=== PATIENT | male | born 1950 | race Caucasian/White ===

== ENCOUNTER 2021-06-23 10:22 | Outpatient (CLI) | payer MEDICARE, SELFPAY | END 2021-06-23 10:23 | disposition home or self-care (01) | LOC: ANHAUDIO 10:24 | PROVIDERS: PCP Emergency Medicine; Visit Provider Emergency Medicine | DX: H90.3 Sensorineural hearing loss, bilateral (principal) | CPT/HCPCS: 92557; 92567 ==

== ENCOUNTER → 2021-12-15 11:50 | Outpatient (CLI) | payer MEDICARE, SELFPAY ==
--- NOTE | ~2021-12-15 | XR_ITS ---
EXAMINATION: XR chest 2V DATE: 12/15/2021 12:05 INDICATION: COVID pneumonia TECHNIQUE: PA and lateral views of the chest were obtained. COMPARISON: Chest radiograph dated 11/23/2013 FINDINGS: Stable appearance of a cluster small calcified nodules and associated linear atelectasis/scarring at the lateral right mid to upper lung zone. Cluster of a few additional small calcified nodules in the left midlung zone. Mild biapical pleural-parenchymal scarring. Additional mild peripheral atelectasis /scarring at the lateral left lower lung zone. No other airspace opacities, pulmonary edema, pleural effusion or pneumothorax. The cardiomediastinal silhouette is normal. Mild thoracolumbar dextrocurvat ure with severe spondylosis. Partially visualized bilateral vertical nevaeh and screw fixation at the ca udal margin of the field of imaging. IMPRESSION: 1. No acute cardiopulmonary disease. Reviewed, dictated and finalized at location B.
== END ==
PROVIDERS: PCP Emergency Medicine; Visit Provider Emergency Medicine
DX: U07.1 COVID-19 (principal); J12.82 Pneumonia due to coronavirus disease 2019
CPT/HCPCS: 71046

== ENCOUNTER 2022-01-26 14:00 | Outpatient (RCR) | payer MEDICARE, SELFPAY | END 2022-01-26 23:59 | disposition home or self-care (01) | LOC: ANHAUDIO 14:00 | PROVIDERS: PCP Emergency Medicine; Visit Provider Emergency Medicine | DX: Z46.1 Encounter for fitting and adjustment of hearing aid (principal) | CPT/HCPCS: 99199; V5160; V5261 ==

== ENCOUNTER 2022-02-27 09:13 | Outpatient (RCR) | payer MEDICARE, SELFPAY | END 2022-02-27 23:59 | disposition home or self-care (01) | LOC: ANHAUDIO 09:13 | PROVIDERS: PCP Emergency Medicine; Visit Provider Emergency Medicine | DX: Z46.1 Encounter for fitting and adjustment of hearing aid (principal) | CPT/HCPCS: 99199 ==

== ENCOUNTER 2022-07-13 15:18 | Observation (INO) | payer MEDICARE, SELFPAY ==
[2022-07-13] VITALS (30 sets, daily range): BP systolic 96–123; BP diastolic 64–86; PULSE 73–103; RESP 11–28; TEMP 36.6–37; O2SAT 93–98; BMI 23.5
--- NOTE | ~2022-07-13 | XR_ITS ---
EXAMINATION: XR chest 1V portable Exam Date/Time: 07/13/2022 15:50 CROSSING WATCHMAN HISTORY: SOB, WEAKNESS 1WK AND GETTING WORSE Comparison: 12/15/2021. RESULT: Lines, tubes, and devices: None. Lungs and pleura: Stable left mid and right peripheral reticulonodular opacities. Slightly increased diffuse reticular opacities. Cardiomediastinal silhouette: Stable. Other: No acute osseous or upper abdominal finding. IMPRESSION: Worsening reticular pulmonary opacities may reflect mild interstitial edema versus atypical infection . Reviewed, dictated and finalized at location K. SING WATCHMAN IMPRESSION: Worsening reticular pulmonary opacities may reflect mild interstitial edema daniel roberto atypical infection.
--- NOTE | 2022-07-13 15:33 | ECG_ITS ---
Measurements Intervals [place] Rate: 77 P: 64 CO: 148 QRS: 15 QRSD: 94 T: 52 QT: 374 QTc: 425 Interpretive Statements SINUS RHYTHM CANNOT RULE OUT SEPTAL INFARCT, AGE INDETERMINATE ABNORMAL ECG COMPARED TO ECG 08/25/2018 11:54:39 NO SIGNIFICANT CHANGES Electronically Signed On 07-13-2022 20:24:39 CONDITIONER TUMBLER by Zana Hill D.O.
[2022-07-13 15:55] LABS: Basophils Percent Auto 0.4 % (0.2-1.2); Eosinophils Absolute Auto 0.1 K/mm3 (0-0.3); Eosinophils Percent Auto 0.7 % (0-4.4); Hematocrit 33.7 % (42.0-52.0); Immature Granulocyte Absolute 0.02 K/mm3 (0.00-0.031); Immature Granulocyte Percent A 0.2 % (0-0.5); Lymphocytes Absolute Auto 2.83 K/mm3 (0.9-3.2); Lymphocytes Percent Auto 31.1 % (18.3-44.2); Mean Corpuscular HGB Conc 32.6 g/dl (32-36); Mean Corpuscular Hemoglobin 28.6 pg (26-34); Mean Corpuscular Volume 87.5 fl (80-100); Mean Platelet Volume 8.8 fl (7.4-10.4); Monocytes Absolute Auto 0.9 K/mm3 (0.1-0.6); Monocytes Percent Auto 10.3 % (2.6-8.5); Neutrophils Absolute Auto 5.2 K/mm3 (1.3-6.7); Neutrophils Percent Auto 57.3 % (45.5-73.1); Platelet Count Result 414 k/mm3 (150-375); Red Blood Count 3.85 M/mm3 (4.6-6.20); Red Cell Distribution Width 13.6 % (11.5-14.5); White Blood Count 9.1 K/mm3 (4.5-10.0)
[2022-07-13 16:08] LABS: Alanine Aminotransferase 14 U/L (6-50); Albumin Level 3.8 g/dL (3.5-5.1); Alkaline Phosphatase 102 U/L (38-126); Anion Gap 8 mmol/L (8-16); Aspartate Amino Transferase 17 U/L (17-59); Bilirubin,Total 0.4 mg/dL (0.2-1.3); Blood Urea Nitrogen 12 mg/dL (9-20); Calcium 8.6 mg/dL (8.4-10.2); Carbon Dioxide 23 mmol/L (22-30); Chloride 107 mmol/L (98-107); Estimated CRCL calculation 74 ml/min; Estimated Glomerular Filt Rate > 60; Glucose 94 mg/dL (65-110); Sodium 138 mmol/L (137-145)
--- NOTE | 2022-07-13 16:08 | ED.SOB ---
HPI - SOB/Dyspnea General Chief Complaint: Shortness of Breath/Dyspnea Stated Complaint: INCREASED SOB, WEAKNESS Time Seen by Provider: 07/13/22 16:00 History of Present Illness HPI Narrative: Pt presents with progressively worsening SOB with exertion for the last week. Pt has history of COPD. Pt had a fever he thinks last night but tylenol relieved it. Pt denies CP. Pt has occasional cough. Related Data Allergies Allergy/AdvReac Type Severity Reaction Status Date / Time oxycodone Allergy Severe HIVES Verified 09/22/19 10:21 Review of Systems Review of Systems: All systems reviewed & are unremarkable except as noted in HPI and below PMFSH Family History Family History (System 09/22/19 @ 10:21 by Yumiko Murray) Sibling Patient's brother is in good health Other Family history of tuberculosis Social History Social History (System 09/22/19 @ 10:21 by Yumiko Murray) Smoking status: Former smoker Alcohol intake: never Exam Const: General: no acute distress Nutritional Appearance: well nourished Orientation/consciousness: patient oriented x3 Limitations: no limitations Eyes: Conjunctivae: conjunctivae normal EOM: EOMs intact bilaterally Chest: Chest palpation & inspection: normal inspection of the chest Resp: Effort & Inspection: normal respiratory effort Auscultation: diminished lung sounds Cardio: Rate: regular rate Rhythm: regular rhythm GI: GI Palp: Yes Soft to palpation Auscultation: normal bowel sounds Skin: General skin exam: normal color Wounds: no wounds Neuro: General: patient oriented x3, moves all extremities, no focal motor deficits and CN's II-XI intact bilaterally Speech: normal speech Extrem: General: normal to inspection and no clubbing, cyanosis or edema Psych: Mental Status: mental status grossly normal Affect: normal affect Attitude: cooperative Course Vital Signs Vital signs: Vital Signs Temperature 98.6 F 07/13/22 15:28 Pulse Rate 80 07/13/22 15:28 Respiratory Rate 21 H 07/13/22 15:28 Blood Pressure 118/78 07/13/22 15:28 Pulse Oximetry 98 07/13/22 15:28 Oxygen Delivery Nasal Cannula 07/13/22 15:28 Oxygen Flow Rate 3 07/13/22 15:28 Temperature 98.6 F 07/13/22 15:28 Pulse Rate 92 07/13/22 18:03 Respiratory Rate 28 H 07/13/22 18:03 Blood Pressure 112/64 07/13/22 18:03 Pulse Oximetry 98 07/13/22 17:47 Oxygen Delivery Nasal Cannula 07/13/22 15:28 Oxygen Flow Rate 3 07/13/22 15:28 MDM - SOB/Dyspnea MDM Narrative Medical decision making narrative: Pt presents with progressivley worsening SOB with exertion over the last week. likely copd exacerbation but need to rule out CAD and pneumonia and chf. ekg, labs and cxr ordered as well as a neb treatment and solumedrol. pt slighlty better after neb and steroids but stil sob, cxr shows atypical pneumonia. discussed with sara jones admit to obs and treat with zithromax Differential Diagnosis Differential diagnosis: Likely acute exacerbation of chronic obstructive airways disease, congestive heart failure, community acquired pneumonia and asthma with exacerbation Medical Records Attestation: I reviewed the patient's medical records. Lab Data Attestation: I reviewed the patient's lab results. 07/13/22 15:43 07/13/22 15:43 Labs: Lab Results 07/13/22 07/13/22 07/13/22 Range/Units 15:42 15:43 15:43 WBC 9.1 (4.5-10.0) K/mm3 RBC 3.85 L (4.6-6.20) M/mm3 Hgb 11.0 L (14.0-18.0) g/dL Hct 33.7 L (42.0-52.0) % MCV 87.5 (80-100) fl MCH 28.6 (26-34) pg MCHC 32.6 (32-36) g/dl RDW 13.6 (11.5-14.5) % Plt Count 414 H (150-375) k/mm3 MPV 8.8 (7.4-10.4) fl Immature Gran % (Auto) 0.2 (0-0.5) % Neut % (Auto) 57.3 (45.5-73.1) % Lymph % (Auto) 31.1 (18.3-44.2) % [place] % (Auto) 10.3 H (2.6-8.5) % Eos % (Auto) 0.7 (0-4.4) % Baso % (Auto) 0.4 (0.2-1.2) % Lymph # (Auto) 2.83
[2022-07-13 16:14] LABS: INR 2.2; Partial Thromboplastin Time 56.4 SECONDS (22.3-36.8); Prothrombin Time 23.9 Seconds (11.1-14.7)
[2022-07-13 16:18] LABS: NT Pro B Type Natriuretic Pept 69 pg/mL (19.9-100); Troponin I < 0.012 ng/mL (0.000-0.034)
[2022-07-13] MEDS: IPRATROPIUM BR 0.02% INH SOLN 0.5 MG/2.5 ML VIAL INHALATION ×2 (16:28→21:37)
[2022-07-13] MEDS: ALBUTEROL SULFATE NEB 2.5 MG/3 ML INH INHALATION (16:28)
[2022-07-13 16:31] LABS: Influenza A QL RT-PCR Negative (Negative); Influenza B QL RT-PCR Negative (Negative); SARS-CoV-2 RNA PCR Negative
[2022-07-13] MEDS: methylPREDNISolone SOD SUCC 125 MG VIAL IV PUSH (16:32)
--- NOTE | 2022-07-13 17:30 | PM.IMHP ---
H&P: HPI History of Present Illness Date/Time: 07/13/22 17:30 Chief Complaint: Shortness of breath. Narrative: This is a 72-year-old male with former smoker with COPD, paroxysmal atrial fibrillation on anticoagulation, and history of stroke who presented to the ED for evaluation of shortness of breath. He has not been feeling well for approximately 1 week with generalized malaise, decreased energy, wheezing, increasing dyspnea on lesser and lesser exertion, and a fever of 101.7? last night. His gave him Tylenol last night and the fever has not returned. He has been using his nebulizers and inhalers at home which unfortunately have not provided him with longstanding benefit with regards with shortness of breath and wheezing and he came in today for evaluation. He was negative for influenza and COVID. Chest x-ray showed worsening reticular pulmonary opacities which may reflect mild interstitial edema versus atypical infection. In the ED he was given a nebulizer and Solu-Medrol with some improvement. He has been started on antibiotics and is being admitted for further care. His grandson has had similar symptoms. He denies chest pain and pleuritic pain. Appetite has been good he denies nausea, vomiting, and diarrhea. No dysuria. Review of Systems Review of Systems: Twelve systems were reviewed and are negative except for as per HPI. [facility] Past Medical History Medical History Arthritis Cerebrovascular accident No significant residual deficits. Chronic anticoagulation Chronic obstructive pulmonary disease Dyslipidemia Obstructive sleep apnea Paroxysmal atrial fibrillation Tobacco dependence Surgical History Surgical History History of fusion of cervical spine History of lumbosacral spine surgery History of right knee joint replacement Family History Family History Sibling Patient's brother is in good health Other Family history of tuberculosis Social History Social History (Updated 07/14/22 @ 00:34 by Azra Kirk PA-C) Social History: Surrogate medical decision maker: Rosemary Benoit, spouse. Code status: Full code. Smoking packs per day: 1.5 Smoking cigarettes per day: 30.0 Years smoked: 50 Smoking pack-years: 75.00 Smoking status: Former smoker Tobacco type: cigarettes Alcohol intake: never Substance use: never Lack of Transportation: YES Lack of Food: Never True Current Housing: I Have Housing Concerned About Future Housing: No Difficulty Paying Gas/Electric Bills: No Difficulty Paying for Meds: No Currently Unemployed: No Education: High School Diploma/GED Difficulty w/ Childcare or Family Care: No Additional living arrangements comments: Lives with spouse in [place]. 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 Spiritual care concerns: No Meds Home Medications and Allergies Allergies Allergy/AdvReac Type Severity Reaction Status Date / Time oxycodone Allergy Severe HIVES Verified 09/22/19 10:21 Vital Signs Vital Signs - 24 hr 07/13/22 15:28 07/13/22 15:45 07/13/22 16:29 Temperature 98.6 F Pulse Rate 80 80 73 Respiratory Rate 21 H 21 H Blood Pressure 118/78 Pulse Oximetry 98 Oxygen Delivery Nasal Cannula Oxygen Flow Rate 3 07/13/22 16:41 Temperature Pulse Rate 82 Respiratory Rate 21 H Blood Pressure Pulse Oximetry Oxygen Delivery Oxygen Flow Rate H&P: Results Labs Labs: Short CBC 07/13/22 Range/Units 15:43 WBC 9.1 (4.5-10.0) K/mm3 Hgb 11.0 L (14.0-18.0) g/dL Hct 33.7 L (42.0-52.0) % Plt Count 414 H (150-375) k/mm3 BMP 07/13/22 15:43 Sodium 138 Potassium 4.0 Chloride 107 Carbon Dioxide 23 BUN 12 Creatinine 0.80 Glucose 94 Calcium 8.6 Cardiac Enzymes
--- NOTE | 2022-07-13 20:12 | ADMGEN ---
This patient, Fer Benoit, was admitted to Medical Room 346-. Patient/family oriented to hospital policies and general routines including ID bracelet, bed and alarms, visiting hours, pain management, procedures, bathroom and other care routines, personal items, smoking policy, room service/diet, and visiting hours. Information on how to activate the Rapid Response Team has been discussed. Patient/Family are encouraged to report perceived risks to care and to ask questions if they do not understand what they are told or what they should do.
[2022-07-13] MEDS: ALBUTEROL SULFATE NEB 2.5 MG/3 ML INH 5 MG INHALATION (21:37)
[2022-07-13] MEDS: SODIUM CHLORIDE 0.9% IV 1,000 ML 125 ML IV CONT (21:48)
[2022-07-14] VITALS (7 sets, daily range): BP systolic 117; BP diastolic 58; PULSE 84–92; RESP 18–20; TEMP 36.3; O2SAT 94–96
[2022-07-14] MEDS: ALBUTEROL SULFATE NEB 2.5 MG/3 ML INH INHALATION ×2 (03:17→07:49)
[2022-07-14] MEDS: IPRATROPIUM BR 0.02% INH SOLN 0.5 MG/2.5 ML VIAL INHALATION ×2 (03:17→07:50)
--- NOTE | 2022-07-14 04:00 | PCRCNOTE ---
WILL BRING HIS CPAP IN IF HE STAYS ANOTHER NIGHT
[2022-07-14] MEDS: SODIUM CHLORIDE 0.9% IV 1,000 ML 125 ML IV CONT (06:03)
[2022-07-14 06:10] LABS: Hematocrit 34.8 % (42.0-52.0); Hemoglobin 11.2 g/dL (14.0-18.0); Mean Corpuscular HGB Conc 32.2 g/dl (32-36); Mean Corpuscular Hemoglobin 28.4 pg (26-34); Mean Corpuscular Volume 88.3 fl (80-100); Mean Platelet Volume 8.6 fl (7.4-10.4); Platelet Count Result 427 k/mm3 (150-375); Red Blood Count 3.94 M/mm3 (4.6-6.20); Red Cell Distribution Width 13.4 % (11.5-14.5); White Blood Count 8.8 K/mm3 (4.5-10.0)
[2022-07-14 06:21] LABS: Anion Gap 5 mmol/L (8-16); Blood Urea Nitrogen 11 mg/dL (9-20); Calcium 8.9 mg/dL (8.4-10.2); Carbon Dioxide 26 mmol/L (22-30); Chloride 105 mmol/L (98-107); Estimated CRCL calculation 90 ml/min; Estimated Glomerular Filt Rate > 60; Glucose 189 mg/dL (65-110); Magnesium 2.2 mg/dL (1.6-2.3); Sodium 136 mmol/L (137-145)
--- NOTE | 2022-07-14 08:18 | P.PNIM_ITS ---
Progress Note: A&P Assessment and Plan (1) Acute exacerbation of chronic obstructive airways disease: Code(s): J44.1 - Chronic obstructive pulmonary disease with (acute) exacerbation Status: Acute Assessment and Plan: * presented to the emergency department from home for evaluation of increasing shortness of breath over past 1 week. * Denies increased cough with sputum production or changes in sputum * Azithromycin on board * Sputum culture ordered * Continue Steroids 40mg PO daily * Neb treatments (2) Atypical pneumonia: Code(s): J18.9 - Pneumonia, unspecified organism Status: Acute Assessment and Plan: * Chest xray shows atypical PNA vs pulm edema * BNP 69 * Azithromycin and ceftriaxone on board * WBC stable at8.8 * Sputum culture ordered * Pneumococcal and legionella ordered and pending * Blood cultures ordered * Continue supplemental oxygen, wean to maintain saturations >90% (3) Paroxysmal atrial fibrillation: Code(s): I48.0 - Paroxysmal atrial fibrillation Status: Acute Assessment and Plan: * History of Afib * continue Xarelto for stroke prophylaxis * EKG shows SR * HR is controlled (4) Chronic anticoagulation: Code(s): Z79.01 - hoister (current) use of anticoagulants Status: Acute Assessment and Plan: * See above (5) Dyslipidemia: Code(s): E78.5 - Hyperlipidemia, unspecified Status: Acute Assessment and Plan: * Continue home atorvastatin * Lipid panel in the am (6) Hypertension: Code(s): I10 - Essential (primary) hypertension Status: Acute Assessment and Plan: * Current BP is 117/58 * Continue losartan * Trend BP * Adjust therapy as indicated Time Spent With Patient Time with patient: Greater than 35 minutes Subjective Date/time seen: 07/14/22 08:18 Interval history: 07/14/22 07/13/22? 17:30 This is a 72-year-old male with former smoker with COPD, paroxysmal atrial fibrillation on anticoagulation, and history of stroke who presented to the ED for evaluation of shortness of breath. He has not been feeling well for approximately 1 week with generalized malaise, decreased energy, wheezing, increasing dyspnea on lesser and lesser exertion, and a fever of 101.7? last night. His gave him Tylenol last night and the fever has not returned. He has been using his nebulizers and inhalers at home which unfortunately have not provided him with longstanding benefit with regards with shortness of breath and wheezing and he came in today for evaluation. He was negative for influenza and COVID. Chest x-ray showed worsening reticular pulmonary opacities which may reflect mild interstitial edema versus atypical infection. In the ED he was given a nebulizer and Solu-Medrol with some improvement.? He has been started on antibiotics and is being admitted for further care. His grandson has had similar symptoms.? He denies chest pain and pleuritic pain.? Appetite has been good he denies nausea, vomiting, and diarrhea. No dysuria. Review of Systems Review of Systems: All systems reviewed & are unremarkable except as noted in HPI and below Exam Narrative: General: well-nourished, w
--- NOTE | 2022-07-14 08:18 | PM.IMPN ---
Progress Note: A&P Assessment and Plan (1) Acute exacerbation of chronic obstructive airways disease: Code(s): J44.1 - Chronic obstructive pulmonary disease with (acute) exacerbation Status: Acute Assessment and Plan: presented to the emergency department from home for evaluation of increasing shortness of breath over past 1 week. Denies increased cough with sputum production or changes in sputum Azithromycin on board Sputum culture ordered Continue Steroids 40mg PO daily Neb treatments (2) Atypical pneumonia: Code(s): J18.9 - Pneumonia, unspecified organism Status: Acute Assessment and Plan: Chest xray shows atypical PNA vs pulm edema BNP 69 Azithromycin and ceftriaxone on board WBC stable at8.8 Sputum culture ordered Pneumococcal and legionella ordered and pending Blood cultures ordered Continue supplemental oxygen, wean to maintain saturations >90% (3) Paroxysmal atrial fibrillation: Code(s): I48.0 - Paroxysmal atrial fibrillation Status: Acute Assessment and Plan: History of Afib continue Xarelto for stroke prophylaxis EKG shows SR HR is controlled (4) Chronic anticoagulation: Code(s): Z79.01 - terminal gauger (current) use of anticoagulants Status: Acute Assessment and Plan: See above (5) Dyslipidemia: Code(s): E78.5 - Hyperlipidemia, unspecified Status: Acute Assessment and Plan: Continue home atorvastatin Lipid panel in the am (6) Hypertension: Code(s): I10 - Essential (primary) hypertension Status: Acute Assessment and Plan: Current BP is 117/58 Continue losartan Trend BP Adjust therapy as indicated Time Spent With Patient Time with patient: Greater than 35 minutes Subjective Date/time seen: 07/14/22 08:18 Interval history: 07/14/22 07/13/22? 17:30 This is a 72-year-old male with former smoker with COPD, paroxysmal atrial fibrillation on anticoagulation, and history of stroke who presented to the ED for evaluation of shortness of breath. He has not been feeling well for approximately 1 week with generalized malaise, decreased energy, wheezing, increasing dyspnea on lesser and lesser exertion, and a fever of 101.7? last night. His gave him Tylenol last night and the fever has not returned. He has been using his nebulizers and inhalers at home which unfortunately have not provided him with longstanding benefit with regards with shortness of breath and wheezing and he came in today for evaluation. He was negative for influenza and COVID. Chest x-ray showed worsening reticular pulmonary opacities which may reflect mild interstitial edema versus atypical infection. In the ED he was given a nebulizer and Solu-Medrol with some improvement.? He has been started on antibiotics and is being admitted for further care. His grandson has had similar symptoms.? He denies chest pain and pleuritic pain.? Appetite has been good he denies nausea, vomiting, and diarrhea. No dysuria. Review of Systems Review of Systems: All systems reviewed & are unremarkable except as noted in HPI and below Exam Narrative: General: well-nourished, well-appearing 72-year-old male, sitting up in bed, comfortable, NARD Neuro: awake, alert and oriented x4, speech clear, no focal neuro deficits noted HEENMT: normocephalic, atraumatic, EOMI, sclerae anicteric, moist oral mucosa Respiratory: Clear to auscultation bilaterally without crackles, rhonchi or wheezes, nonlabored breathing Cardio: regular rate, regular rhythm with S1-S2 Abdomen: nondistended, normoactive bowel sounds, soft, nontender to palpation Extremities: no edema, erythema, or tenderness to palpation, DP pulses 2+ bilaterally Skin: no rashes or lesions, warm and dry Psych: appropriate mood and affect, judgment and insight
[2022-07-14] MEDS: TAMSULOSIN HCL 0.4 MG CAPSULE PO (09:51)
[2022-07-14] MEDS: PANTOPRAZOLE 40 MG TABLET PO (09:51)
[2022-07-14] MEDS: ATORVASTATIN 40 MG TABLET PO (09:51)
[2022-07-14] MEDS: LOSARTAN POTASSIUM 25 MG TABLET PO (09:51)
[2022-07-14] MEDS: predniSONE 20 MG TABLET 40 MG PO (09:51)
--- NOTE | 2022-07-14 11:00 | PM.DS ---
DS: Admitting Diagnosis Discharge Date 07/14/22 1100 Admitting Diagnosis Atypical pneumonia, COPD DS: Discharge Diagnosis Discharge Diagnosis (1) Acute exacerbation of chronic obstructive airways disease: Code(s): J44.1 - Chronic obstructive pulmonary disease with (acute) exacerbation Status: Acute Assessment and Plan: presented to the emergency department from home for evaluation of increasing shortness of breath over past 1 week. Denies increased cough with sputum production or changes in sputum Azithromycin on board Sputum culture ordered Continue Steroids 40mg PO daily Neb treatments (2) Atypical pneumonia: Code(s): J18.9 - Pneumonia, unspecified organism Status: Acute Assessment and Plan: Chest xray shows atypical PNA vs pulm edema BNP 69 Azithromycin and ceftriaxone on board WBC stable at8.8 Sputum culture ordered Pneumococcal and legionella ordered and pending Blood cultures ordered Continue supplemental oxygen, wean to maintain saturations >90% (3) Paroxysmal atrial fibrillation: Code(s): I48.0 - Paroxysmal atrial fibrillation Status: Acute Assessment and Plan: History of Afib continue Xarelto for stroke prophylaxis EKG shows SR HR is controlled (4) Chronic anticoagulation: Code(s): Z79.01 - director long term care (current) use of anticoagulants Status: Acute Assessment and Plan: See above (5) Dyslipidemia: Code(s): E78.5 - Hyperlipidemia, unspecified Status: Acute Assessment and Plan: Continue home atorvastatin Lipid panel in the am (6) Hypertension: Code(s): I10 - Essential (primary) hypertension Status: Acute Assessment and Plan: Current BP is 117/58 Continue losartan Trend BP Adjust therapy as indicated DS: Summary Hospital Course Hospital Course: patient is 72-year-old male with a past medical history of COPD, AFib, CVA who presented to the ED with complaints of shortness of breath. Patient stated that he has not been feeling well for over week. Upon arrival to the ED the chest x-ray showed worsening pulmonary opacities reflecting mild pulmonary edema versus atypical pneumonia. BNP was 69. Patient does seem to feel significantly better today. Patient was started on steroids, azithromycin, ceftriaxone. Patient is at his baseline oxygen requirements of 3 L. 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 Today patient is stable per labs and vital signs. Temperature is have also been stable. Blood cultures have been drawn and are pending. Patient is wanting to be discharged at this time. He currently denies any chest pain, shortness a breath, nausea, diarrhea, constipation weakness or fatigue. Patient is requesting a nebulizer treatment machine. Patient is being discharged home and is stable for discharge at this time per labs and vital signs. Status at Discharge Functional status at discharge: independent ambulation Overall status at discharge: patient is back to baseline Time Spent with Patient Time attestation: Total time spent providing and/or coordinating discharge services: 38 minutes Time spent: Greater than 30 minutes Specific discharge activities: Diagnostic testing, chart review, developing a treatment plan, education, care coordination documentation, physical exam, result review Exam Narrative: General: well-nourished, well-appearing 72-year-old male, sitting up in bed, comfortable, NARD Neuro: awake, alert and oriented x4, speech clear, no focal neuro deficits noted HEENMT: normocephalic, atraumatic, EOMI, sclerae anicteric, moist oral mucosa Respiratory: Clear to auscultation bilaterally without crackles, rhonchi or wheezes, nonlabored breathing Cardio: regular rate, regular rhythm with S1-S2 Abdomen: nondistended, normoactive bowel sounds, soft
--- NOTE | 2022-07-14 11:00 | P.DS_ITS ---
DS: Admitting Diagnosis Discharge Date 07/14/22 1100 Admitting Diagnosis Atypical pneumonia, COPD DS: Discharge Diagnosis Discharge Diagnosis (1) Acute exacerbation of chronic obstructive airways disease: Code(s): J44.1 - Chronic obstructive pulmonary disease with (acute) exacerbation Status: Acute Assessment and Plan: * presented to the emergency department from home for evaluation of increasing shortness of breath over past 1 week. * Denies increased cough with sputum production or changes in sputum * Azithromycin on board * Sputum culture ordered * Continue Steroids 40mg PO daily * Neb treatments (2) Atypical pneumonia: Code(s): J18.9 - Pneumonia, unspecified organism Status: Acute Assessment and Plan: * Chest xray shows atypical PNA vs pulm edema * BNP 69 * Azithromycin and ceftriaxone on board * WBC stable at8.8 * Sputum culture ordered * Pneumococcal and legionella ordered and pending * Blood cultures ordered * Continue supplemental oxygen, wean to maintain saturations >90% (3) Paroxysmal atrial fibrillation: Code(s): I48.0 - Paroxysmal atrial fibrillation Status: Acute Assessment and Plan: * History of Afib * continue Xarelto for stroke prophylaxis * EKG shows SR * HR is controlled (4) Chronic anticoagulation: Code(s): Z79.01 - long term (current) use of anticoagulants Status: Acute Assessment and Plan: * See above (5) Dyslipidemia: Code(s): E78.5 - Hyperlipidemia, unspecified Status: Acute Assessment and Plan: * Continue home atorvastatin * Lipid panel in the am (6) Hypertension: Code(s): I10 - Essential (primary) hypertension Status: Acute Assessment and Plan: * Current BP is 117/58 * Continue losartan * Trend BP * Adjust therapy as indicated DS: Summary Hospital Course Hospital Course: patient is 72-year-old male with a past medical history of COPD, AFib, CVA who presented to the ED with complaints of shortness of breath. Patient stated that he has not been feeling well for over week. Upon arrival to the ED the chest x-ray showed worsening pulmonary opacities reflecting mild pulmonary edema versus atypical pneumonia. BNP was 69. Patient does seem to feel significantly better today. Patient was started on steroids, azithromycin, ceftriaxone. Patient is at his baseline oxygen requirements of 3 L. 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 Today patient is stable per labs and vital signs. Temperature is have also been stable. Blood cultures have been drawn and are pending. Patient is wanting to be discharged at this time. He currently denies any chest pain, shortness a breath, nausea, diarrhea, constipation weakness or fatigue. Patient is requesting a nebulizer treatment machine. Patient is being discharged home and is stable for discharge at this time per labs and vital signs. Status at Discharge Functional status at discharge: independent ambulation Overall status at discharge: patient is back to baseline Time Spent with Patient Time attestation: Total time spent providing and/or coordinating discharge services: 38 minutes Time spent: Greater than 30 minutes Specific discharge activities: Diagnostic testin
--- NOTE | 2022-07-14 14:10 | PCRCNOTE ---
HOME NEBULIZER WILL BE SET UP WITH IV RESPIRATORY CARE.
[2022-07-17 17:36] LABS: Pneumococcal Antigen Urine Not Detected (Not Detected)
[2022-07-18 21:37] LABS: Legionella pneumophila Ag Ur Not Detected (Not Detected)
== END 2022-07-14 15:14 | disposition home or self-care (01) ==
LOC: ANHED 17:24 → ANH3MED 21:03
PROVIDERS: Emergency Medicine; Physician Assistant; Admitting Provider Internal Medicine; Emergency Provider Emergency Medicine; PCP Emergency Medicine; Visit Provider Chiropractor
DX: J44.1 Chronic obstructive pulmonary disease with (acute) exacerbation (principal); J18.9 Pneumonia, unspecified organism; I48.0 Paroxysmal atrial fibrillation; Z20.822 Contact with and (suspected) exposure to COVID-19; R91.8 Other nonspecific abnormal finding of lung field; R94.31 Abnormal electrocardiogram [ECG] [EKG]; M19.90 Unspecified osteoarthritis, unspecified site; E78.5 Hyperlipidemia, unspecified; G47.33 Obstructive sleep apnea (adult) (pediatric); Z86.73 Personal history of transient ischemic attack (TIA), and cerebral infarction without residual deficits; Z87.891 Personal history of nicotine dependence; Z79.01 Long term (current) use of anticoagulants
CPT/HCPCS: 36415; 71045; 80048; 80053; 83735; 83880; 84484; 85025; 85027; 85610; 85730; 87040; 87449; 87636; 87899; 93005; 94640; 96361; 96365; 96367; 96375; 99285; A9270; G0378; J0456; J0696; J2930; J7030; J7512

== ENCOUNTER 2022-08-25 00:15 | Day surgery (SDC) | payer MEDICARE, SELFPAY ==
[2022-07-17 11:49] VITALS: BMI 24.4
[2022-08-14 14:20] VITALS: BMI 24.4
--- NOTE | 2022-08-24 09:33 | WPDANESEPPF ---
Anes - Initial Pre Proc Eval Procedure: Operation Date: 08/25/22 10:00 Proposed Procedures p Esophagogastroduodenoscopy & Colonoscopy - Ino Oshea MD Date/Time: 08/24/22 09:33 Surgeon: Ino Oshea MD Pre Op Diagnosis: positive fecal globin, Anemia, GERD Patient Data Age: 72 Gender: M Height: 1.8 m Weight: 79.5 kg Allergies Allergy/AdvReac Type Severity Reaction Status Date / Time oxycodone Allergy Severe HIVES Verified 08/25/22 08:39 Home Medications Medication Instructions Recorded Confirmed Type albuterol sulfate 1.25 mg/3 mL 1.25 mg (3 mL) inhalation Q4H PRN 07/14/22 08/25/22 Rx solution for nebulization shortness of breath or wheezing #90 mL atorvastatin 40 mg tablet 40 mg PO DAILY 07/14/22 08/25/22 History cefdinir 300 mg capsule 300 mg PO Q12H #14 caps 07/14/22 08/25/22 Rx cyclobenzaprine 10 mg tablet 10 mg PO BID PRN Pain, Mild 07/14/22 08/25/22 History gabapentin 300 mg capsule 300 mg PO DAILY 07/14/22 08/25/22 History hydrocodone 10 mg-acetaminophen 10 - 325 tablet PO QID PRN Pain 07/14/22 08/25/22 History 325 mg tablet (Scale Score 4-6) losartan 25 mg tablet 25 mg PO DAILY 07/14/22 08/25/22 History nebulizer and compressor #1 ea 07/14/22 08/25/22 Rx pantoprazole 40 mg tablet,delayed 40 mg PO DAILY 07/14/22 08/25/22 History release prednisone 20 mg tablet 40 mg PO DAILY@0800 #8 tabs 07/14/22 08/25/22 Rx rivaroxaban 20 mg tablet (Xarelto) 20 mg PO DAILY 07/14/22 08/25/22 History tadalafil 5 mg tablet 5 mg PO DAILY 07/14/22 08/25/22 History tamsulosin 0.4 mg capsule 0.4 mg PO DAILY 07/14/22 08/25/22 History umeclidinium 62.5 mcg/actuation 1 inh inhalation DAILY 01/20/23 02/28/23 History blister powder for inhalation (Incruse Ellipta) Patient hx anesthesia problems: none Family hx anesthesia problems: none Results Review: All pre-operative results and documents have been reviewed as part of the pre-operative evaluation. [facility] Past Medical History Medical History (Updated 08/24/22 @ 09:35 by Ector Felipe DO) Arthritis Atrial fibrillation Cerebrovascular accident No significant residual deficits. Chronic anticoagulation Chronic obstructive pulmonary disease Chronic pain lower back Chronic, continuous use of opioids norco Dyslipidemia Hypertension Obstructive sleep apnea CPAP with O2 at 3 LNC Paroxysmal atrial fibrillation Tobacco dependence Tuberculosis 1989 Surgical History Surgical History History of fusion of cervical spine History of lumbosacral spine surgery History of right knee joint replacement Family History Family History Sibling Patient's brother is in good health Other Family history of tuberculosis Social History Social History (Updated 07/14/22 @ 00:34 by Azra Kirk PA-C) Social History: Surrogate medical decision maker: Rosemaryoctavio Douglasrin, spouse. Code status: Full code. Smoking packs per day: 1.5 Smoking cigarettes per day: 30.0 Years smoked: 47 Smoking pack-years: 70.50 Smoking status: Former smoker Tobacco type: cigarettes Alcohol intake: never Substance use: never Substance use type: does not use Lack of Transportation: YES Lack of Food: Never True Current Housing: I Have Housing Concerned About Future Housing: No Difficulty Paying Gas/Electric Bills: No Difficulty Paying for Meds: No Currently Unemployed: No Education: High School Diploma/GED Difficulty w/ Childcare or Family Care: No Living arrangements: alone Additional living arrangements comments: Lives with spouse in [place]. 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 Spiritual care concerns: No Anes - Eval Final PreProcedure Day of Procedure 08/24/22 09:33 Patient weight: normal Heart: regular rate and rhythm Lungs: c
[2022-08-25 08:30] VITALS: BP 119/67; PULSE 82; RESP 18; TEMP 36.7; O2SAT 96; BMI 25.6
[2022-08-25] MEDS: LACTATED RINGERS 1,000 ML 150 ML IV CONT (08:49)
--- NOTE | 2022-08-25 10:32 | PM.HPGS ---
History of Present Illness History of Present Illness Consent: Risks, benefits, and alternatives have been discussed and questions answered. Patient agrees to proceed with procedure. Chief complaint: positive fecal globin, Anemia, GERD Narrative: Fer Benoit is a 72 year old male with anemia and occult blood in stool, never had egd, had colonoscopy about 4-5 years ago Review of Systems Constitutional: Constitutional: Denies headache(s) and Denies weakness Eyes: Eyes: Denies blurry vision ENT: Reports Normal hearing present, Denies headache(s) and Denies neck pain Cardiovascular: Cardiovascular: Denies chest pain and Denies dyspnea Respiratory: Respiratory: Denies dyspnea Gastrointestinal: Gastrointestinal: Reports no additional gastrointestinal complaints Genitourinary: Genitourinary: Denies dysuria Musculoskeletal: Musculoskeletal: Denies neck pain Integumentary/Breasts: Skin/Breast: Denies dry skin Neurologic: Reports Normal hearing present, Denies headache(s) and Denies weakness Psychiatric: Psychiatric: Denies anxiety Endocrine: Endocrine: Denies change in body appearance Hematologic/Lymphatic: Hematologic/Lymphatic: Denies easy bleeding Allergic/Immunologic: Allergic/Immunologic: Denies urticaria PMF Past Medical History Medical History (Updated 08/25/22 @ 10:32 by Ino Oshea MD) Anemia Arthritis Atrial fibrillation Cerebrovascular accident No significant residual deficits. Chronic anticoagulation Chronic obstructive pulmonary disease Chronic pain lower back Chronic, continuous use of opioids norco Dyslipidemia Hypertension Obstructive sleep apnea CPAP with O2 at 3 LNC Occult blood in stools Paroxysmal atrial fibrillation Tobacco dependence Tuberculosis 1989 Surgical History Surgical History History of fusion of cervical spine History of lumbosacral spine surgery History of right knee joint replacement Family History Family History Sibling Patient's brother is in good health Other Family history of tuberculosis Social History Social History (Updated 07/14/22 @ 00:34 by Azra Kirk PA-C) Social History: Surrogate medical decision maker: Rosemary Benoit, spouse. Code status: Full code. Smoking packs per day: 1.5 Smoking cigarettes per day: 30.0 Years smoked: 47 Smoking pack-years: 70.50 Smoking status: Former smoker Tobacco type: cigarettes Alcohol intake: never Substance use: never Substance use type: does not use Lack of Transportation: YES Lack of Food: Never True Current Housing: I Have Housing Concerned About Future Housing: No Difficulty Paying Gas/Electric Bills: No Difficulty Paying for Meds: No Currently Unemployed: No Education: High School Diploma/GED Difficulty w/ Childcare or Family Care: No Living arrangements: alone Additional living arrangements comments: Lives with spouse in [place]. 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 Spiritual care concerns: No Meds Home Medications and Allergies Home Medications Medication Instructions Recorded Confirmed Type albuterol sulfate 1.25 mg/3 mL 1.25 mg (3 mL) inhalation Q4H PRN 07/14/22 08/25/22 Rx solution for nebulization shortness of breath or wheezing #90 mL atorvastatin 40 mg tablet 40 mg PO DAILY 07/14/22 08/25/22 History cefdinir 300 mg capsule 300 mg PO Q12H #14 caps 07/14/22 08/25/22 Rx cyclobenzaprine 10 mg tablet 10 mg PO BID PRN Pain, Mild 07/14/22 08/25/22 History gabapentin 300 mg capsule 300 mg PO DAILY 07/14/22 08/25/22 History hydrocodone 10 mg-acetaminophen 10 - 325 tablet PO QID PRN Pain 07/14/22 08/25/22 History 325 mg tablet (Scale Score 4-6) losartan 25 mg tablet 25 mg PO DAILY 07/14/22 08/25/22 History nebulizer and compressor #1 ea 07/14/22 08/25/22 Rx
--- NOTE | 2022-08-25 10:58 | SUR.OPER ---
EDG: start 10:40, end 10:44, Colon: start 10:49, end 11:08
[2022-08-25 11:21] VITALS: BP 88/46; PULSE 67; RESP 25; O2SAT 96
[2022-08-25 11:31] VITALS: BP 96/57; PULSE 61; RESP 23; O2SAT 97
[2022-08-25 11:41] VITALS: BP 105/58; PULSE 71; RESP 20; O2SAT 96
== END 2022-08-25 12:02 | disposition home or self-care (01) ==
PROVIDERS: PCP Emergency Medicine; Visit Provider Internal Medicine Gastroenterology
PROC: 0DJ08ZZ Inspection of Upper Intestinal Tract, Via Natural or Artificial Opening Endoscopic (ICD-10-PCS; CPT 43235; principal; 2022-08-25 10:00)
DX: D64.9 Anemia, unspecified (principal); D12.2 Benign neoplasm of ascending colon; D12.0 Benign neoplasm of cecum; K92.1 Melena; K57.30 Diverticulosis of large intestine without perforation or abscess without bleeding; K64.8 Other hemorrhoids; K21.00 Gastro-esophageal reflux disease with esophagitis, without bleeding; K44.9 Diaphragmatic hernia without obstruction or gangrene; I10 Essential (primary) hypertension; G89.29 Other chronic pain; M54.50 Low back pain, unspecified; E78.5 Hyperlipidemia, unspecified; J44.9 Chronic obstructive pulmonary disease, unspecified; G47.33 Obstructive sleep apnea (adult) (pediatric); I48.0 Paroxysmal atrial fibrillation; Z86.73 Personal history of transient ischemic attack (TIA), and cerebral infarction without residual deficits; Z79.51 Long term (current) use of inhaled steroids; Z79.01 Long term (current) use of anticoagulants; Z79.891 Long term (current) use of opiate analgesic; Z98.1 Arthrodesis status; Z87.891 Personal history of nicotine dependence
CPT/HCPCS: 45385; 43239; 88305; J2704; J7120

== ENCOUNTER 2022-11-27 13:20 | Outpatient (CLI) | payer MEDICARE, SELFPAY ==
--- NOTE | ~2022-11-27 | MR_ITS ---
EXAMINATION: MR lumbar spine wo con DATE: 11/27/2022 14:05 INDICATION: Back pain. TECHNIQUE: Magnetic resonance imaging (MRI) of the lumbar spine was performed without intravenous con trast. COMPARISON: Lumbar spine MRI 11/02/2013 FINDINGS: There is 11 degrees levoscoliosis of thoracolumbar spine. There is 3 mm retrolisthesis of L 1 on L2 and L2 on L3 and 6 mm anterolisthesis of L5 on S1. There are changes of posterior fusion proc edure from L4 to S1 with pedicle screws. There is mild chronic anterior wedging of L1 vertebral body. There is severely decreased disc height at T10-T11, moderately decreased disc height at T11-T12 and T12-L1, severely decreased disc height at L1-L2 and L2-L3, and mildly decreased disc height at L3-L4. There is severely decreased disc height at L4-L5 and L5-S1 with interbody fusion. The distal spinal cord signal intensity is normal. The conus medullaris is at L1. The following disc levels are specifi lexie discussed: L1-L2: The disc is bulging and has an annular fissure. There is mild bilateral facet joint osteoarthr itis. There is mild right and moderate left neural foraminal stenosis. There is mild central canal st enosis. L2-L3: The disc is bulging and has an annular fissure. There is moderate bilateral facet joint osteoa rthritis. There is moderate bilateral neural foraminal stenosis. There is mild central canal stenosis . L3-L4: The disc is bulging and has an annular fissure. There is mild bilateral facet joint osteoarthr itis. There is mild bilateral neural foraminal stenosis. There is mild central canal stenosis. L4-L5: There is mild bilateral facet joint hypertrophy. There is mild bilateral neural foraminal sten osis. There is no central canal stenosis. L5-S1: There is mild bilateral facet joint hypertrophy. There is mild bilateral neural foraminal sten osis. There is no central canal stenosis. IMPRESSION: 1. Severe lumbar spondylosis, worsened from 11/02/2013. 2. Posterior fusion procedure from L4 to S1. 3. Thoracolumbar levoscoliosis. Reviewed, dictated and finalized at location A.
--- NOTE | ~2022-11-27 | XR_ITS ---
Lumbosacral Spine: AP and lateral views Clinical History: Pain Findings: There is posterior fusion hardware from L4 through S1, with bilateral rods and transpedicul ar screws present. There is 14 degrees dextroscoliosis of the lumbar spine. There is severe degenerat david disc narrowing at L1-L2 and L2-L3, with moderate facet joint degenerative changes throughout the lumbar spine. No acute fracture or subluxation evident. The sacroiliac joints are normally outlined. Impression: Posterior fusion from L4 through S1. Moderate to advanced degenerative spondylosis, especially the upper lumbar spine, as detailed above. 14 degree dextroscoliosis. Reviewed, dictated and finalized at location M. Impression: Posterior fusion from L4 through S1. Moderate to advanced degenerative spondylosis, especially the upper lumbar spin e, as detailed above. 14 degree dextroscoliosis.
== END 2022-11-27 13:21 | disposition home or self-care (01) ==
PROVIDERS: PCP Emergency Medicine; Visit Provider Emergency Medicine
DX: M54.30 Sciatica, unspecified side (principal); M47.896 Other spondylosis, lumbar region; Z98.1 Arthrodesis status
CPT/HCPCS: 72100; 72148

== ENCOUNTER 2022-12-28 05:36 | Outpatient (CLI) | payer MEDICARE, SELFPAY ==
[2022-12-28] MEDS: SIMETHICONE ORAL SUSPENSION 20 MG/0.3 ML 30 ML BOTTLE 0.6 ML IRRIGATION (06:43)
--- NOTE | 2022-12-28 06:43 | SUR.OPER ---
Patient brought to GI Lab. Instructions for patient undergoing Capsule Endoscopy reviewed with patient. Consent form signed. Sensor array applied to patient's abdomen and connected to recorded. Patient swallowed capsule with 16 ozs of water infused with Simethicone. Patient instructed they may have clear liquids at 0830this AM and eat or drink at 1030 this AM. Patient instructed to return to GI Lab at 1500 this afternoon for removal of recording device and to call [phone] or to return to the hospital if any nausea and vomiting or abdominal pain is experienced.
--- NOTE | 2022-12-28 14:54 | SUR.PHASEII ---
Patient returned to the GI Lab at 1452 for recorder box removal. Patient voiced no complaints. States they have understanding of instructions. Patient left ambulatory. DR ALVAREZ notified via text that the video is now down loading and will be available to be read 12/30/2022
== END 2022-12-28 05:37 | disposition home or self-care (01) ==
PROVIDERS: PCP Emergency Medicine; Visit Provider Internal Medicine Gastroenterology
PROC: 0DJ07ZZ Inspection of Upper Intestinal Tract, Via Natural or Artificial Opening (ICD-10-PCS; CPT 91110; principal; 2022-12-28 07:00)
DX: Z01.818 Encounter for other preprocedural examination (principal)
CPT/HCPCS: 91110

== ENCOUNTER 2023-03-03 02:05 | Day surgery (SDC) | payer MEDICARE, SELFPAY ==
[2023-02-19 12:01] VITALS: BMI 24.5
[2023-03-03 07:45] VITALS: BP 134/73; PULSE 61; RESP 18; TEMP 36.5; O2SAT 96; BMI 24.3
[2023-03-03] MEDS: LACTATED RINGERS 1,000 ML 150 ML IV CONT (08:05)
--- NOTE | 2023-03-03 08:41 | WPDANESEPPF ---
Anes - Initial Pre Proc Eval Procedure: Operation Date: 03/03/23 09:30 Proposed Procedures p Esophagogastroduodenoscopy With Push Enteroscopy(use colonoscope) - Ino Oshea MD Date/Time: 03/03/23 08:41 Surgeon: Ino Oshea MD Pre Op Diagnosis: Angiodysplasia of colon without hemorrhage Patient Data Age: 72 Gender: M Height: 1.8 m Weight: 79.2 kg Last Vital Signs Temp 97.7 F 03/03/23 07:45 Pulse 61 03/03/23 07:45 Resp 18 03/03/23 07:45 BP 134/73 03/03/23 07:45 Pulse Ox 96 03/03/23 07:45 O2 Del Method Room Air 03/03/23 07:45 Allergies Allergy/AdvReac Type Severity Reaction Status Date / Time oxycodone Allergy Severe Swelling Verified 03/03/23 07:54 of the Eye Home Medications Medication Instructions Recorded Confirmed Type albuterol sulfate 1.25 mg/3 mL 1.25 mg (3 mL) inhalation Q4H PRN 07/14/22 03/03/23 Rx solution for nebulization shortness of breath or wheezing #90 mL atorvastatin 40 mg tablet 40 mg PO DAILY 07/14/22 03/03/23 History gabapentin 300 mg capsule 300 mg PO DAILY 07/14/22 03/03/23 History hydrocodone 10 mg-acetaminophen 10 - 325 tablet PO QID PRN Pain 07/14/22 03/03/23 History 325 mg tablet (Scale Score 4-6) losartan 25 mg tablet 25 mg PO DAILY 07/14/22 03/03/23 History nebulizer and compressor #1 ea 07/14/22 03/03/23 Rx rivaroxaban 20 mg tablet (Xarelto) 20 mg PO DAILY 07/14/22 03/03/23 History tadalafil 5 mg tablet 5 mg PO DAILY 07/14/22 03/03/23 History tamsulosin 0.4 mg capsule 0.4 mg PO DAILY 07/14/22 03/03/23 History umeclidinium 62.5 mcg/actuation 1 inh inhalation DAILY 07/17/22 03/03/23 History blister powder for inhalation (Incruse Ellipta) pantoprazole 40 mg tablet,delayed 40 mg PO DAILY #30 tabs 08/25/22 03/03/23 Rx release cyanocobalamin (vitamin B-12) 1,000 mcg PO DAILY 02/19/23 03/03/23 History 1,000 mcg tablet (Vitamin B-12) Patient hx anesthesia problems: none Family hx anesthesia problems: none Results Review: All pre-operative results and documents have been reviewed as part of the pre-operative evaluation. [facility]MER[facility], [facility] Past Medical History Medical History (Updated 02/12/23 @ 12:47 by Ino Oshea MD) Anemia Arthritis Atrial fibrillation AVM (arteriovenous malformation) of small bowel, acquired Cerebrovascular accident No significant residual deficits. Chronic anticoagulation Chronic obstructive pulmonary disease Chronic pain lower back Chronic, continuous use of opioids norco Dyslipidemia Hypertension Obstructive sleep apnea CPAP with O2 at 3 LNC Occult blood in stools Paroxysmal atrial fibrillation Tobacco dependence Tuberculosis 1989 Surgical History Surgical History History of fusion of cervical spine History of lumbosacral spine surgery History of right knee joint replacement Family History Family History Sibling Patient's brother is in good health Other Family history of tuberculosis Social History Social History (Updated 07/14/22 @ 00:34 by Azra Kirk PA-C) Social History: Surrogate medical decision maker: Rosemary Benoit, spouse. Code status: Full code. Smoking packs per day: 1.5 Smoking cigarettes per day: 30.0 Years smoked: 47 Smoking pack-years: 70.50 Smoking status: Former smoker Tobacco type: cigarettes Alcohol intake: current Substance use: never Substance use type: does not use Lack of Transportation: YES Lack of Food: Never True Current Housing: I Have Housing Concerned About Future Housing: No Difficulty Paying Gas/Electric Bills: No Difficulty Paying for Meds: No Currently Unemployed: No Education: High School Diploma/GED Difficulty w/ Childcare or Family Care: No Living arrangements: with family Additional living arrangements comments: Lives with spouse in
--- NOTE | 2023-03-03 08:43 | PM.HPGS ---
History of Present Illness History of Present Illness Consent: Risks, benefits, and alternatives have been discussed and questions answered. Patient agrees to proceed with procedure. Chief complaint: Angiodysplasia of colon without hemorrhage Narrative: Fer Benoit is a 72 year old male with anemia and occult blood in stool on xarelto, egd with mild esophagitis, colon polyps then had SBCE that showed small AVM in jejunum, denies overt gib Review of Systems Constitutional: Constitutional: Denies headache(s) and Denies weakness Eyes: Eyes: Denies blurry vision ENT: Reports Normal hearing present, Denies headache(s) and Denies neck pain Cardiovascular: Cardiovascular: Denies chest pain and Denies dyspnea Respiratory: Respiratory: Denies dyspnea Gastrointestinal: Gastrointestinal: Reports no additional gastrointestinal complaints Genitourinary: Genitourinary: Denies dysuria Musculoskeletal: Musculoskeletal: Denies neck pain Integumentary/Breasts: Skin/Breast: Denies dry skin Neurologic: Reports Normal hearing present, Denies headache(s) and Denies weakness Psychiatric: Psychiatric: Denies anxiety Endocrine: Endocrine: Denies change in body appearance Hematologic/Lymphatic: Hematologic/Lymphatic: Denies easy bleeding Allergic/Immunologic: Allergic/Immunologic: Denies urticaria PMFSH Past Medical History Medical History (Updated 02/12/23 @ 12:47 by Ino Oshea MD) Anemia Arthritis Atrial fibrillation AVM (arteriovenous malformation) of small bowel, acquired Cerebrovascular accident No significant residual deficits. Chronic anticoagulation Chronic obstructive pulmonary disease Chronic pain lower back Chronic, continuous use of opioids norco Dyslipidemia Hypertension Obstructive sleep apnea CPAP with O2 at 3 LNC Occult blood in stools Paroxysmal atrial fibrillation Tobacco dependence Tuberculosis 1989 Surgical History Surgical History History of fusion of cervical spine History of lumbosacral spine surgery History of right knee joint replacement Family History Family History Sibling Patient's brother is in good health Other Family history of tuberculosis Social History Social History (Updated 07/14/22 @ 00:34 by Azra Kirk PA-C) Social History: Surrogate medical decision maker: Rosemary Benoit, spouse. Code status: Full code. Smoking packs per day: 1.5 Smoking cigarettes per day: 30.0 Years smoked: 47 Smoking pack-years: 70.50 Smoking status: Former smoker Tobacco type: cigarettes Alcohol intake: current Substance use: never Substance use type: does not use Lack of Transportation: YES Lack of Food: Never True Current Housing: I Have Housing Concerned About Future Housing: No Difficulty Paying Gas/Electric Bills: No Difficulty Paying for Meds: No Currently Unemployed: No Education: High School Diploma/GED Difficulty w/ Childcare or Family Care: No Living arrangements: with family Additional living arrangements comments: Lives with spouse in [place]. 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 Spiritual care concerns: No Meds Home Medications and Allergies Home Medications Medication Instructions Recorded Confirmed Type albuterol sulfate 1.25 mg/3 mL 1.25 mg (3 mL) inhalation Q4H PRN 07/14/22 03/03/23 Rx solution for nebulization shortness of breath or wheezing #90 mL atorvastatin 40 mg tablet 40 mg PO DAILY 07/14/22 03/03/23 History gabapentin 300 mg capsule 300 mg PO DAILY 07/14/22 03/03/23 History hydrocodone 10 mg-acetaminophen 10 - 325 tablet PO QID PRN Pain 07/14/22 03/03/23 History 325 mg tablet (Scale Score 4-6) losartan 25 mg tablet 25 mg PO DAILY 07/14/22 03/03/23 History nebulizer and compressor #1 ea 07/14/22 03/03/23 Rx rivaroxaban 20 mg
[2023-03-03] MEDS: BENZOCAINE (*SP) 60 ML SPRAY CAN (HURRICAINE) 1 SPRAY MUCOUS MEM (08:46)
[2023-03-03 09:02] VITALS: BP 91/54; PULSE 51; RESP 20; O2SAT 95
[2023-03-03 09:12] VITALS: BP 92/56; PULSE 52; RESP 17; O2SAT 94
[2023-03-03 09:22] VITALS: BP 107/59; PULSE 50; RESP 22; O2SAT 94
== END 2023-03-03 09:40 | disposition home or self-care (01) ==
PROVIDERS: PCP Emergency Medicine; Visit Provider Internal Medicine Gastroenterology
PROC: 0DJ08ZZ Inspection of Upper Intestinal Tract, Via Natural or Artificial Opening Endoscopic (ICD-10-PCS; CPT 43235; principal; 2023-03-03 09:30)
DX: D50.9 Iron deficiency anemia, unspecified (principal); R19.5 Other fecal abnormalities; K44.9 Diaphragmatic hernia without obstruction or gangrene; Q27.33 Arteriovenous malformation of digestive system vessel; I10 Essential (primary) hypertension; E78.5 Hyperlipidemia, unspecified; G47.33 Obstructive sleep apnea (adult) (pediatric); I48.0 Paroxysmal atrial fibrillation; J44.9 Chronic obstructive pulmonary disease, unspecified; G89.29 Other chronic pain; M54.50 Low back pain, unspecified; Z79.51 Long term (current) use of inhaled steroids; Z79.01 Long term (current) use of anticoagulants; Z79.891 Long term (current) use of opiate analgesic; Z86.73 Personal history of transient ischemic attack (TIA), and cerebral infarction without residual deficits; Z87.891 Personal history of nicotine dependence
CPT/HCPCS: 43239; 43270; 71046; 88305; J2704; J7120

== ENCOUNTER 2023-03-03 09:58 | Outpatient (CLI) | payer MEDICARE, SELFPAY ==
--- NOTE | ~2023-03-03 | XR_ITS ---
EXAMINATION: XR chest 2V Exam Date/Time: 03/03/2023 10:18 CDT HISTORY: PNEUMONIA Comparison: 07/13/2022, 12/15/2021. RESULT: Lines, tubes, and devices: None. Lungs and pleura: Decreased diffuse reticular opacities. Senescent changes. Biapical and right later al pleural scar/calcification. Stable left mid and right peripheral reticulonodular opacities. No foc al consolidation. Streaky bibasilar scar/atelectasis. Cardiomediastinal silhouette: Stable. Other: No acute osseous or upper abdominal finding. IMPRESSION: No acute cardiopulmonary process. Reviewed, dictated and finalized at location K.
== END 2023-03-03 09:59 | disposition home or self-care (01) ==
PROVIDERS: PCP Emergency Medicine; Visit Provider Emergency Medicine
DX: J18.9 Pneumonia, unspecified organism (principal)
CPT/HCPCS: 71046

== ENCOUNTER 2023-04-23 11:43 | Outpatient (CLI) | payer MEDICARE, SELFPAY ==
--- NOTE | ~2023-04-23 | XR_ITS ---
EXAMINATION: XR sacroiliac joints min 3V DATE: 04/23/2023 12:11 INDICATION: Arthrodesis status. TECHNIQUE: 3 views of the sacrococcygeal joint were obtained. COMPARISON: None. FINDINGS: There are changes of posterior fusion procedure from L4 to S1. No fracture. The sacroiliac joints are normal. IMPRESSION: 1. Normal sacroiliac joints. No evidence of inflammatory arthropathy. Reviewed, dictated and finalized at location E.
--- NOTE | ~2023-04-23 | XR_ITS ---
EXAMINATION: XR hip RT min 2V DATE: 04/23/2023 12:10 INDICATION: Arthrodesis status. Lumbar spondylosis without myelopathy or radiculopathy. TECHNIQUE: 2 views of right hip were obtained. COMPARISON: None. FINDINGS: There is lumbar dextro scoliosis. There are changes of posterior fusion procedure from L4 t o S1. There is decreased right femoral head/neck offset anterolaterally, which may be seen with femor al acetabular impingement. There is mild right hip osteoarthritis. IMPRESSION: 1. Mild right hip osteoarthritis. Reviewed, dictated and finalized at location E.
--- NOTE | ~2023-04-23 | XR_ITS ---
EXAMINATION: XR lumbar spine min 4V DATE: 04/23/2023 12:10 INDICATION: Spondylosis without myelopathy or radiculopathy TECHNIQUE: Anteroposterior and lateral views of the lumbar spine in neutral, flexion, and extension w ere obtained. COMPARISON: 11/27/2022 FINDINGS: There are changes of posterior fusion and laminectomy from L4 through S1. There are 11 degr ees of lumbar curvature. There is severe loss of intervertebral disc space height at L1-2 and L2-3. B one alignment is normal. No fracture is identified. No hypermobility is present with flexion or exten дмитрий. IMPRESSION: 1. Surgical changes and severe upper lumbar spondylosis without acute findings or significant interva l change. No hypermobility identified. Reviewed, dictated and finalized at location F. IMPRESSION: 1. Surgical changes and severe upper lumbar spondylosis without acute findings or significant interval change. No hypermobility identified.
== END 2023-04-23 11:44 | disposition home or self-care (01) ==
PROVIDERS: PCP Emergency Medicine; Visit Provider Neurological Surgery
DX: M47.816 Spondylosis without myelopathy or radiculopathy, lumbar region (principal); Z98.1 Arthrodesis status; M16.11 Unilateral primary osteoarthritis, right hip
CPT/HCPCS: 72110; 72202; 73502

== ENCOUNTER 2023-05-30 07:33 | Outpatient (CLI) | payer MEDICARE, SELFPAY ==
--- NOTE | ~2023-05-30 | MR_ITS ---
MRI of the thoracic spine Clinical History: Back pain Technique: Axial T2-weighted and gradient images, and sagittal T1-weighted, T2-weighted, and STIR rick ges were acquired. Findings: There is no fracture or subluxation of the thoracic spine. Vertebral bodies maintain normal height. No focal, suspicious bone marrow signal abnormality seen. There are degenerative disc narrow ing throughout the thoracic spine, especially the lower half. No significant disc bulge or herniation seen at any thoracic level. No spinal canal stenosis or cord compression evident. There are mild facet joint degenerative changes at the lower thoracic spine. No epidural mass or collection. No abnormal signal seen in the spinal cord. Paravertebral soft tissues are unremarkable. Impression: Mild degenerative spondylosis of the lower thoracic spine. No spinal canal stenosis or cord compressi on. Reviewed, dictated and finalized at [facility]. TER [employer]IGN Impression: Mild degenerative spondylosis of the lower thoracic spine. No spinal canal sten osis or cord compression.
== END 2023-05-30 07:34 | disposition home or self-care (01) ==
PROVIDERS: PCP Emergency Medicine; Visit Provider Nurse Practitioner Family
DX: M51.34 Other intervertebral disc degeneration, thoracic region (principal)
CPT/HCPCS: 72146

== ENCOUNTER 2023-07-02 08:48 | Outpatient (CLI) | payer MEDICARE, SELFPAY ==
--- NOTE | ~2023-07-02 | CT_ITS ---
CT Scan of the Chest without Contrast: Clinical Indication: Lung cancer screening, personal history of nicotine dependence Technique: Contiguous sections were acquired throughout the chest without intravenous contrast. Dose reduction technique was used on this scan by utilizing automated exposure control and iterative recon struction technique. The dose-length product (DLP) was 124.56 mGy-cm. Findings: There is no evidence of any significant mediastinal, hilar or axillary lymphadenopathy. The mediastin al soft tissues appear normal. There is no evidence of pleural or pericardial effusion. There is severe emphysema with biapical scarring. Calcified right upper lobe and left upper lobe gran ulomas are present. Images through the upper abdomen reveal no abnormalities. Impression: Lung RADS 2: Benign appearance. 12 month follow-up screening CT advised. Severe emphysema with biapical scarring. Reviewed, dictated and finalized at [facility]. [employer] WORKER Impression: Lung RADS 2: Benign appearance. 12 month follow-up screening CT advised. Severe emphysema with biapical scarring.
== END 2023-07-02 08:49 | disposition home or self-care (01) ==
LOC: ANHIMG 08:55
PROVIDERS: PCP Emergency Medicine; Visit Provider Emergency Medicine
DX: Z12.2 Encounter for screening for malignant neoplasm of respiratory organs (principal); Z87.891 Personal history of nicotine dependence
CPT/HCPCS: 71271

== ENCOUNTER 2023-10-08 07:41 | Outpatient (CLI) | payer MEDICARE, SELFPAY ==
--- NOTE | 2023-10-08 07:59 | ECG_ITS ---
SEE SCANNED COPY FOR CONFIRMED REPORT MTDD
[2023-10-08 08:28] LABS: Hematocrit 34.5 % (42.0-52.0); Hemoglobin 10.6 g/dL (14.0-18.0); Mean Corpuscular HGB Conc 30.7 g/dl (32-36); Mean Corpuscular Hemoglobin 25.4 pg (26-34); Mean Corpuscular Volume 82.7 fl (80-100); Mean Platelet Volume 8.7 fl (7.4-10.4); Platelet Count Result 391 k/mm3 (150-375); Red Blood Count 4.17 M/mm3 (4.6-6.20); Red Cell Distribution Width 16.3 % (11.5-14.5); White Blood Count 8.4 K/mm3 (4.5-10.0)
[2023-10-08 08:31] LABS: Appearance Urine Clear (Clear); Bilirubin Urine Negative (Negative); Blood Urine Negative (Negative); Color Urine Yellow (Yellow); Glucose Urine UA Negative (Negative); Ketones Urine Trace mg/dL (Negative); Leukocyte Esterase Ur Negative LEU/UL (Negative); Nitrate Urine Negative (Negative); Protein Urine Negative (Negative); Specific Grav Ur 1.027 (1.001-1.035)
[2023-10-08 08:41] LABS: Anion Gap 7 mmol/L (4-12); Blood Urea Nitrogen 15 mg/dL (9-20); Calcium 9.6 mg/dL (8.4-10.2); Carbon Dioxide 25 mmol/L (22-30); Chloride 109 mmol/L (98-107); Estimated Glomerular Filt Rate > 60; Glucose 112 mg/dL (65-110); Partial Thromboplastin Time 29.7 Seconds (22.3-36.8); Potassium 5.2 mmol/L (3.4-5.0); Prothrombin Time 13.8 Seconds (11.1-14.7); Sodium 141 mmol/L (137-145)
[2023-10-08 09:20] LABS: Add Urine Microscopic? NO
== END 2023-10-08 07:42 | disposition home or self-care (01) ==
LOC: ANHSURGERY 07:45
PROVIDERS: PCP Emergency Medicine; Visit Provider Neurological Surgery
DX: E78.00 Pure hypercholesterolemia, unspecified (principal); M96.1 Postlaminectomy syndrome, not elsewhere classified
CPT/HCPCS: 36415; 80048; 81003; 85027; 85610; 85730; 93005

== ENCOUNTER 2023-10-13 00:05 | Day surgery (SDC) | payer MEDICARE, SELFPAY ==
[2023-10-05 11:24] VITALS: BMI 23.7
--- NOTE | 2023-10-05 11:35 | PC.NURSE ---
PRE-OP INSTRUCTIONS, PLEASE READ CAREFULLY Report to the Outpatient Waiting Room, entrance under the green pavilion located off [facility], at time _0600_ on date _10/13/23_. Planned Procedure Time: _0730_. Time changes happen often and if your time is changed the preop area will call you the afternoon before. - You and your visitor will be asked to self-screen and do not enter if you have any COVID symptoms. - A mask is optional within the hospital at this time. Patients may have clear liquids (water, carbonated beverages, clear teas, apple juice) until 3 hours prior to surgery (0430 AM) with a maximum of 20 ounces. - No food from midnight until time of surgery Take the following medications with a SIP of water the morning of surgery: _GABAPENTIN, INHALERS, PAIN PILL__ DO NOT STOP ANY OF YOUR OTHER PRESCRIPTION MEDICATIONS PRIOR TO SURGERY ?EXCEPT THE FOLLOWING Medications to discontinue per DR. UGARTE/DR. HINTON - _XARELTO 5 DAYS PRIOR TO SURGERY, Date to take last dose 10/07/23_ Please no make-up, nail portuguese, hairspray, perfume, deodorant, or body powder the day of surgery. No jewelry (including any body piercings) or valuables the day of surgery, leave them at home. Please take a shower or bath the night before, or the morning of, surgery with an antibacterial soap. Wear comfortable, loose fitting clothing. - Jewelry must be removed prior to entering the operating room. Rings and piercings that are not removed may be cut off. - The hospital will not accept responsibility for valuables. - Please leave all valuables, including medications, at home the day of surgery. If you are going home after surgery, a licensed driver trainer must drive you home. - NO public transportation without another adult if you receive anesthesia. - We recommend that an adult stay with you for 24 hours following discharge. - We also recommend that you do not drive, make important decision, drink alcoholic beverages, or take any drugs that were not prescribed by your health care provider for at least 24 hours after your discharge time. Follow any additional instructions given to you from your surgeon. If you or anyone in your household have experienced Covid symptoms in the past week, please notify your surgeon or the nurse liaison at the phone number below for possible testing. Telephone instructions given to _PATIENT_and asked if any additional questions and then verbalized understanding. Patient advised to call surgeon office or pre surgery nurse liaison [phone] if any additional questions.
[2023-10-13] VITALS (7 sets, daily range): BP systolic 112–135; BP diastolic 58–91; PULSE 55–62; RESP 11–23; TEMP 36.1–36.4; O2SAT 96–100; BMI 22.7
--- NOTE | ~2023-10-13 | XR_ITS ---
EXAMINATION: XR fluoroscopy no charge DATE: 10/13/2023 09:02 INDICATION: T10 laminectomy with placement of a spinal stimulator TECHNIQUE: Single frontal fluoroscopic image of the lower thoracic spine was obtained during procedur e performed by Dr. Lucero. Radiologist was not present for the imaging or procedure. The amount of f luoroscopy time used during this procedure was 0.3 minutes. COMPARISON: 04/23/2023 FINDINGS: T10 laminectomy . Spinal stimulator lead along with expected lucency at the operative bed projecting over the central canal to lower thoracic spine with distal tip of the stimulator at the level of the T8-T9 disc space. IMPRESSION: 1. T10 laminectomy and spinal stimulator lead projecting over the lower thoracic central canal. See p rocedure note for further detail. Reviewed, dictated and finalized at location A. IMPRESSION: 1. T10 laminectomy and spinal stimulator lead projecting over the lower thoraci c central canal. See procedure note for further detail.
[2023-10-13] MEDS: LACTATED RINGERS 1,000 ML 30 ML IV CONT ×2 (06:20→09:24)
--- NOTE | 2023-10-13 07:17 | WPDHPUPDATE1 ---
History and Physical Update Update Date/Time: 10/13/23 07:17 History and Physical has been reviewed, including an updated exam of the patient. There are NO changes in the patient's condition. Risks, benefits, and alternatives have been discussed and questions answered. Patient agrees to proceed with procedure.
--- NOTE | 2023-10-13 07:18 | PM.IMHP ---
H&P: HPI History of Present Illness Date/Time: 10/13/23 07:18 Chief Complaint: back pain Narrative: From 04/15: Mr. Benoit is a 73-year-old male with history of AFib on Xarelto, previous stroke, COPD on home oxygen, and previous lumbar fusion who was referred by Dr. Randall for evaluation of back pain.? The patient had a previous L4-S1 fusion performed at [facility] approximately 8 years ago.? He was doing well for a few years after surgery at which time he started developing recurrent low back pain.? This has gradually worsened over the years to the point that he now has constant debilitating low back pain, particularly on the right side, with radiation to the right hip.? He does not have any radicular pain or paresthesias into the legs.? His pain is worst 1st thing in the morning and when lying down flat.? He has pain throughout the day which he manages with [place] and switching positions frequently.? He currently takes 10 mg hydrocodone 4 times a day.? He had physical therapy last year which was not helpful.? He has not seen Pain Management.? He reportedly saw another female spine surgeon in [place] who did not recommend any kind of surgical intervention for him.? He is here as a 2nd opinion per his request. From 08/31: ? Since his last visit, he had an SI joint injection performed by Dr. Felder without any improvement.? He then had a spinal cord stimulator trial with [facility] from which she got 85-90% improvement in his symptoms.? He is ecstatic with his results from the trial and indicated he was able to do activities that he has not been able to do in years.? He denies any changes in his symptoms since his last visit are any medical issues.? He notes today that he uses 3 L of oxygen on a daily basis, generally at night, but he will still use this on occasion during the day. Review of Systems Review of Systems: All systems reviewed & are unremarkable except as noted in HPI and below PMFSH Past Medical History Medical History Anemia Arthritis Atrial fibrillation AVM (arteriovenous malformation) of small bowel, acquired Cerebrovascular accident No significant residual deficits. Chronic anticoagulation Chronic obstructive pulmonary disease Chronic pain lower back Chronic, continuous use of opioids norco Degenerative joint disease Hyperlipemia Hypertension Obstructive sleep apnea CPAP with O2 at 3 LNC Occult blood in stools Paroxysmal atrial fibrillation Tobacco dependence Tuberculosis 1989 Surgical History Surgical History History of fusion of cervical spine History of lumbosacral spine surgery History of right knee joint replacement Family History Family History Sibling Patient's brother is in good health Other Family history of tuberculosis Social History Social History Social History: Surrogate medical decision maker: Rosemary Benoit, spouse. Code status: Full code. Smoking packs per day: 1.5 Smoking cigarettes per day: 30.0 Years smoked: 47 Smoking pack-years: 70.50 Smoking status: Former smoker Tobacco type: cigarettes Second hand tobacco smoke exposure: No Additional smoking assessment comments: PT UNABLE TO RECALL WHEN QUITTING SMOKING Alcohol intake: former Substance use: never Substance use type: does not use Do You Feel Safe in your Home?: Yes Lack of Transportation: No Lack of Food: Never True Current Housing: I Have Housing Concerned About Future Housing: No Difficulty Paying Gas/Electric Bills: No Difficulty Paying for Meds: No Currently Unemployed: No Education: Associate Degree Difficulty w/ Childcare or Family Care: No Living arrangements: with family Additional living arrangements comments: Lives with spouse in [facility]
--- NOTE | 2023-10-13 07:18 | WPDANESEPPF ---
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 Patient Data Age: 73 Gender: M Height: 1.8 m Weight: 77.27 kg Allergies Allergy/AdvReac Type Severity Reaction Status Date / Time oxycodone Allergy Severe Swelling Verified 10/13/23 06:52 of the Eye Home Medications Medication Instructions Recorded Confirmed Type albuterol sulfate 1.25 mg/3 mL 1.25 mg (3 mL) inhalation Q4H PRN 07/14/22 10/05/23 Rx solution for nebulization shortness of breath or wheezing #90 mL atorvastatin 40 mg tablet 40 mg PO DAILY 07/14/22 10/05/23 History gabapentin 300 mg capsule 300 mg PO DAILY 07/14/22 10/05/23 History hydrocodone 10 mg-acetaminophen 10 - 325 tablet PO QID PRN Pain 07/14/22 10/05/23 History 325 mg tablet (Scale Score 4-6) losartan 25 mg tablet 25 mg PO DAILY 07/14/22 10/05/23 History nebulizer and compressor #1 ea 07/14/22 10/05/23 Rx tadalafil 5 mg tablet 5 mg PO DAILY 07/14/22 10/05/23 History tamsulosin 0.4 mg capsule 0.4 mg PO DAILY 07/14/22 10/05/23 History umeclidinium 62.5 mcg/actuation 1 inh inhalation DAILY 07/17/22 10/05/23 History blister powder for inhalation (Incruse Ellipta) pantoprazole 40 mg tablet,delayed 40 mg PO DAILY #30 tabs 08/25/22 10/05/23 Rx release cyanocobalamin (vitamin B-12) 1,000 mcg PO DAILY 02/19/23 10/05/23 History 1,000 mcg tablet (Vitamin B-12) albuterol sulfate 90 mcg/actuation 2 puff inhalation Q4-6H PRN 04/15/23 10/05/23 History aerosol inhaler (ProAir HFA) Shortness Of Breath fluticasone 250 mcg-salmeterol 50 1 inh inhalation BID 04/15/23 10/05/23 History mcg/dose blistr powdr for inhalation (Advair Diskus) rivaroxaban 20 mg tablet (Xarelto) 20 mg DAILY 10/05/23 10/05/23 History Patient hx anesthesia problems: none Family hx anesthesia problems: none Results Review: All pre-operative results and documents have been reviewed as part of the pre-operative evaluation. [facility] Past Medical History Medical History Anemia Arthritis Atrial fibrillation AVM (arteriovenous malformation) of small bowel, acquired Cerebrovascular accident No significant residual deficits. Chronic anticoagulation Chronic obstructive pulmonary disease Chronic pain lower back Chronic, continuous use of opioids norco Degenerative joint disease Hyperlipemia Hypertension Obstructive sleep apnea CPAP with O2 at 3 LNC Occult blood in stools Paroxysmal atrial fibrillation Tobacco dependence Tuberculosis 1989 Surgical History Surgical History History of fusion of cervical spine History of lumbosacral spine surgery History of right knee joint replacement Family History Family History Sibling Patient's brother is in good health Other Family history of tuberculosis Social History Social History Social History: Surrogate medical decision maker: Rosemary Benoit, spouse. Code status: Full code. Smoking packs per day: 1.5 Smoking cigarettes per day: 30.0 Years smoked: 47 Smoking pack-years: 70.50 Smoking status: Former smoker Tobacco type: cigarettes Second hand tobacco smoke exposure: No Additional smoking assessment comments: PT UNABLE TO RECALL WHEN QUITTING SMOKING Alcohol intake: former Substance use: never Substance use type: does not use Do You Feel Safe in your Home?: Yes Lack of Transportation: No Lack of Food: Never True Current Housing: I Have Housing Concerned About Future Housing: No Difficulty Paying Gas/Electric Bills: No Difficulty Paying for Meds
[2023-10-13] MEDS: ceFAZolin 2 GM/D5W 50 ML 2 GM/50 ML BAG IVPB (07:28)
[2023-10-13] MEDS: BUPIVACAINE/EPINEPHRINE 0.5% 30 ML VIAL INFILTRATE (08:07)
[2023-10-13] MEDS: VANCOMYCIN HCL 1,000 MG VIAL 500 MG TOPICAL (08:08)
--- NOTE | 2023-10-13 09:25 | PM.OP ---
Procedure Note - Brief Procedure Note - Brief Date of procedure: 10/13/23 failed back surgical syndrome Procedure performed: T9, T10 laminotomies for placement of spinal cord stimulator Surgeon: Ivory Lucero MD Lead Portfolio Manager: Jennifer Anesthesia: GETA Findings: Difficulty placing stimulator in midline from T10 laminotomy, so a T9 laminotomy was also performed to break up midline adhesions Estimated blood loss (mL): 25 Drains: No Packing: No Pathology: None sent Complications: None Condition: Stable Disposition: PACU
--- NOTE | 2023-10-13 09:42 | SUR.PHASEI ---
EDI FROM [employer] HERE TO PROGRAMING THE SPINAL CORD STIMULATOR.
[2023-10-13] MEDS: fentaNYL CITRATE INJ (*CRX) 100 MCG/2 ML VIAL 25 MCG IV PUSH ×3 (10:05→10:37)
--- NOTE | 2023-10-13 10:12 | SUR.PHASEI ---
PATIENT INCONTINENT OF LARGE SOFT STOOL; CLEANED UP. DR. HINTON NOTIFIED; NO NEW INTERVENTIONS ORDERED. PATIENT HAS NO DECREASE IN SENSATION/TINGLING IN LEGS/FEET.
--- NOTE | 2023-10-13 15:17 | P.OP_ITS ---
Procedure Note - Detailed Date of Procedure 10/13/23 Pre-op Diagnosis failed back surgical syndrome Post-op Diagnosis Same Procedure Performed 1. T9, T10 laminotomies for placement of spinal cord stimulator 2. Use of C-arm for fluoroscopy Surgeon Ivory Lucero MD Derrick Builder Jennifer Anesthesia General Indications Mr. Benoit is a 73-year-old male with history of AFib on Xarelto, COPD on home oxygen, previous stroke, and previous lumbar fusion who presents with several years of progressive and debilitating low back pain with radiation to the right hip.? He has been determined not to be a candidate for further lumbar surgery. He recently underwent a trial of spinal cord stimulation which resulted in 85- 90% improvement in his symptoms. I therefore offered him surgery in the form of T10 laminotomy for placement of spinal cord stimulator. We discussed risks including bleeding, pain, infection, weakness, paralysis, failure to relieve symptoms, stimulator migration, and anesthetic complications. He gave written informed consent to proceed.? Description of Procedure The patient was brought to the OR where general anesthesia was induced. The patient was turned prone onto the OR table with Addy frame. All pressure points were padded. C-arm was used to plan the level of the thoracic incision. A right gluteal incision was also planned for the generator site. The surgical site was prepped and draped in usual sterile fashion. Perioperative antibiotics were given. Local anesthesia was injected into the planned incisions. A 10-blade scalpel was used to open the right gluteal incision. A bovie was used to create a subcutaneous pocket inferiorly. The pocket was packed with a wet Raytec. Next, the thoracic incision was opened with the scalpel, and the soft tissue was dissected with the bovie. The laminae were exposed bilaterally at T10. This was confirmed with the C-arm. A was performed at the superior portion of T10 with the [place], high-speed drill, and kerrisons. The laminotomy opening was widened laterally, and the Woodsen was passed into the epidural space to ensure adequate opening. The paddle stimulator was then placed into the epidural space. The placement was noted to be to the right of midline. A second pass yielded the same result. Therefore, a second laminotomy was performed at the inferior aspect of T9. There was an adhesion present at this level which was with a Woodsen and 3 penfield.? The stimulator paddle was then repassed through the inferior opening at T10 with eventual midline placement spanning the T8 and T9 bodies. Anchors were placed into the leads which were attached to the interspinous ligament. The leads were tunneled to the gluteal incision. A final xray was obtained to ensure stable placement. The leads were connected to the generator which was then placed into the gluteal pocket. The generator was secured with a silk suture. All incisions were irrigated copiously. Hemostasis was ensured in the thoracic incision with the bipolar and Surgiflo. Stimulon beads were placed into both incisions. The fascia was closed with 0 vicryl. The dermis was closed with 2-0 and 3-0 vicryl. The dermis at the generator site was closed with 2-0 vicryl. The skin was closed in both incisions with 4-0 monocryl. Dermabond was then placed. The patient was returned supine, extubated, and transferred to PACU. Billing codes: 17269, [id number] Drains No Packing No Pathology None sent Complications None Condition Stable Disposition PACU [facility] Billing Surgery - Charge Forward: Surgery Billing
== END 2023-10-13 11:24 | disposition home or self-care (01) ==
PROVIDERS: PCP Emergency Medicine; Visit Provider Neurological Surgery
PROC: (CPT 63005; principal; 2023-10-13 07:30)
DX: M96.1 Postlaminectomy syndrome, not elsewhere classified (principal); J44.9 Chronic obstructive pulmonary disease, unspecified; I10 Essential (primary) hypertension; E78.5 Hyperlipidemia, unspecified; I48.0 Paroxysmal atrial fibrillation; G47.33 Obstructive sleep apnea (adult) (pediatric); Z79.891 Long term (current) use of opiate analgesic; Z79.51 Long term (current) use of inhaled steroids; Z79.01 Long term (current) use of anticoagulants; Z98.1 Arthrodesis status; Z87.891 Personal history of nicotine dependence
CPT/HCPCS: 63685; 63655; 99199; A9270; J0330; J0690; J1100; J2405; J2704; J3010; J3370; J7120

== ENCOUNTER 2024-08-04 08:49 | Outpatient (CLI) | payer MEDICARE, SELFPAY ==
--- NOTE | ~2024-08-04 | CT_ITS ---
EXAMINATION: CTA brain DATE: 08/04/2024 09:33 INDICATION: Headache. TECHNIQUE: Computed tomographic angiography (CTA) of the head was performed without and with 100 mL O mnipaque-350 intravenous contrast. Automated exposure control and iterative reconstruction technique were employed. The dose-length product was 1073.70 mGy-cm. Maximum intensity projection 3D reconstru ctions were created. Volume-rendered 3D reconstructions of the intracranial arteries were created by the technologist on a separate workstation. COMPARISON: None. 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 There are scattered areas of low attenuation in the cerebral white matter, which is within norm al limits for the patient's age. There is no intracranial hemorrhage, acute infarction, or abnormal i ntracranial mass lesion. The ventricles are normal in size. There are likely changes of right ocular lens replacement surgery. There is mild mucosal thickening in the paranasal sinuses. There is an expa nsile opacified mucocele in right frontal lobe. There is a right mastoid effusion. Right vertebral ar david is dominant. There is no significant stenosis of basilar artery or the posterior cerebral arteri es. There is no significant stenosis of the intracranial internal carotid arteries or anterior or mid dle cerebral arteries. Anterior communicating artery is normal. There is no aneurysm. The posterior c ommunicating arteries are normal. IMPRESSION: 1. 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 2. No aneurysm or significant intracranial arterial stenosis. Reviewed, dictated and finalized at location A. 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
--- OUTSIDE RECORDS SUMMARY | 2024-08-04 09:09 | XMS_ITS | Clinical Summary ---
Author Organization [facility] Address [address] [place] [address] Care Team Providers Care Disulfurizer Tender Name Role Phone Unavailable Primary Care Provider Unavailabl e Social History Tobacco Use Types Packs/Day Years Used Date Smoking Tobacco: Never Assessed Sex and Gender Information Value Date Recorded Sex Assigned at Not on file Legal Sex Male 6:28 PM CDT Gender Identity Not on file Sexual Orientation Not on file Plan of Treatment Health Maintenance Due Date Last Done Comments Colorectal Cancer Screening Colonoscopy (10 Years) 1952 Hepatitis C 1970 DTaP, Tdap and Td Vaccines ( 1 - Tdap) 1971 Zoster Vaccines (1 of 2) 2002 Pneumococcal Vaccine: 65+ Ye ars (1 of 1 - PCV) 2017 COVID-19 Vaccine ( - 2023-2 5 season) 2024 Influenza Adult (#1) 2024 RSV Immunization or 60+ Years (1 - 1-dose 75+ series) 2027 Meningococcal B Vaccine Aged Out No l onger eligible based on patient's age to complete this topic Meningococcal Vaccine Aged Out No arthur aj eligible based on patient's age to complete this topic RSV Immunizations Under 20 Months Aged Out No longer eligible based on patient's age to complete this topic
--- OUTSIDE RECORDS SUMMARY | 2024-08-04 09:09 | XMS_ITS | Clinical Summary ---
Author Organization [facility] [employer] Address [address] [place] [address] Care Team Providers Care Chief Yeoman Name Role Phone João Randall MD Primary Care Provider [phone] Source Comments [facility],non-[facility] Affiliates and Associated Physician Practices is amultiple site organization consisting of ambulatory clinics and hospital sitesin [place], [place], [place] and [place]. This disclosure is being madepursuant to the Care Everywhere program and may not contain all information available regarding this patient. Last updated 18.[facility] [employer] Allergies Active Allergy Reactions Criticality Noted Date Comments Oxycodone Urticaria Medium 08/27/2008 Oxytocin Rash Medium 08/08/2018 Ketorolac Tromethamine Rash Medium 07/15/2010 Medications * Be aware that medications may not be up to date on this document. Alwaysverify current medications with the patient. Medication Sig Dispensed Refills Start Date End Date Status cyclobenzaprine (FLEXERIL) 10 MG tablet Take 1 tablet by mouth 12/02/2020 Active gabapentin (NEURONTIN) 300 MG capsule Take 300 mg by mouth at bedtime 01/28/2021 Active HYDROcodone-acetaminop hen (LORCET HD) 10-325 MG tablet 12/26/2020 Active lovastatin (MEVACOR) 40 MG tablet Take 1 tablet by mouth every 24 hours 12/26/2020 Active meloxicam (MOBIC) 15 MG tablet Take 15 mg by mouth once daily as needed 02/07/2021 Active tamsulosin (FLOMAX) 0.4 MG capsule Take 0.4 mg by mouth once daily 12/02/2020 Active INCRUSE ELLIPTA 62.5 MCG/INH inhaler INHALE 1 PUFF BY MOUTH AT THE SAME TIME EVERY DAY 02/25/2021 Active albuterol HFA (PROVENTIL;VENTOLIN;MN OAIR) 108 (90 Base) MCG/ACT inhaler INL 2 PFS PO Q 4 TO 6 H PRN 03/08/2020 Active Active Problems Problem Noted Date Diagnosed Date Bacteremia 06/06/2021 Pain in joint, lower leg 06/06/2021 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 06/06/2021 History of lumbar fusion 02/27/2021 Congenital spondylolisthesis 02/27/2021 Tobacco user 02/27/2021 Lymphocytosis 02/08/2020 Thrombocythemia 02/08/2020 B12 deficiency 01/01/2018 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 02/21/2015 Personal history of nicotine dependence 02/22/20 15 Other emphysema 11/23/2013 Low back pain 11/23/2013 Generalized osteoarthritis 10/26/2013 Hyperlipidemia 10/26/2013 Vitamin D deficiency 10/26/2013 Resolved Problems Problem Noted Date Diagnosed Date Resolved Date Pneumonia 06/06/2021 07/04/2021 Social History Tobacco Use Types Packs/Day Years Used Date Smoking Tobacco: Never Smokeless Tobacco: Never Alcohol Use Standard Drinks/Week Comments Never 0 (1 standard drink = 0.6 oz pur e alcohol) Sex and Gender Information Value Date Recorded Sex Assigned at Not on file Gender Identity Not on file Sexual Orientation Not on file Last Filed Vital Signs Vital Sign Reading Time Taken Comments Blood Pressure 145/82 04/10/2021 8:50 AM CDT Pulse 89 04/10/2021 8:50 AM CDT Temperature 36.2 C (97.1 F) 04/10/2021 8:50 AM CDT Respiratory Rate 20 04/10/2021 8:50 AM CDT Oxygen Saturation 94% 02/27/2021 8:18 AM CDT Inhaled Oxygen Concentration - - Weight 78 kg (172 lb) 04/10/2021 8:50 AM CDT Height 180.3 cm (5' 11 ) 04/10/2021 8:50 AM CDT Body Mass Index 23.99 04/10/2021 8:50 AM CDT Plan of Treatment Health Maintenance Due Date Last Done Comments COLOGUARD (AGES 45-75) - COLON CA SCREENING 1950 COLON MONITORING 1952 COLONOSCOPY - COLON CA SCREENING 1952 CT COLONOGRAPHY - COLON CA SCREENING 1950 Colorectal Cancer Screening 1950 FIT - COLON CA SCREENING 1950 FLEX SIG - COLON CA SCREENING 1952 HEPATITIS C SCREENING 06/12/1970 DTAP/TDAP/TD VACCINES (1 - Tdap) 1971 PNEUMOCOCCAL VACCINE 50+ (1 of 2 - PCV) 1971 ZOSTER VACCINE (1 of 2) 2002 Respiratory Syncytial Virus (RSV) Vaccine Pt: or over 60 yrs (1 - Risk 60-74 years 1-dose series) 2012 COVID-19 VACCINE ( - 2023- season) 2024 INFLUENZA VACCINE (#1) 2024 , 03/20/2019, 03/05/2010, Additional history exists DEPRESSION SCREENING 06/28/2024 MEDICARE AWV CALENDAR YEAR 2024 HEPATITIS B VACCINE Aged Out No longe r eligible based on patient's age to complete this topic HIB VACCINE Aged Out No longer eligi ble based on patient's age to complete this topic HPV VACCINE Aged Out No longer eligi ble based on patient's age to complete this topic MENINGOCOCCAL (Group B) VACCINE Aged Out No longer eligible based on patient's age to complete this topic MENINGOCOCCAL VACCINE Aged Out No arthur aj eligible based on patient's age to complete this topic Care Teams Chief Yeoman Relationship Specialty Start Date End Date João Randall MD PCP - General 01/15/21
--- OUTSIDE RECORDS SUMMARY | 2024-08-04 09:09 | XMS_ITS | Referral Summary ---
Author Organization [facility] Address [address] [place] [address] Care Team Providers Care Chainer Name Role Phone João Randall MD Primary Care Provider [phone] Source Comments [facility],non-[facility] Affiliates and Associated Physician Practices is amultiple site organization consisting of ambulatory clinics and hospital sitesin [place], [place], [place] and [place]. This disclosure is being madepursuant to the Care Everywhere program and may not contain all information available regarding this patient. Last updated 18.[facility] [employer] Allergies Active Allergy Reactions Criticality Noted Date [...] TIME EVERY DAY 02/25/2021 Active albuterol HFA (PROVENTIL;VENTOLIN;MS OAIR) 108 (90 Base) MCG/ACT inhaler INL [...] disease 02/21/2015 Atherosclerotic heart diseas e of [place] coronary artery without angina pectoris 02/21/2015 Personal [...] 04/10/2021 8:50 AM CDT Plan of Treatment Not on file Care Teams Chainer Relationship Specialty Start Date End Date João Randall MD PCP - General 01/15/21
--- OUTSIDE RECORDS SUMMARY | 2024-08-04 09:09 | XMS_ITS | Continuity of Care Document ---
Author Name [facility] Organization [facility] Care Team Providers Care Executive Consultant Name Role Phone [facility] Unavailable Unavailable Problems Combined list of problems from [facility] and [facility] facilities. It does not include entries that were removed or entered in error. Problem Status Onset Date Problem Type Date of Resolution Comments Source Bacteremia * (ICD-9-CM 790.7) Active Condition [facility] Chronic low back pain (SNOMED CT 488886251) Active Condition [facility] Knee pain (SNOMED CT 54898835) Active Condition [facility] Lumbosacral spondylosis without myelopathy (ICD-9-CM 721.3) Active Condition [facility] Nicotine Dependence (ICD-9-CM 305.1) Active Condition [facility] Pneumonia, organism unspecified Active Condition [facility] Pulmonary Emphysema Active Condition [facility] Spondylolisthesis * (ICD-9-CM 756.12) Active Condition [facility] Medications Combined list of outpatient medications from [facility] facilities.Medications provided include 1) outpatient medications from the last 15 months, and 2) patient-reported medications. Medication Details Route Status Patient Instructions Prescription Expires Prescription Number Last Dispense Date Ordering Provider Order Date Order Qty Source ALBUTEROL SO4 90MCG/ACTUA T (CFC-F) INHL,ORAL,8 .5GM INHALE 2 PUFFS BY ORAL INHALATI ON FOUR TIMES A DAY NEEDED RESPIR ATORY (INHAL ATION) ACTIVE ETHAN SCHUMACHER TTA 2012 [facility] Allergies, Adverse Reactions, Alerts Combined list of allergies from [facility] and [facility] facilities. It does not include entries that were removed or entered in error. Substance Category Reaction Severity Reaction type Status Date Reported Comments Source OXYCODONE Propensity to adverse reactions to drug (finding) Urticaria active 9 [facility] TORADOL INJECTION Propensity to adverse reactions to drug (finding) Eruption active 1 [facility] ULTRAVIST 150 MGI/ML Propensity to adverse reactions to drug (finding) Urticaria, Xerostomia , Nasal mucosa dry MODERATE active 1 [facility] Immunizations Combined list of available immunizations from the Department of [facility] and [facility] facilities. Immunization Series Date Given Administered By Site Reaction Lot Number CVX Code Drug Undraped Artist Model Status Comments Source INFLUENZA, UNSPECIFIED FORMULATION 2009 88 complet ed [facility] TDAP 2008 115 complet ed Left Deltoid [facility] PNEUMOCOCCAL, UNSPECIFIED FORMULATION 2008 109 complet ed [facility] INFLUENZA, UNSPECIFIED FORMULATION 2007 88 complet ed [facility] PNEUMOCOCCAL, UNSPECIFIED FORMULATION 2006 109 complet ed [facility] TDAP 2006 115 complet ed [facility] Encounters Combined list of: 1) Encounters from [facility] facilities going backup to the last 18 months, not all [place] inpatient encounters are included; 2) Encounters from the Department of [facility] facilities going backup to 280 months. Location Location Details Encounter Type Encounter Number Reason For Visit Attending Provider ADM Date DC Date Status Disposition Source [facility] Outpatient Encounter [id number] 2 03/15 [facility] Social History Combined list of available smoking, tobacco, and other social history from [facility] and [facility] facilities. Social History Type Response Date Comment Sourc e Tobacco smoking status NHIS CURRENT TOBACCO USER 10/17/2012 [facility] Jacey Manuel [facility] History of tobacco use TOBACCO MEDS OFFE RED BUT DECLINED 10/17/2012 [facility] History of tobacco use CURRENT TOBACCO USER 04/08/2010 [facility] History of tobacco use CURRENT TOBACCO USER 04/22/2009 [facility] History of tobacco use QUIT TOBACCO IN T HE LAST 12 MONTHS 01/18/2009 [facility] History of tobacco use TOBACCO OFFERED S [facility] 10/19/2008 [facility] History of tobacco use CURRENT TOBACCO USER 09/21/2008 [facility] Advance Directives List of completed, amended, or rescinded Advance Directives on record at Department of [facility] facilities. An actual copy of the Directive is not included. 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
--- OUTSIDE RECORDS SUMMARY | 2024-08-04 09:09 | XMS_ITS | CONTINUITY OF CARE DOCUMENT ---
Author Name donald, donald Address Unknown Organization [facility] Address [address] [place] [address] Phone [phone] Care Team Providers Care Senior Field Service Engineer Name Role Phone Emerson WALKER, Serjio Unavailable [phone] LISA WALKER, FELIPE Unavailable [phone] FELIPE GONZALEZ MD Unavailable [phone] PROBLEMS Condition Status Date Provider Notes Aortic atherosclerosis active Serjio Norman MD Vitamin D deficiency active Serjio Spann B12 deficiency active Serjio Norman MD IRON DEFICIENCY active Serjio Norman MD covid 19;2020;HAD VACCINE active Serijo bliss MD Thrombocytosis completed - Serjio Norman MD PREDIABETES; active Serjio Norman MD CVA;carotid plaquing by cta active Serjio Norman MD Atrial fibrillation, paroxysmal;nml tsh active Serjio Norman MD Hyperlipidemia;with high crp and low lpa active Serjio Norman MD Screening active Serjio Norman MD Tobacco use, quit active Serjio Norman MD t oo rmeto to screen COPD active Serjio Norman MD CAD;neg duplex active Serjio Norman MD Granulomatous lung disease active Serjio mccurdy MD ENCOUNTERS Date Type Provider Location Encounter Diag nosis - In-person encounter Office Visit Serjio Norman MD [place] [facility] [facility] Tobacco use, quitHyperlipidemia;with high crp and low lpaIRON DEFICIENCY - In-person encounter Office Visit Serjio Norman MD [place] [facility] [facility] - In-person encounter Office Visit Serjio Norman MD [place] [facility] [facility] Thrombocytosis - In-person encounter Office Visit Serjio Norman MD [facility] Atrial fibrillation, paroxysmal;nml tshCVA;carotid plaquing by ctaPREDIABETES;covid 19;2020;HAD VACCINE - In-person encounter Office Visit Serjio Norman MD [place] [facility] Atrial fibrillation, paroxysmal;nml tshCVA;carotid plaquing by cta - In-person encounter Office Visit Serjio Norman MD [facility] - In-person encounter Office Visit Serjio Norman MD [facility] Granulomatous lung diseaseCOPDScreeningHype rlipidemia;with high crp and low lpa - In-person encounter Office Visit Serjio Norman MD [place] [facility] CAD;neg duplex - In-person encounter Office Visit Serjio Norman MD [facility] Granulomatous lung diseaseCAD;neg duplexCOPDTobacco use, quit VITAL SIGNS Date Observation Value Provider Body Mass Index (Ratio) 22.87 kg/m2 Kenya Norman MD blood pressure, diastolic 68 mm[Hg] Rachel Davis blood pressure, systolic 117 mm[Hg] Ivelisse Davis oxygen saturation, oximetry 96 % Ilene Davis pulse rate 73 /min Ilene Davis respiratory rate E&M 12 /min Ilene Davis weight E&M 164 [lb_av] Ilene Davis height E&M 71 [in_i] Ilene Davis blood pressure, cuff size regular [facility] Body Mass Index (Ratio) 24.82 kg/m2 Kenya Norman MD blood pressure, diastolic 68 mm[Hg] [place] blood pressure, systolic 134 mm[Hg] Ivelisse segura [place] oxygen saturation, oximetry 96 % [facility] pulse rate 48 /min [facility] respiratory rate E&M 12 /min [facility] weight E&M 178 [lb_av] [facility] height E&M 71 [in_i] [facility] blood pressure, cuff size regular Rachel [facility]Lar[facility] Body Mass Index (Ratio) 23.99 kg/m2 Kenya Norman MD blood pressure, cuff size regular [facility] blood pressure, diastolic 68 mm[Hg] [facility] blood pressure, systolic 120 mm[Hg] [facility] pulse rate 62 /min [facility] oxygen saturation, oximetry 95 % [facility] respiratory rate E&M 12 /min Corky weight E&M 172 [lb_av] Corky height E&M 71 [in_i] Corky Body Mass Index (Ratio) 25.94 kg/m2 Kenya Norman MD blood pressure, cuff size large Ke rri Isaiueadwoakeo blood pressure, diastolic 60 mm[Hg] [facility] blood pressure, systolic 116 mm[Hg] Jareth Iverson oxygen saturation, oximetry 95 % Kathy Iverson respiratory rate E&M 16 /min Kathy richardser pulse rate 86 /min Kathy Isaiuenenfe er weight E&M 186 [lb_av] Kathy Gruenenfe [facility] height E&M 71 [in_i] Kathy Isaiuenenfe [facility] Body Mass Index (Ratio) 25.10 kg/m2 Kenya Norman MD blood pressure, cuff size large Tr [facility] blood pressure, diastolic 60 mm[Hg] Tr [facility] blood pressure, systolic 110 mm[Hg] Try [facility] oxygen saturation, oximetry 97 % [facility] respiratory rate E&M 18 /min [facility] pulse rate 63 /min [facility] weight E&M 180 [lb_av] [facility] height E&M 71 [in_i] [facility] Body Mass Index (Ratio) 25.66 kg/m2 Kenya Norman MD blood pressure, lehman tolic, second observation 66 mm[Hg] Serjio Norman MD blood pressure, syst olic, second observation 128 mm[Hg] Serjio Norman MD blood pressure, cuff size regular Ke rri Kishor blood pressure, diastolic 76 mm[Hg] Ke rri Kishor blood pressure, systolic 122 mm[Hg] Jareth ri Kishor oxygen saturation, oximetry 97 % Kathy Kishor respiratory rate E&M 18 /min Kathy G tisha pulse rate 71 /min Kathy Isaiuenenfe gladyser weight E&M 184 [lb_av] Kathy Isaiuenejeff graham height E&M 71 [in_i] Kathy Alexandrea delgado blood pressure, diastolic 60 mm[Hg] Morris Rivera blood pressure, systolic 110 mm[Hg] Lucia valladares Miguel Body Mass Index (Ratio) 25.38 kg/m2 Kenya Norman MD oxygen saturation, oximetry 98 % Chastity Joe pulse rate 83 /min Chastity Joe blood pressure, diastolic 56 mm[Hg] Ch astity Joe blood pressure, systolic 112 mm[Hg] Lucero stity Joe respiratory rate E&M 16 /min Chastit y Joe weight E&M 182 [lb_av] Chastity Joe height E&M 71 [in_i] Chastity Joe blood pressure, diastolic 60 mm[Hg] Ke rri Kishor blood pressure, systolic 100 mm[Hg] Jareth ri Kishor pulse rate 61 /min Kathy Alexandrea er oxygen saturation, oximetry 97 % Kathy Kishor respiratory rate E&M 16 /min Kathy Ritesh tisha Body Mass Index (Ratio) 24.82 kg/m2 Robb juliann Kishor weight E&M 178 [lb_av] Kathy Alexandrea grahamer blood pressure, diastolic 84 mm[Hg] Ta yoni Neri blood pressure, systolic 136 mm[Hg] Moya ica Neri Body Mass Index (Ratio) 24.54 kg/m2 Jodi jessica He pulse rate 59 /min Cathie He oxygen saturation, oximetry 97 % Cathie He respiratory rate E&M 18 /min Cathie He weight E&M 176 [lb_av] Cathie He height E&M 71 [in_i] Cathie He ALLERGIES Allergy Name Onset Date Reaction Criticality Status OXYCOTIN Low Criticality active OXYCODONE Low Criticality active RESULTS Date Observation Value Provider Reference Range Interpretation Location 9 hemoglobin A1C, blood, as % of total hemoglobin 6.3 % OF TOTAL HGB [facility] <5.7 High 9 thyroid stimulating hormone, serum 0.71 u[IU]/mL [facility] 0.40-4.50 Normal 9 thyroxine, serum, free 1.2 ng/dL [facility] 0.8-1.8 Normal 9 B-type natriuretic peptide 95 pg/mL [facility] <100 Normal 9 triiodothyronine (T3), serum 121 ng/dL [facility] 76-181 Normal 9 C-reactive protein, serum 0.64 mg/dL [facility] Units converted. See lab report for original value. Normal 9 calcium, serum 9.1 mg/dL [facility] 8.6-10.3 Normal 9 carbon dioxide, venous blood 24 mmol/L [facility] 20-32 Normal 9 chloride, serum 105 mmol/L [facility] 98-110 Normal 9 potassium, serum 4.8 mmol/L [facility] 3.5-5.3 Normal 9 sodium, serum 137 mmol/L [facility] 135-146 Normal 9 urea nitrogen/creatinine ratio, serum SEE NOTE: (calc) [facility] 6-22 9 creatinine, serum 0.85 mg/dL [facility] 0.70-1.28 Normal 9 urea nitrogen, blood 14 mg/dL [facility] 7-25 Normal 9 blood glucose, random 92 mg/dL [facility] 65-99 Normal 9 microalbumin/creatin ine ratio, urine 2 MG/G CREAT [facility] <30 Normal 9 microalbumin/total urine volume 2 mg/L [facility] Units converted. See lab report for original value. Normal 9 creatinine, random, urine 88 mg/dL [facility] 20-320 Normal 9 cholesterol, non-HDL, total 80 MG/DL (CALC) [facility] <130 Normal 9 cholesterol/HDL ratio, serum, percent 2.6 (calc) [facility] <5.0 Normal 9 LDL cholesterol, serum 65 MG/DL (CALC) [facility] Normal 9 triglyceride, serum, fasting 69 mg/dL [facility] <150 Normal 9 HDL cholesterol, serum 50 mg/dL [facility] > OR = 40 Normal 9 cholesterol, serum 130 mg/dL [facility] <200 Normal 1 basophils as percent of blood leukocytes 0 % [facility] Normal 1 eosinophils as percent of blood leukocytes 2 % [facility] Normal 1 monocyte count, blood 8 % [facility] Normal 1 lymphocyte count, blood 30 % [facility] Normal 1 myelocyte count, blood 1 % [facility] High 1 neutrophils, band form as percent of blood leukocytes 1 % [facility] Normal 1 neutrophils as percent of blood leukocytes 58 % [facility] Normal 1 basophils, absolute, manual 0 cells/mcL [facility] 0-200 Normal 1 eosinophils, absolute, manual 148 cells/mcL [facility] 15-500 Normal 1 monocytes, absolute, manual 592 cells/mcL [facility] 200-950 Normal 1 lymphocytes, absolute 2220 CELLS/UL [facility] 850-3900 Normal 1 Absolute Myelocyte count 74 cells/mcL [facility] 0 High 1 Absolute Band Neutrophil count 74 cells/mcL [facility] 0-750 Normal 1 Absolute Neutrophil count 4292 cells/mcL [facility] 1940-3413 Normal 1 mean platelet volume 10.4 fL [facility] 7.5-12.5 Normal 1 platelet count 377 THOUSAND/ UL [facility] 140-400 Normal 1 red blood cell distribution width * % [facility] 11.0-15.0 1 mean corpuscular hemoglobin concentration, RBC 31.7 G/DL [facility] 32.0-36.0 Low 1 mean corpuscular hemoglobin, RBC 27.2 pg [facility] 27.0-33.0 Normal 1 mean corpuscular volume, RBC 85.8 fL [facility] 80.0-100.0 Normal 1 hematocrit, blood 40.4 % [facility] 38.5-50.0 Normal 1 hemoglobin electrophoresis, blood 12.8 [facility] 13.2-17.1 Low 1 erythrocyte (RBC) count 4.71 MILLION/U L [facility] 4.20-5.80 Normal 1 leukocyte (white blood cells) count, blood 7.4 THOUSAND/ UL [facility] 3.8-10.8 Normal 7 B-12, serum 261 pg/mL [facility] 232-1245 7 c-reactive protein, quantitative, serum 5.85 mg/L [facility] 0.00-3.00 High 7 lipoprotein, beta, serum, point, quantitative, calculated 78 mg/dL [facility] 0-99 7 very low density lipoproteins 52 mg/dL [facility] 5-40 High 7 HDL cholesterol, serum 33 mg/dL [facility] >39 Low 7 triglyceride, serum, random 258 mg/dL [facility] 0-149 High 7 cholesterol, serum 163 mg/dL [facility] 915-591 3947/07/0 7 alanine aminotransferase (SGPT), serum 11 1/L [facility] 0-44 7 aspartate aminotransferase (SGOT), serum 17 1/L [facility] 0-40 7 alkaline phosphatase, serum 88 1/L [facility] 39-117 7 bilirubin, serum, total 0.2 mg/dL [facility] 0.0-1.2 7 albumin/globulin ratio, serum 1.4 [facility] 1.2-2.2 7 globulin, serum 3.1 [facility] 1.5-4.5 7 albumin, serum 4.2 g/dL [facility] 3.6-4.8 7 protein, total, serum 7.3 g/dL [facility] 6.0-8.5 7 calcium, serum 9.6 mg/dL [facility] 8.6-10.2 7 carbon dioxide, venous blood 24 mmol/L [facility] 20-29 7 chloride, serum 104 mmol/L [facility] 96-106 7 potassium, serum 4.9 mmol/L [facility] 3.5-5.2 7 sodium, serum 144 mmol/L [facility] 472-179 7123/07/0 7 urea nitrogen/creatinine ratio, serum 16 [facility] 10-24 7 eGFR if 101 mL/min/{1 .73_m2} [facility] >59 7 eGFR if not 87 mL/min/{1 .73_m2} [facility] >59 7 creatinine, serum 0.92 mg/dL [facility] 0.76-1.27 7 urea nitrogen, blood 15 mg/dL [facility] 8-27 7 blood glucose, random 62 mg/dL [facility] 65-99 Low HISTORY OF MEDICATION USE Medication Status Instructions Dates Provider Indications Com ments metformin (Glucophage XR) 500 mg tablet extended release 24 hr active TAKE 1 TABLET BY MOUTH ONCE DAILY IN THE MORNING Serjio Norman MD Multaq 400 mg tablet active Take 1 tablet by mouth twice a day Serjio Norman MD ferrous sulfate 325 mg (65 mg iron) tablet,delayed release (DR/EC) active TAKE 1 TABLET BY MOUTH TWICE DAILY Serjio Norman MD ergocalciferol (vitamin D2) 1,250 mcg (50,000 unit) capsule active TAKE 1 CAPSULE BY MOUTH 1 TIME A WEEK Serjio Norman MD cyanocobalamin (vitamin B-12) 1,000 mcg tablet active TAKE 1 TABLET BY MOUTH DAILY Serjio Norman MD tadalafil 5 mg tablet completed TAKE 1 TABLET BY MOUTH ONCE DAILY - Serjio Norman MD atorvastatin 40 mg tablet active TAKE 1 TABLET BY MOUTH EVERY DAY Serjio Norman MD losartan 25 mg tablet active TAKE 1 TABLET BY MOUTH EVERY DAY Serjio Norman MD hydrocodone-aceta minophen 10-325 mg tablet active TAKE 1 TABLET BY MOUTH FOUR TIMES DAILY NEEDED Serjio Norman MD pantoprazole 40 mg tablet,delayed release (DR/EC) completed TAKE 1 TABLET BY MOUTH EVERY DAY - Serjio Norman MD pantoprazole 40 mg tablet,delayed release (DR/EC) active TAKE 1 TABLET BY MOUTH EVERY DAY Serjio Norman MD albuterol sulfate 90 mcg/actuation HFA aerosol inhaler active INHALE 1 PUFF BY MOUTH EVERY 4 TO 6 HOURS NEEDED FOR SHORTNESS OF BREATH Serjio Norman MD Incruse Ellipta 62.5 mcg/actuation blister with device completed INHALE 1 PUFF BY MOUTH AT THE SAME TIME EVERY DAY - Serjio Norman MD gabapentin 300 mg capsule active Tonya Del Valle NP tamsulosin 0.4 mg capsule active TAKE 1 CAPSULE BY MOUTH DAILY Tonya Del Valle NP Xarelto 20 mg tablet active Tonya Del Valle NP clopidogrel 75 mg tablet completed - Tonya Del Valle NP Lipitor 40 mg tablet completed 1 tablet by mouth once a day - Serjio Norman MD ZETIA 10 MG ORAL TABLET completed ONE TAB. DAILY - Kathy Iverson cholecalciferol (vitamin D3) 1,250 mcg (50,000 unit) capsule completed 1 capsule by mouth once a week - Tonya Del Valle NP Vitamin B-12 1,000 mcg tablet completed 1 tablet by mouth once a day - Serjio Norman MD aspirin 81 mg tablet,delayed release (DR/EC) completed 1 tablet by mouth once a day - Serjio Norman MD hydrocodone-aceta minophen 7.5-325 mg tablet completed Take 1 tablet by mouth twice a day as needed - Marianela Diaz #60, 30 days supply, Prescribed by FELIPE GONZALEZ, Filled 11/27/2017 cyclobenzaprine 10 mg tablet completed tablet by mouth as needed - Serjio Norman MD #60, 30 days supply, Prescribed by FELIPE GONZALEZ, Filled 11/27/2017 ASPIRIN ADULT LOW DOSE 81 MG ORAL TABLET DELAYED RELEASE completed One Tab By Mouth Daily - Chastity Joe meloxicam 15 mg tablet completed Take 1 by mouth once a day as needed - Serjio Norman MD LOVASTATIN 20 MG ORAL TABLET completed ONE A DAY - Serjio Norman MD ASPIRIN 81 MG ORAL TABLET completed ONE TAB. DAILY - Kathy Iverson ROJAS MULTIVITAMIN FOR MEN ORAL TABLET completed 1 tab daily - Lucerostthuy Diaz Symbicort 160-4.5 mcg/actuation HFA aerosol inhaler completed as directed - Tonya Del Valle NP ProAir HFA 90 mcg/actuation HFA aerosol inhaler completed as directed - Serjio Norman MD FAMOTIDINE 20 MG ORAL TABLET completed 1 tab daily - Kathy Iverson METHOCARBAMOL 750 MG ORAL TABLET completed 1 tab every 4 hrs as needed - Kathy Iverson SOCIAL HISTORY Date Observation Value Provider alcohol use no Serjio Spann smoking, year quit 2014 Serjio mccurdy MD smoking history, tot al pack/day 2.5pk Serjio Norman MD cigarette use yes Serjio Norman MD smoking status Former smoker Serjio flores MD alcohol use no Serjio Spann smoking, year quit 2014 Serjio mccurdy MD smoking history, tot al pack/day 2.5pk Serjio Norman MD cigarette use yes Serjio Norman MD smoking status Former smoker Serjio flores MD social history E&M Smoking Histo ry: P atient is a former smoker. Serjio Norman MD social history reviewed E&M revi ewed - no changes required Serjio Norman MD quit smoking, stage quit Serjio rocha MD social history E&M S moking History: Broderick russell is a former smoker. Serjio Norman MD social history reviewed E&M revi ewed - no changes required Serjio Norman MD smoking, year quit 2014 Kathy French enenfelder smoking history, tot al pack/day 2.5pk [facility] use yes Kathy Rocha elder smoking status Former smoker Kathy Mccullough nfelder cigarette use yes Trynett Edward s smoking status Former smoker Trynett Edwa rds social history E&M S moking History: Broderick russell is a former smoker. Serjio Norman MD social history reviewed E&M revi ewed - no changes required Serjio Norman MD alcohol use no Kathy Lechuga er smoking, year quit 2014 Kathy French enderrickfeld smoking history, tot al pack/day 2.5pk [facility] use yes Kathy Rocha elder smoking status Former smoker Kathy Mccullough nfelder smoking status Former smoker Mary Alice Aleks maki social history E&M S moking History: Broderick russell is a former smoker. Serjio Norman MD social history reviewed E&M revi ewed - no changes required Serjio Norman MD alcohol use no Chastity Joe smoking, year quit 2014 Chastity Joe smoking history, tot al pack/day 2.5pk Chastity Joe cigarette use yes Chastity Joe smoking status Former smoker Chastity Hog ue social history E&M S moking History: Broderick russell is a former smoker. Serjio Norman MD social history reviewed E&M revi ewed - no changes required Serjio Norman MD alcohol use no Kathy Lechuga lder smoking status Former smoker Kathy Mccullough nfelder smoking/tobacco cess ation, patient education and counseling yes Serjio Norman MD quit smoking, stage quit Serjio rocha MD social history reviewed E&M revi ewed - no changes required Serjio Norman MD smoking history, tot al pack/day 2.5pk Cathie Neri smoking, year quit 2014 Cathie Jayme tucker cigarette use yes Cathie He smoking status Former smoker Cathie almanzar FUNCTIONAL STATUS Date Observation Value Provider HRA, CV Assess/Plan, Angina (inactive) Management Plan continue current therapy Serjio Norman MD HRA, CV Assess/Plan, Angina (inactive) Management Plan continue current therapy Serjio Norman MD HRA, CV Assess/Plan, Angina (inactive) Management Plan continue current therapy Serjio Norman MD HRA, CV Assess/Plan, Angina (inactive) Management Plan continue current therapy Serjio Norman MD HRA, CV Assess/Plan, Angina (inactive) Management Plan continue current therapy Tonya Del Valle NP HRA, CV Assess/Plan, Angina (inactive) Management Plan continue current therapy Serjio Norman MD HRA, CV Assess/Plan, Angina (inactive) Management Plan continue current therapy Serjio Norman MD HRA, CV Assess/Plan, Angina (inactive) Management Plan continue current therapy Serjio Norman MD FAMILY HISTORY Family Member Condition Father [place] male <55 INSURANCE PROVIDERS Payer name Policy type / Coverage type Novi red constitution party ID [facility] [id number] ADVANCE DIRECTIVES Name Date DISCUSSED - NO DECISION MADE TREATMENT PLAN Date Name Performer [id number],S, T he patient is between 55-77 years old and has smoked at least 30 pack years. The patient is either a current smoker or has quit within the past 15 years. T he patient is recommended to have low dose CT scan for lung cancer screening. Has been counseled regarding the importance of tobacco cessation and abstinence. Shared decision making during this office visit included discussion of the benefits and harms of screening, possible future recommendations of follow-up diagnostic testing, and total amount of radiation exposure. The patient was recommended to have annual low dose CT scan for lung cancer screening and is willing to undergo diagnosis and treatment. Serjio Norman MD [id number],S, Serjio flores MD [id number],S, Serjio Norman MD [id number],S, 1 07/2020 with mild L sided residual Serjio Norman MD [id number],S, S EEN ON CT, BUT NUC NEGATIVE, TREAD MILL NEG EXCEPF FOR PVCS Serjio Norman MD [id number],S, Serjio flores MD [id number],S, 5 .7 Serjio Norman MD [id number],S, n o pe by ct e ng effr Serjio Norman MD [id number],S, Serjio flores MD [id number],S,not on last h otlere Serjio Norman MD [id number],S, m ild mr and tr Serjio Norman MD [id number],S, Serjio Norman MD [id number],S, Serjio flores MD [id number],C,mild mr and t r Serjio Norman MD [id number],S, Serjio flores MD [id number],S, Serjio flores MD [id number],S, Serjio flores MD [id number],C, H is updated medication list for this problem includes: Lipitor 40 Mg Tablet (Atorvastatin) ..... 1 tablet by mouth once a day C HOL: 163 (01/01/2018) HDL: 33 (01/01/2018) Serjio Norman MD [id number],S, Serjio flores MD [id number],S, S EEN ON CT, BUT NUC NEGATIVE, TREAD MILL NEG EXCEPF FOR PVCS Serjio Norman MD [id number],S,mild tr and m r Serjio Norman MD [id number],S,s ays getting ct eleswerhe Serjio Norman MD [id number],S, Serjio flores MD [id number],S, n o pe by ct e ng effr Serjio Norman MD [id number],S,5.7 Serjio mccurdy MD [id number],C,low dose CT. Tonya Del Valle NP [id number],C,will check PF Ts Tonya Del Valle NP [id number],C,o n statin. 05/2021: chol 140, LDL 81, HDL 32, trigs 136 Tonya Del Valle NP [id number],C,will check la bs Tonya Del Valle NP [id number],C,will check la bs Tonya Del Valle NP [id number],C,T he patient is between 55-77 years old and has smoked at least 30 pack years. The patient is either a current smoker or has quit within the past 15 years. T he patient is recommended to have low dose CT scan for lung cancer screening. Has been counseled regarding the importance of tobacco cessation and abstinence. Shared decision making during this office visit included discussion of the benefits and harms of screening, possible future recommendations of follow-up diagnostic testing, and total amount of radiation exposure. The patient was recommended to have annual low dose CT scan for lung cancer screening and is willing to undergo diagnosis and treatment. Tonya Del Valle NP [id number],C,05/2021 with mild L sided residual Toyna Ivon CARR [id number],C,o n xarelto. 30 day monitor from [facility] being sent to [facility] (1 week remains) w ill arrange telesentry monitor next year. Tonya Del Valle NP Cardiology:cannot afford colaon Serjio Norman MD Cardiology Serjio Norman MD Cardiology Serjio Norman MD Cardiology: H is updated medication list for this problem includes: Atorvastatin 40 Mg Tablet (Atorvastatin) ..... Take 1 tablet by mouth every day Serjio Norman MD Cardiology: S EEN ON CT PET 24 AND OLD NUC NEGATIVE Serjio Norman MD Cardiology: n eg pro and echo, neg egfr and uacr and ct pe Serjio Norman MD Cardiology:seeb on miniitor plus vt vs abbeance Serjio Norman MD Cardiology Serjio Norman MD Cardiology: 1 07/2020 with mild L sided residual Serjio Norman MD Cardiology: 6 .3 Serjio Norman MD Cardiology Serjio Norman MD Cardiology Serjio Norman MD :neg pro and echo, neg egfr and uacr and ct pe Serjio Norman MD :SEEN ON CT PET 24 AND OLD NUC N EGATIVE Serjio Norman MD :neg egfr and uacr and ct pe Eitan Norman MD :nml pro Serjio Norman MD :6.3 Serjio Norman MD Cardiology: S EEN ON CT, BUT NUC NEGATIVE, TREAD MILL NEG EXCEPF FOR PVCS Serjio Norman MD Cardiology Serjio Norman MD Cardiology Serjio Norman MD Cardiology Serjio Norman MD Cardiology:15years Serjio Norman MD Cardiology:not on today ekg Kenya Norman MD Cardiology Serjio Norman MD Cardiology: 1 07/2020 with mild L sided residual Serjio Norman MD Cardiology: 5 .7 Serjio Norman MD Cardiology: m ild mr and tr Serjio Norman MD Cardiology Serjio Norman MD Cardiology: n o pe by ct e ng effr Serjio Norman MD Cardiology: T he patient is between 55-77 years old and has smoked at least 30 pack years. The patient is either a current smoker or has quit within the past 15 years. T he patient is recommended to have low dose CT scan for lung cancer screening. Has been counseled regarding the importance of tobacco cessation and abstinence. Shared decision making during this office visit included discussion of the benefits and harms of screening, possible future recommendations of follow-up diagnostic testing, and total amount of radiation exposure. The patient was recommended to have annual low dose CT scan for lung cancer screening and is willing to undergo diagnosis and treatment. Serjio Norman MD Cardiology Serjio Norman MD Cardiology Serjio Norman MD Cardiology: 1 07/2020 with mild L sided residual Serjio Norman MD Cardiology: S EEN ON CT, BUT NUC NEGATIVE, TREAD MILL NEG EXCEPF FOR PVCS Serjio Norman MD Cardiology Serjio Norman MD Cardiology: 5 .7 Serjio Norman MD Cardiology: n o pe by ct e ng effr Serjio Norman MD Cardiology Serjio Norman MD Cardiology:not on last hotlere H jo Norman MD Cardiology: m ild mr and tr Serjio Norman MD Cardiology Serjio Norman MD Cardiology Serjio Norman MD hemoglobin was 8.6 with his DLCO today.:mild mr and tr Serjio Norman MD Cardiology Serjio Norman MD Cardiology Serjio Norman MD Cardiology Serjio Norman MD Cardiology: H is updated medication list for this problem includes: Lipitor 40 Mg Tablet (Atorvastatin) ..... 1 tablet by mouth once a day C HOL: 163 (01/01/2018) HDL: 33 (01/01/2018) Serjio Norman MD Cardiology Serjio Norman MD Cardiology: S EEN ON CT, BUT NUC NEGATIVE, TREAD MILL NEG EXCEPF FOR PVCS Serjio Norman MD Cardiology:mild tr and mr Serjio Norman MD Cardiology:says gett ing ct eleswerhe Serjio Norman MD Cardiology Serjio Norman MD Cardiology: n o pe by ct e ng effr Serjio Norman MD Cardiology:5.7 Serjio Norman MD Cardiology:low dose CT. Tonya Del Valle NP Cardiology:will check PFTs Eden Del Valle NP Cardiology:on statin . 05/2021: chol 140, LDL 81, HDL 32, trigs 136 Tonya Del Valle NP Cardiology:will check labs Eden Del Valle NP Cardiology:will check labs Eden Del Valle NP Cardiology:The patie nt is between 55-77 years old and has smoked at least 30 pack years. The patient is either a current smoker or has quit within the past 15 years. T he patient is recommended to have low dose CT scan for lung cancer screening. Has been counseled regarding the importance of tobacco cessation and abstinence. Shared decision making during this office visit included discussion of the benefits and harms of screening, possible future recommendations of follow-up diagnostic testing, and total amount of radiation exposure. The patient was recommended to have annual low dose CT scan for lung cancer screening and is willing to undergo diagnosis and treatment. Tonya Del Valle NP Cardiology:05/2021 with mild L s ided residual Tonya Del Valle NP Cardiology:on xarelt o. 30 day monitor from [facility] info being sent to [facility] (1 week remains) w ill arrange telesentry monitor next year. Tonya Del Valle NP Cardiology Follow up Serjio mcdonald MD Cardiology Follow up Serjio mcdonald MD Cardiology Follow up Serjio mcdonald MD Cardiology Follow up : n o pe by ct Serjio Norman MD Cardiology Follow up Serjio mcdonald MD Cardiology Follow up :CHOL: 163 (01/01/2018) HDL: 33 (01/01/2018) T he following medications were removed from the medication list: Zetia 10 Mg Oral Tablet (Ezetimibe) ..... One tab. daily Lovastatin 20 Mg Oral Tablet (Lovastatin) ..... One a day N EES STRONGER, NEVER GOT ZETIA H is updated medication list for this problem includes: Lipitor 40 Mg Oral Tablet (Atorvastatin calcium) ..... One tab. daily Serjio Norman MD Cardiology Follow up :The patient is between 55-77 years old and has smoked at least 30 pack years. The patient is either a current smoker or has quit within the past 15 years. T he patient is recommended to have low dose CT scan for lung cancer screening. Has been counseled regarding the importance of tobacco cessation and abstinence. Shared decision making during this office visit included discussion of the benefits and harms of screening, possible future recommendations of follow-up diagnostic testing, and total amount of radiation exposure. The patient was recommended to have annual low dose CT scan for lung cancer screening and is willing to undergo diagnosis and treatment. Serjio Norman MD Cardiology Follow up : S EEN ON CT, BUT NUC NEGATIVE, TREAD MILL NEG EXCEPF FOR PVCS Serjio Norman MD Cardiology Serjio Norman MD Cardiology Serjio Norman MD Cardiology:no pe by ct Serjio mccurdy MD Cardiology: S EEN ON CT, BUT NUC NEGATIVE, djue for strs Serjio Norman MD Cardiology:The patie nt is between 55-77 years old and has smoked at least 30 pack years. The patient is either a current smoker or has quit within the past 15 years. T he patient is recommended to have low dose CT scan for lung cancer screening. Has been counseled regarding the importance of tobacco cessation and abstinence. Shared decision making during this office visit included discussion of the benefits and harms of screening, possible future recommendations of follow-up diagnostic testing, and total amount of radiation exposure. The patient was recommended to have annual low dose CT scan for lung cancer screening and is willing to undergo diagnosis and treatment. Serjio Norman MD Cardiology Follow up : S EEN ON CT, BUT NUC NEGATIVE, Serjio Norman MD Cardiology,hfu:SEEN ON CT, BUT NUC NEGATIVE,WILL START STATIN AND ASPERIN Serjio Norman MD Cardiology,hfu:NO PE BY CT, HAS GRANULOMATOUS LUNG DZ, FU WITH MARSHA Norman MD Date Name Monitor - Telemetry (Mobile Cardiac) myocardial blood viktoriya w (PET) Stress Cardiac PET-C T Complete Echo CT, Coronary Calcium Score BASIC METABOLIC PANE L W/EGFR PROBNP, N TERMINAL CRP, high sensitivit y Microalb/Creatinine Urine, Random HEMOGLOBIN A1c LIPID PANEL Lipoprotein (a) Vitamin D, 25-Hydrox y Monitor - Telemetry (Mobile Cardiac) TSH, free T4, total T3 CT, Coronary Calcium Score Microalb/Creatinine Urine, Random VITAMIN B12 Vitamin D, 25-Hydrox y Lipoprotein (a) LIPID PANEL HEMOGLOBIN A1c CRP, high sensitivit y TSH, free T4, total T3 PROBNP, N TERMINAL Holter Monitor 24 Hr DLCO - 33362 FRC - 92901 FVC - 33900 CBC (INCLUDES DIFF/P LT) PROBNP, N TERMINAL CBC (INCLUDES DIFF/P LT) TSH, free T4, total T3 HEMOGLOBIN A1c CRP, high sensitivit y LIPID PANEL Microalb/Creatinine Urine, Random CT, Coronary Calcium Score Complete Echo Vitamin D, 25-Hydrox y VITAMIN B12 DLCO - 81256 FRC - 29167 FVC - 35763 Holter Monitor 24 Hr Holter Monitor 24 Hr VITAMIN B12 Vitamin D, 25-Hydrox y Low Dose Lung CT DLCO - 49694 FRC - 25692 FVC - [address], Coronary Calcium Score DLCO - 91778 FRC - 28705 FVC - 12429 STR - Routine DLCO - 58254 FRC - 26898 FVC - 48033 CT, Coronary Calcium Score Low Dose Lung CT COMPREHENSIVE METABO LIC PANEL, W/EGFR LIPID PANEL C-REACTIVE PROTEIN VITAMIN B12 Vitamin D, 25-Hydrox y VITAMIN D, 25-HYDROX Y, LC/MS/MS VITAMIN B12 C-REACTIVE PROTEIN LIPID PANEL COMPREHENSIVE METABO LIC PANEL W/EGFR Complete Echo Carotid Duplex Bilat eral HISTORY OF PROCEDURES Procedure Date Procedure Name Provider Procedure Notes S tatus Complex e/m visit add on Srejio Norman MD completed EKG Serjio Norman MD [06/23/2024 - lisa] APPROVED [ 06/15/2024 - enrique] completed Spirometry Serjio Norman MD complete d FVC / MVV with bronchodilator - 45231 Serjio Norman MD completed BLOOD COUNT HEMOGLOBIN Serjio Norman MD completed FRC - 20611 Serjio Norman MD complet ed SpO2 w/o 6min walk/titration Serjio Norman MD completed SVC - 19693 Serjio Norman MD complet ed DLCO - 35373 Serjio Norman MD comple gilma EKG Serjio Norman MD complete d Counseling LDCT Serjio Norman MD com pleted EKG Serjio Norman MD complete d Counseling LDCT Serjio Norman MD may com pleted Stress EKG Joseph almanzar MD completed Counseling LDCT Serjio Norman MD com pleted EKG Serjio Norman MD complete d SNOMED-CT: [id number] Current Medications Documented Serjio Norman MD completed
--- OUTSIDE RECORDS SUMMARY | 2024-08-04 09:09 | XMS_ITS | Patient Health Summary ---
Author Organization [facility] Address [address] [place] [address] Care Team Providers Care [employer] Name Role Phone João Randall MD Primary Care Provider [phone] [facility],non-owned Affiliates and Associated Physician Practices is amultiple site organization consisting of ambulatory clinics and hospital sitesin [place] and [place]. This disclosure is being madepursuant to the Care Everywhere program and may not contain all information available regarding this patient. Last updated 18.[facility] Allergies * Oxycodone(Urticaria) -Medium Criticality * Oxytocin(Rash) -Medium Criticality * Ketorolac Tromethamine(Rash) -Medium Criticality Medications * Be aware that medications may not be up to date on this document. Alwaysverify current medications with the patient. * cyclobenzaprine (FLEXERIL) 10 MG tablet(Started 12/02/2020) Take 1 tablet by mouth * gabapentin (NEURONTIN) 300 MG capsule(Started 01/28/2021) Take 300 mg by mouth at bedtime * HYDROcodone-acetaminophen (LORCET HD) 10-325 MG tablet(Started 12/26/2020) * lovastatin (MEVACOR) 40 MG tablet(Started 12/26/2020) Take 1 tablet by mouth every 24 hours * meloxicam (MOBIC) 15 MG tablet(Started 02/07/2021) Take 15 mg by mouth once daily as needed * tamsulosin (FLOMAX) 0.4 MG capsule(Started 12/02/2020) Take 0.4 mg by mouth once daily * INCRUSE ELLIPTA 62.5 MCG/INH inhaler(Started 02/25/2021) INHALE 1 PUFF BY MOUTH AT THE SAME TIME EVERY DAY * albuterol HFA (PROVENTIL;VENTOLIN;PROAIR) 108 (90 Base) MCG/ACT inhaler (Started 03/08/2020) INL 2 PFS PO Q 4 TO 6 H PRN Active Problems Problem Noted Date Diagnosed Date Bacteremia 06/06/2021 Pain in joint, lower leg 06/06/2021 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 06/06/2021 History of lumbar fusion 02/27/2021 Congenital spondylolisthesis 02/27/2021 Tobacco user 02/27/2021 Lymphocytosis 02/08/2020 Thrombocythemia 02/08/2020 B12 deficiency 01/01/2018 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 Personal [...] Mass Index 23.99 04/10/2021 8:50 AM CDT Procedures * CT LUMBAR SPINE WO CONTRAST(Performed 04/10/2021) Performed for Low back pain, unspecified back pain laterality, unspecified chronicity, unspecified whether sciatica present, Lumbar radiculopathy * XR LUMBAR SPINE 4VW OR MORE(Performed 04/10/2021) Performed for Low back pain, unspecified back pain laterality, unspecified chronicity, unspecified whether sciatica present, Lumbar radiculopathy * XR SKULL TO ANKLE RIOS(Performed 04/10/2021) Performed for Low back pain, unspecified back pain laterality, unspecified chronicity, unspecified whether sciatica present, Lumbar radiculopathy Results * CT LUMBAR SPINE WO CONTRAST (04/10/2021 8:18 AM CDT) Anatomical Region Laterality Modality Spine Computed Tomogra phy 04/10/2021 10:2 7 AM CDT Impressions 04/10/2021 11:19 AM CDT IMPRESSION: 1. The postsurgical changes are discussed above are uncomplicated. 2. The thecal sac is well decompressed at L4-L5 and L5-S1 after bilateral L5 laminectomy. 3. Moderate bilateral neural foraminal stenosis at L2-L3 is evident. Impingement on exiting right L2 nerve in the foramen is possible. This report was electronically signed by SHAWN NO on 04/10/2021 11:19 AM . Narrative 04/10/2021 11:19 AM CDT EXAMINATION: CT OF THE LUMBAR SPINE WITHOUT CONTRAST HISTORY: M54.50: Low back pain, unspecified back pain laterality, unspecified chronicity, unspecified whether sciatica present; M54.16: Lumbar radiculopathy COMPARISON: None. CORRELATION: Lumbar spine radiographs with flexion and extension dated 04/10/2021. TECHNIQUE: CT of the lumbar spine was performed without contrast according to standard protocol. FINDINGS: Lordosis of lumbar spine is minimally reduced. There is a mild convex dextroscoliosis of thoracolumbar spine centered at L1-L2. 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 The patient is status post bilateral laminectomy of L5 with resection of the spinous process as well as posterior spinal fusion using paired transpedicular screws and vertical rods at the L4, L5 and S1 levels. No fracture, loosening or backing of the screws is identified. Vertebral bodies are normal in height without evidence of compression fractures. Severe degenerative disc disease is seen at all levels excluding L3-L4 which appears normal. There is almost complete obliteration of the disc spaces at L4-L5 and L5-S1. Vacuum phenomenon is seen at L1-L2 and L2-L3 levels. Schmorl's nodes and subchondral cystic changes are present at L1-L2 and L2-L3 levels. No soft tissue abnormality is identified. T11-T12, T12-L1 and L1-L2: There is no posterior disc abnormality, central canal stenosis or neural foraminal stenosis. There is mild bilateral facet osteoarthritis. L2-L3: There is mild circumferential disc bulging and mild hypertrophy of ligamentum flavum associated with moderate bilateral lateral recess stenosis. Fat is visible in the dorsal epidural space. There is mild bilateral facet osteoarthritis. Moderate bilateral neural foraminal stenosis is evident and impingement on bilateral exiting L2 nerves in the neural foramina is possible especially on the right side. L3-L4: There is mild symmetric hypertrophy of ligamentum flavum and [id number] bilateral facet osteoarthritis. No significant posterior disc abnormality, central canal stenosis, significant lateral recess stenosis or neural foraminal stenosis is identified. L4-L5: There is no posterior disc abnormality, central canal stenosis, lateral recess stenosis or neural foraminal stenosis. Moderate to severe degenerative changes of the facets are present with almost osseous fusion of the facets. L5-S1: The thecal sac and lateral recesses orbital decompressive laminectomy. There is moderate to severe bilateral neural foraminal stenosis. No visible impingement on bilateral exiting L5 nerves in the neural foramina is identified. There is symmetric minimal osteoarthritis of bilateral sacroiliac joints with vacuum phenomenon, but without significant joint space narrowing or osteophytosis. Procedure Note Shawn No MD - 04/10/2021 EXAMINATION: CT OF THE LUMBAR SPINE WITHOUT CONTRAST HISTORY: M54.50: Low back pain, unspecified back pain laterality, unspecified chronicity, unspecified whether sciatica present; M54.16: Lumbar radiculopathy COMPARISON: None. CORRELATION: Lumbar spine radiographs with flexion and extension dated 04/10/2021. TECHNIQUE: CT of the lumbar spine was performed without contrastaccording to standard protocol. FINDINGS: Lordosis of lumbar spine is minimally reduced. There is a mild convex dextroscoliosis of thoracolumbar spine centered at L1-L2. 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 The patient is status post bilateral laminectomy of L5 with resection of the spinous process as well as posterior spinal fusion using paired transpedicular screws and vertical rods at the L4, L5 and S1 levels. No fracture, loosening or backing ofthe screws is identified. Vertebral bodies are normal in height without evidence of compression fractures. Severe degenerative disc disease is seen at all levels excluding L3-L4 which appears normal. There is almost complete obliteration of the disc spaces at L4-L5 and L5-S1. Vacuum phenomenon is seen at L1-L2 and L2-L3 levels. Schmorl's nodes and subchondral cystic changes are present at L1-L2 and L2-L3 levels. No soft tissueabnormality is identified. T11-T12, T12-L1 and L1-L2: There is no posterior disc abnormality,central canal stenosis or neural foraminal stenosis. There is mild bilateralfacet osteoarthritis. L2-L3: There is mild circumferential disc bulging and mild hypertrophyof ligamentum flavum associated with moderate bilateral lateral recess stenosis. Fat is visible in the dorsal epidural space. There is mild bilateral facet osteoarthritis. Moderate bilateral neural foraminal stenosis is evident and impingement on bilateral exiting L2 nerves inthe neural foramina is possible especially on the right side. L3-L4: There is mild symmetric hypertrophy of ligamentum flavum and [id number] bilateral facet osteoarthritis. No significantposterior disc abnormality, central canal stenosis, significant lateral recess stenosis or neural foraminal stenosis is identified. L4-L5: There is no posterior disc abnormality, central canal stenosis, lateral recess stenosis or neural foraminal stenosis. Moderate to severe degenerative changes of the facets are present with almost osseousfusion of the facets. L5-S1: The thecal sac and lateral recesses orbital decompressive laminectomy. There is moderate to severe bilateral neural foraminal stenosis. No visible impingement on bilateral exiting L5 nerves in the neural foramina is identified. There is symmetric minimal osteoarthritis of bilateral sacroiliac joints with vacuum phenomenon, but without significant joint space narrowing or osteophytosis. IMPRESSION: 1. The postsurgical changes are discussed above are uncomplicated. 2. The thecal sac is well decompressed at L4-L5 and L5-S1 afterbilateral L5 laminectomy. 3. Moderate bilateral neural foraminal stenosis at L2-L3 is evident. Impingement on exiting right L2 nerve in the foramen is possible. This report was electronically signed by SHAWN NO on 111:19 AM . Cathryn Aquino MD CT ORDERABLES * XR SKULL TO ANKLE RIOS (04/10/2021 8:06 AM CDT) Anatomical Region Laterality Modality Radiographic Isabel ging 04/10/2021 8:08 AM CDT Impressions 04/10/2021 8:18 AM CDT IMPRESSION: 1.Dextroscoliosis. 2.Other measurements as above. Dictated by Ynes Ng DO (radiology clerk). IDr. CHARLES MD, [facility] have personally reviewed and interpreted this examination/study. This report was electronically signed by CHARLES CABRERA MD, [facility] on 04/10/2021 8:18 AM . Narrative 04/10/2021 8:18 AM CDT EXAMINATION: XR SKULL TO ANKLE RIOS HISTORY: M54.50: Low back pain, unspecified back pain laterality, unspecified chronicity, unspecified whether sciatica present M54.16: Lumbar radiculopathy COMPARISON: No prior study is available for comparison. FINDINGS: There has been instrumented posterior spinal fusion from L4 to S1 with posterior rods and screws. Hardware appears intact. There are multilevel degenerative changes in the imaged spine. There is dextroscoliosis with a Prieto angle of 14 degrees. There is no coronal imbalance. There is 7.3 cm of positive sagittal balance. The right iliac crest is 1.2 cm superior to the left iliac crest. There has been a right total knee arthroplasty. The visualized skull is unremarkable. Procedure Note Charles Cabrera MD - 04/10/2021 EXAMINATION: XR SKULL TO ANKLE RIOS HISTORY: M54.50: Low back pain, unspecified back pain laterality, unspecified chronicity, unspecified whether sciatica present M54.16: Lumbar radiculopathy COMPARISON: No prior study is available for comparison. FINDINGS: There has been instrumented posterior spinal fusion from L4 to S1 with posterior rods and screws. Hardware appears intact. There are multilevel degenerative changes in the imaged spine. There is dextroscoliosis witha Prieto angle of 14 degrees. There is no coronal imbalance. There is 7.3 cm of positive sagittal balance. The right iliac crest is 1.2 cm superior to the left iliaccrest. There has been a right total knee arthroplasty. The visualized skull is unremarkable. IMPRESSION: 1.Dextroscoliosis. 2.Other measurements as above. Dictated by Ynes Ng DO (radiology clerk). IDr. CHARLES MD, [facility] have personally reviewedand interpreted this examination/study. This report was electronically signed by CHARLES CABRERA MD, [facility] on 04/10/2021 8:18 AM . Cathryn Aquino MD DIAGNOSTIC IMAGING O RDERABLES * XR LUMBAR SPINE 4VW OR MORE (04/10/2021 8:06 AM CDT) Anatomical Region Laterality Modality Spine Radiographic Isabel ging 04/10/2021 2:04 PM CDT Impressions 04/11/2021 3:20 PM CDT IMPRESSION: 1. Posterior segment spinal fusion at L4-S1. 2. Scoliosis and moderate to severe degenerative changes. Dictated by Marek Hill MD, PhD (radiology clerk). Dr. ECTOR Felton MD have personally reviewed and interpreted this examination/study. This report was electronically signed by ECTOR CURRAN MD on 04/11/2021 3:20 PM . Narrative 04/11/2021 3:20 PM CDT EXAM: XR LUMBAR SPINE 4VW HISTORY: M54.50: Low back pain, unspecified back pain laterality, unspecified chronicity, unspecified whether sciatica present M54.16: Lumbar radiculopathy. S/p L4-S1 fusion. COMPARISON: CT lumbar spine 04/10/2021. FINDINGS: Posterior instrumented spinal fusion with rods and screws at L4-S1. Grade 1 anterolisthesis at L4-5. Mild right lateral and retrolisthesis at L2-3. Moderate to severe multilevel degenerative changes. Lumbar scoliosis. No acute fracture. No changed in alignment with flexion or extension. Atherosclerotic calcification. Procedure Note Ector Curran MD - 04/11/2021 EXAM: XR LUMBAR SPINE 4VW HISTORY: M54.50: Low back pain, unspecified back pain laterality, unspecified chronicity, unspecified whether sciatica present M54.16: Lumbar radiculopathy. S/p L4-S1 fusion. COMPARISON: CT lumbar spine 04/10/2021. FINDINGS: Posterior instrumented spinal fusion with rods and screws at L4-S1.Grade 1 anterolisthesis at L4-5. Mild right lateral and retrolisthesis atL2-3. Moderate to severe multilevel degenerative changes. Lumbar scoliosis. No acute fracture. No changed in alignment with flexion or extension. Atherosclerotic calcification. IMPRESSION: 1. Posterior segment spinal fusion at L4-S1. 2. Scoliosis and moderate to severe degenerative changes. Dictated by Marek Hill MD, PhD (radiology clerk). I, Dr. ECTOR CURRAN MD have personally reviewed and interpreted this examination/study. This report was electronically signed by ECTOR CURRAN MD on 04/11/2021 3:20 PM . Cathryn Aquino MD DIAGNOSTIC IMAGING O RDERABLES Care Teams [employer] Relationship Specialty Start Date End Date João Randall MD PCP - General 01/15/21
--- OUTSIDE RECORDS SUMMARY | 2024-08-04 09:09 | XMS_ITS | Data Portability ---
Author Organization [place] [facility] [employer], Main Office Address [address] [place] [address] Care Team Providers Care Department Director Name Role Phone FELIPE GONZALEZ Primary Care Provider Assessment No assessment recorded. Plan of Treatment Reminders Order Date Submit Date Provider Last Modified By Organization Details Last Modified Time Details Appointments None recorded. Lab None recorded. Referral None recorded. Procedures None recorded. Surgeries None recorded. Imaging audiogram + tympanogram 2023 024 [facility], [address] [place] [address] Ct, Alexis C, [place], [address], 4 04:32:57 Medication Orders None recorded. Patient TargetsNo targets recorded. Patient Instructions Encounter Date Encounter Id Patient Instructions Last Modified By Organization Details Last Modified Time 03/23/2024 [id number] Patient will obtain an audiogram and tympanogram for bilateral hearing loss. We will follow-up with patient when results are available from testing. [email or web address] Not available 03/23/2024 10:20:15 Reason for Referral None Reported. Problems Name Problem SNOMED Code Status Onset Date Resolution Date Notes Provider Name and Address Organization Details Recorded Time Chronic obstructive pulmonary disease 82179564 Active Not Available [facility] 3 05:53:04 Pneumonia 539936527 Active Not Available [facility] 3 05:53:04 Osteoarthriti s of knee 851032245 Active Not Available [facility] 3 05:53:04 Left upper zone pneumonia 612293987 Active Not Available [facility] 3 05:53:04 Right upper zone pneumonia 243964238 Active Not Available [facility] 3 05:53:04 Moderate chronic obstructive pulmonary disease 403215268 Active Not Available [facility] 3 05:53:04 Severe chronic obstructive pulmonary disease 341380478 Active Not Available [facility] 3 05:53:04 Osteoarthriti s 158652782 Active Not Available [facility] 3 05:53:04 Periodic limb movement disorder 986947095 Active Not Available [facility] 3 05:53:04 Allergic rhinitis 41940461 Active Not Available [facility] 3 05:53:05 Obstructive sleep apnea syndrome 21031569 Active Not Available [facility] 3 05:53:05 Fatigue 76492481 Active Not Available [facility] 3 05:53:05 Sensorineural hearing loss 35483860 Active 2023 Carrie White RN [facility], [facility] 4 09:32:06 Sensorineural hearing loss of bilateral ears 492397902 Active 2023 ANJU Vazquez [address] [place] [address], [phone] , [facility] 4 10:19:31 Notes:Some problems listed i n Document: #[id number] could not be added to this patient's chart. Please review this document and add these problems to the patient's chart manually as needed. Problem Notes None recorded. Medical Equipment None Reported. Allergies Allergen ID Allergen Name Allergen Category Reaction Reaction Severity Criticality Documentation Date Start Date Code Code System Note Provider Name and Address Organization Details Recorded Time 9816 Oxycontin medicatio n hives Not available Not available 08/26/2022 92547 6 RxNorm Not Available [facility]ending [facility] 3 05:56:40 9817 oxycodone medicatio n hives Not available Not available 08/26/2022 7804 RxNorm Not Available Pending [facility] to [facility] 3 05:56:40 Medications Name Sig Start Date Stop Date Status Note LastModified by Organization Details LastModified Time cyclobenzap rine 10 mg tablet TAKE 1 TABLET BY MOUTH THREE TIMES DAILY NEEDED FOR MUSCLE SPASM 03/23 completed Not Available Not Available Not Available atorvastati n 40 mg tablet TAKE 1 TABLET BY MOUTH EVERY DAY active Not Available Not Available No t Available ropinirole 1 mg tablet TK 1 T PO APPROXIMA TELY 2 HOURS BEFORE BEDTIME EACH NIGHT. 03/23 completed Not Available Not Available Not Available clindamycin HCl 300 mg capsule TAKE 1 CAPSULE BY MOUTH EVERY 6 HOURS 03/23 completed Not Available Not Available Not Available ibuprofen 800 mg tablet Take 1 tablet 3 times a day by oral route. 03/23 completed Not Available Not Available Not Available albuterol sulfate 1.25 mg/3 mL solution for nebulizatio n INHALE THE CONTENTS OF 1 VIAL VIA NEBULIZER EVERY 4 HOURS NEEDED FOR SHORTNESS OF BREATH OR WHEEZING active Not Available Not Available No t Available meloxicam 15 mg tablet TK 1 T PO QD 03/23 completed Not Available Not Available Not Available cyanocobala min (vit B-12) 1,000 mcg tablet TAKE 1 TABLET BY MOUTH DAILY active Not Available Not Available No t Available hydrocodone 10 mg-acetamin ophen 325 mg tablet TAKE 1 TABLET BY MOUTH FOUR TIMES DAILY NEEDED active Not Available Not Available No t Available peg-electro lyte solution 420 gram oral solution TK UTD BY OFFICE 03/23 completed Not Available Not Available Not Available aspirin 81 mg tablet,hemanth yed release TK 1 T PO D 03/23 completed Not Available Not Available Not Available doxycycline monohydrate 100 mg tablet TAKE 1 TABLET BY MOUTH TWICE DAILY FOR 10 DAYS 03/23 completed Not Available Not Available Not Available prednisolon e acetate 1 % eye drops,suspe nsion INSTILL 1 DROP INTO RIGHT EYE QID. START DAY BEFORE SURGERY. 03/23 completed Not Available Not Available Not Available methocarbam ol 750 mg tablet Take 1 tablet 3 times a day by oral route. 03/23 completed Not Available Not Available Not Available tamsulosin 0.4 mg capsule TAKE 1 CAPSULE BY MOUTH ONCE DAILY 30 MINUTES AFTER THE SAME MEAL EVERY DAY active Not Available Not Available No t Available ropinirole 0.25 mg tablet Take 1 tablet every day by oral route. 03/23 completed Not Available Not Available Not Available hydrocodone 7.5 mg-acetamin ophen 325 mg tablet TK 1 T PO BID PRN P 03/23 completed Not Available Not Available Not Available pantoprazol e 40 mg tablet,hemanth yed release TAKE 1 TABLET BY MOUTH EVERY DAY active Not Available Not Available No t Available tobramycin 0.3 % eye drops INSTILL 1 DROP INTO RIGHT EYE QID. START DAY BEFORE SURGERY active Not Available Not Available No t Available promethazin e 25 mg tablet TK 1/2 T PO Q 6 H 03/23 completed Not Available Not Available Not Available losartan 25 mg tablet TAKE 1 TABLET BY MOUTH EVERY DAY active Not Available Not Available No t Available gabapentin 300 mg capsule TAKE 1 CAPSULE BY MOUTH EVERY NIGHT AT BEDTIME active Not Available Not Available No t Available levofloxaci n 500 mg tablet 03/23 completed Not Available Not Available Not Available lovastatin 20 mg tablet TK 1 T PO QD WITH THE JENNA MEAL 03/23 completed Not Available Not Available Not Available albuterol sulfate HFA 90 mcg/actuati on aerosol inhaler INHALE 1 PUFF BY MOUTH EVERY 4 TO 6 HOURS NEEDED SHORTNESS OF BREATH active Not Available Not Available No t Available celecoxib 100 mg capsule TAKE 1 CAPSULE BY MOUTH EVERY DAY active Not Available Not Available No t Available fluticasone propionate 50 mcg/actuati on nasal spray,suspe nsion SHAKE WELL AND U 2 SPRAYS IEN QD 03/23 completed Not Available Not Available Not Available finasteride 5 mg tablet TAKE 1 TABLET BY MOUTH DAILY active Not Available Not Available No t Available ezetimibe 10 mg tablet 03/23 completed Not Available Not Available Not Available ketorolac 0.4 % eye drops INSTILL 1 DROP INTO RIGHT EYE QID. START DAY BEFORE SURGERY. 03/23 completed Not Available Not Available Not Available tadalafil 5 mg tablet TAKE 1 TABLET BY MOUTH ONCE DAILY active Not Available Not Available No t Available Tylenol-Cod eine #3 03/23 completed Not Available Not Available Not Available naproxen 03/23 completed Not Available Not Available Not Available B-12 03/23 completed Not Available Not Available Not Available MC Classic Oxygen Concentrato r active Not Available Not Available Not Available Symbicort 160 mcg-4.5 mcg/actuati on HFA aerosol inhaler INL 2 PUFFS PO BID 03/23 completed Not Available Not Available Not Available cholecalcif emperatriz (vitamin D3) 1,250 mcg (50,000 unit) capsule TK 1 C PO WEEKLY 03/23 completed Not Available Not Available Not Available Dulera 200 mcg-5 mcg/actuati on HFA aerosol inhaler INHALE 2 PUFFS PO BID 03/23 completed Not Available Not Available Not Available Xarelto 10 mg tablet 03/23 completed Not Available Not Available Not Available Xarelto 20 mg tablet TAKE 1 TABLET BY MOUTH EVERY DAY WITH THE EVENING MEAL active Not Available Not Available No t Available Incruse Ellipta 62.5 mcg/actuati on powder for inhalation INHALE 1 PUFF BY MOUTH EVERY DAY AT THE SAME TIME EVERY DAY (BULK) 03/23 completed Not Available Not Available Not Available bupropion HCl 150 mg tablet,12 hr sustained-r elease(smok ing deterrent) 03/23 completed Not Available Not Available Not Available Wixela Inhub 250 mcg-50 mcg/dose powder for inhalation INHALE 1 PUFF BY MOUTH EVERY 12 HOURS 03/23 completed Not Available Not Available Not Available Vitals Date Recorded Body weight Body mass index (BMI) Body height Provider Name and Address Organization Details Last Updated DateTime 03/23/2024 79387.33 g 23.2 kg/m2 180.34 cm Carrie White RN [facility] 03/23/2024 09:21:28 Social History Question Answer Notes LastModified by Organizat ion Details LastModified Time Tobacco Smoking Status Former Smoker Merline Penalozaayde salazar [employer] 03/22/2024 16:59:49 What Is Your Level Of Alcohol Consumption? None [email or web address] Information not available 03/22/2024 When Did You Quit Smoking? 6-10yearssin celastcigare tte [email or web address] Information not available 03/22/2024 Sex: Unknown Functional Status None recorded. Mental Status None recorded. Family History Nothing Reported Notes:no ent Medical History Condition Response MRSA N ALLERGIES/HAYFEVER N BACK INJECTIONS N LUNG DISEASE/DISORDER N ESRD N INSOMNIA N HISTORY OF DRUG ABUSE N COPD N RADIATION / CHEMOTHERAPY N HIGH CHOLESTEROL / HYPERLIPIDEMIA N HYPERTHYROIDISM N PVD N BLOOD DISEASES N EAR OR HEARING PROBLEMS N HYPOTHYROIDISM N SHINGLES N BACK / NECK PROBLEMS N DEPRESSION (INCLUDING POST ) N HAVE YOU BEEN HOSPITALIZED OR SEEN IN [facility] IN THE PAST YEAR ? N FAILED BACK SYNDROME N STROKE/TIA N POLYCYSTIC OVARIES N OBESITY N HISTORY WITH COMPLICATIONS WITH ANESTHES IA ? N ANEURYSM N Do you have Advance directive? N USE OF BLOOD THINNERS N NO SIGNIFICANT PAST MEDICAL HISTORY N DIABETES, TYPE N VON WILLIBRAND'S DISEASE N PARATHYROID DISEASE N ENT N SEASONAL ALLERGIES N HEARTBURN / REFLUX N POST LAMINECTOMY SYNDROME N HEPATITIS / LIVER DISEASE N SLEEP DISORDER N ARTERIAL INSUFFICIENCY N SEIZURES/EPILEPSY N HEADACHES/MIGRAINES N CHF N PACEMAKER N DIZZINESS N AIDS/HIV N HEART DISEASE/HEART PROBLEMS N NEUROPSYCHOLOGICAL N HYPERTENSION N CANCER: SPECIFY N TOURETTE'S N BLOOD TRANSFUSION N ANEMIA/BLOOD DISORDER N ANESTHESIA COMPLICATIONS N CHRONIC EAR INFECTIONS N ATRIAL FIBRILLATION N AUTOIMMUNE DISEASE N TUBERCULOSIS N Immunizations Vaccine Type Date Status Note Provider Nam e and Address Organization Details Recorded Time Influenza, split virus, quadrivalent, preservative 6 completed Not Available [facility]ending [facility] to [facility] 08/26/2022 05:56:34 pneumococcal polysaccharide PPV23 5 completed Not Available [facility]ending [facility] 08/26/2022 05:56:34 Influenza, split virus, quadrivalent, PF 5 completed Not Available [facility]ending sale to [facility] 08/26/2022 05:56:34 Past Encounters Encounter ID Performer Location Encounter Start Date Encounter Closed Date Diagnosis/Indication Diagnosis SNOMED-CT Code Diagnosis ICD10 Code Diagnosis Note [id number] ANJU Vazquez [facility] [address] [place] [address] 03/23/2024 09:11:51 03/23/2024 10:21:00 Sensorineural hearing loss of bilateral ears 794747321 H90.3 Health Concerns Section Related Observation LastModified by Organization Detai ls LastModified Time None Recorded Concern Status LastModified by Organization Details LastModified Time None Recorded Advance Directives Directive None Recorded Payers Encounter Date Sequence Insurance Name Policy Number Policy Govea Covered Member ID Govea Member ID Guarantor Name 03/23/2024 1 [employer] (MEDICARE REPLACEMENT HMO) Fer Benoit [id number] Fer Benoit Notes Date Note Type Note Provider Name and Address Organization Details Recorded Time 03/23/2024 text/html This patient has a past medical history significant for allergic rhinitis, COPD, ARLEEN, oa, and sensorineural hearing loss. He presents to the office for decreased hearing onset years ago. 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 He has had hearing aids however these quit working approximately 5 months ago. He has not had a recent audiogram. We will obtain an audiogram. Denies any otalgia. Carrie Galicia, COAT FELLER [address] [facility], [facility] [address], [place], [address], [place] [facility] 03/23/2024 10:20:19
--- OUTSIDE RECORDS SUMMARY | 2024-08-04 09:09 | XMS_ITS | Clinical Summary ---
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 Gender Identity Not on file Sexual Orientation Not on file Plan of Treatment Upcoming Encounters Date Type Department Care Team (Late st Contact Info) Description 10/30/2024 10:30 AM CDT Office Visit [facility] Oncology and Hematology - [address] [facility] [address] [place] [address] Mauro Hector MD [address] [facility] [address] [place] [address] Health Maintenance Due Date Last Done Comments DTAP/TDAP/TD VACCINES (1 - Tdap) 1971 COLORECTAL SCREENING 1997 Colorectal Cancer Screening 1997 FIT-DNA Q 3 years 1997 FIT/FOBT Q 1 year 1997 Flex Sig/CT Colonography Q 5 years 1997 PNEUMOCOCCAL VACCINE 65+ YEARS (1 of 1 - PCV) 06/16/20 02 ZOSTER VACCINE (1 of 2) 2002 INFLUENZA VACCINE (#1) 2024 RSV VACCINE (60+ or ) (1 - 1-dose 75+ series) 2027 Insurance
--- OUTSIDE RECORDS SUMMARY | 2024-08-04 09:09 | XMS_ITS | Encounter Summary ---
Author Organization [facility] Address [address] [place] [address] Phone Care Team Providers Care Boiler Operator Name Role Phone João Randall Primary Care Provider [phone] Rahul Singh MD Primary Care Provider João Randall Primary Care Provider [phone] Angely HUERTA MD, [facility] Unavailable [phone] Rahul Singh MD Unavailable [phone] Yordan Singh MD Unavailable Mary Kate Nielsen APRN, [facility] Unavailable + [phone] Gasper Antoine MD Unavailable [phone] Encounter Details Date Type Department Care Team (Late st Contact Info) Description 05/31/2020 Telephone [facility] [address] [address] Rahul Singh MD [facility] [facility] [address] [place] [address] Social History Tobacco Use Types Packs/Day Years Used Date Smoking Tobacco: Former Cigarettes Smokeless Tobacco: Never Alcohol Use Standard Drinks/Week Comments No 0 (1 standard drink = 0.6 oz pur e alcohol) PHQ-2 Answer Date Recorded PHQ-2 Score 0 02/08/2020 Sexually Active Control Partners Comments Never Sex and Gender Information Value Date Recorded Sex Assigned at Not on file Legal Sex Male 9:38 PM CDT Gender Identity Not on file Sexual Orientation Not on file documented as of this encounter Miscellaneous Notes * Telephone Encounter - Lisha Leon - 05/31/2020 11:57 AM CST PATIENT WAS A NO SHOW FOR HIS APPT. CALLED PATIENT AND LVM FOR PATIENT TO GIVE US A CALL TO GET RESCHEDULED. S CORRESPONDENCE CLERK documented in this encounter Plan of Treatment Upcoming Encounters Date Type Department Care Team (Late st Contact Info) Description 08/14/2024 8:00 AM SALES CORRESPONDENCE CLERK Appointment [facility] [address] [place] [address] Yordan Singh MD [address] [place] [address] Discharge Disposition: Discharged to home or Selfcare 09/15/2024 10:00 AM CDT [facility] [address] [place] [address] Yordan Singh MD [address] [place] [address] 12/18/2024 8:30 AM CDT Office Visit [facility] [address] [place] [address] Gasper Antoine MD [address] [address] 12/18/2024 9:30 AM CDT [facility] - [place] [address] [place] [address] Mary Kate Nielsen, CASINO INVESTIGATOR, [employer]RO[employer]TER [address] [facility] [place] [place] [address] documented as of this encounter Visit Diagnoses Not on filedocumented in this encounter Additional Health Concerns Infection Onset Date Last Indicated Resolved Time COVID - 19 11/17/2021 11/17/2021 11/17/2021 8:04 AM CDT Respiratory Rule-Out 11/17/2021 11/17/2021 022 8:05 AM CDT COVID - 19 11/26/2021 11/26/2021 11/26/2021 10:5 6 PM CDT COVID - 19 Confirmed 11/26/2021 11/26/2021 022 12:16 AM CDT Assessment Noted Time PHQ-9 Depression Total Score: 0 03/01/20 20 10:12 AM CDT documented as of this encounter Care Teams Boiler Operator Relationship Specialty Start Date End Date João Randall [address] [place] [address] PCP - General Family Medicine 04/06/18 12/03/20 Rahul Singh MD [address] [place] [address] PCP - General Oncology 12/04/20 07/24/21 João Randall [address] [place] [address] PCP - General Family Medicine 07/25/21 Latosha Au III, MD [address] [place] [address] Consulting Physician Urology 03/19/22 Rahul Singh MD [address] [place] [address] Consulting Physician Oncology 12/24/22 Yordan Singh MD [address] [place] [address] Consulting Physician Pulmonary Disease 10/06/22 Mary Kate Nielsen APRN, [employer] [address] [place] [address] Nurse Practitioner Advanced Practice Nurse 04/13/22 Gasper Antoine MD [address] [address] Consulting Physician Urology 12/13/23 documented as of this encounter
--- OUTSIDE RECORDS SUMMARY | 2024-08-04 09:10 | XMS_ITS | Clinical Summary ---
Author Organization [facility] Address [address] [place] [address] Phone Care Team Providers Care Aluminum Pourer Name Role Phone João Randall Primary Care Provider [phone] Angely HUERTA MD, Courtney Unavailable [phone] Rahul Singh MD Unavailable [phone] Yordan Singh MD Unavailable Mary Kate Nieslen APRN, [employer]ILITIES ATTENDANT Unavailable [phone] Gasper Antoine MD Unavailable [phone] Allergies Active Allergy Reactions Criticality Noted Date Comments Ketorolac Tromethamine Rash Medium 07/15/2010 Oxycodone Hives 05/04/2018 Oxytocin Rash 08/08/2018 Medications gabapentin (NEURONTIN) 300 MG Capsule Take 300 mg by mouth daily. 0 Active albuterol 108 (90 Base) MCG/ACT Aerosol Solution INL 2 PFS PO Q 4 TO 6 H PRN 0 Active Xarelto 20 MG Tablet TAKE 1 TABLET BY MOUTH EVERY DAY WITH THE EVENING MEAL 2 Active HYDROcodone-aceta minophen (NORCO) 10-325 MG Tablet Take 1 Tablet by mouth 3 times daily as needed for Moderate or more severe pain. Active Tadalafil 5 MG Tablet Take 5 mg by mouth daily. 2 Active pantoprazole (PROTONIX) 40 MG Tablet Delayed Response Take 40 mg by mouth daily. Active OXYGEN CONCENTRATOR Use as directed 3 L 3 Active atorvastatin (LIPITOR) 40 MG Tablet Take 1 Tablet by mouth. 3 Active losartan (COZAAR) 25 MG Tablet Take 1 Tablet by mouth. 3 Active albuterol (PROVENTIL, VENTOLIN) (2.5 MG/3ML) 0.083% Nebulizer Soln USE 1 VIAL IN NEBULIZER 4 TIMES DAILY 120 mL 11 3 Active Cyanocobalamin (B-12) 1000 MCG CapsuleIndication s:Low vitamin B12 level Take 1 Capsule by mouth daily. 90 Capsule 3 4 Active finasteride (PROSCAR) 5 MG Tablet Take 1 Tablet by mouth daily. 90 Tablet 2 4 Active Breztri Aerosphere 160-9-4.8 MCG/ACT Aerosol inhale 2 puffs by mouth twice daily in the morning and in the evening Active Active Problems Problem Noted Date Diagnosed Date Multiple pulmonary nodules 03/14/2024 Iron deficiency anemia 12/25/2022 Iron deficiency 12/24/2022 BPH (benign prostatic hyperplasia) 11/27/2021 Stroke 11/27/2021 Arthritis 11/27/2021 Pneumonia due to COVID-19 virus 11/26/2021 Sepsis, unspecified organism 11/17/2021 COPD (chronic obstructive pulmonary disease) Chronic atrial fibrillation 11/17/2021 HTN (hypertension) 11/17/2021 HLD (hyperlipidemia) 11/17/2021 Leukocytosis 02/08/2020 Thrombocytosis 02/08/2020 Resolved Problems Problem Noted Date Diagnosed Date Resolved Date Acute respiratory failure with hypoxia 11/27/2021 10/06/2022 Pneumonia of right lower lob e due to infectious organism 11/17/2021 06/09/2024 Encounters Date Type Department Care Team Description 07/27/2024 [facility] [place] [address] [place] [address] Yordan Singh MD 06/09/2024 11:00 AM CARRY ALL DRIVER [facility]medicine [facility] [place] [address] [place] [address] Mary Kate Nielsen [employer], [employer]GING FACILITIES ATTENDANT History of stroke (Primary Dx); Low vitamin B12 level; Chronic atrial fibrillation (HCC); Primary hypertension; Hyperlipidemia, unspecified hyperlipidemia type Discharge Disposition: Discharged to home or Selfcare 06/09/2024 10:30 AM CARRY ALL DRIVER [facility] [address] [place] [address] Yordan Singh MD Other emphysema (HCC) (Primary Dx); Multiple pulmonary nodules; Primary hypertension Discharge Disposition: Discharged to home or Selfcare 06/09/2024 Travel 06/08/2024 Travel 05/10/2024 Refill [facility] [address] [place] [address] Gasper Antoine MD Medication Refill 05/09/2024 Refill [facility] [address] [place] [address] Gasper Antoine MD Medication Refill from Last 3 Months Immunizations Immunization Administration Dates Next Due Influenza, High-dose, Quadrivalent 05/10/2020 Influenza, high-dose, trivalent, PF 05/10/2020,0 03/20/2019 Pneumococcal Vaccine - 13 Valent 03/20/2019 Pneumococcal Vaccine Adult - 23 Valent 0 Family History Medical History Relation Name Comments Prostate Cancer Brother Liver Disease Mother Relation Name Status Comments Brother Father Mother Social History Tobacco Use Types Packs/Day Years Used Date Smoking Tobacco: Former Cigarettes Smokeless Tobacco: Never Tobacco Cessation:Counseling Given: No Alcohol Use Standard Drinks/Week Comments No 0 (1 standard drink = 0.6 oz pur e alcohol) PHQ-2 Answer Date Recorded Total Score - Questions 1-9 0 05/28 Sexually Active Control Partners Comments Not Currently Sex and Gender Information Value Date Recorded Sex Assigned at Not on file Legal Sex Male 9:38 PM CDT Gender Identity Not on file Sexual Orientation Not on file Last Filed Vital Signs Vital Sign Reading Time Taken Comments Blood Pressure 130/72 06/09/2024 10:42 AM CARRY ALL DRIVER Pulse 76 06/09/2024 10:42 AM CARRY ALL DRIVER Temperature 36.3 C (97.3 F) 06/09/2024 10:42 AM CARRY ALL DRIVER Respiratory Rate 14 06/09/2024 10:42 AM CARRY ALL DRIVER Oxygen Saturation 96% 06/09/2024 10:42 AM CARRY ALL DRIVER Inhaled Oxygen Concentration - - Weight 80.4 kg (177 lb 4.8 oz) 06/09/2024 10:42 AM CARRY ALL DRIVER Height 180.3 cm (5' 11 ) 06/09/2024 10:42 AM CARRY ALL DRIVER Body Mass Index 24.73 06/09/2024 10:42 AM CARRY ALL DRIVER Plan of Treatment Upcoming Encounters Date Type Department Care Team (Late st Contact Info) Description 08/14/2024 8:00 AM CARRY ALL DRIVER [facility] [address] [place] [address] Yordan Singh MD [address] [place] [address] Discharge Disposition: Discharged to home or Selfcare 09/15/2024 10:00 AM CDT Office Visit [facility] - Pulmonology & Sleep Medicine [facility] [address] [place] [address] Yordan Singh MD [address] [place] [address] 12/18/2024 8:30 AM CDT Office Visit [facility] [address] [place] [address] Gasper Antoine MD [address] [address] 12/18/2024 9:30 AM CDT [facility] [place] [address] [place] [phone] Mary Kate Nielsen, [employer], [employer]ODGING FACILITIES ATTENDANT [address] [place] [address] Health Maintenance Due Date Last Done Comments Hepatitis C Virus (HCV) Screening 1952 Colonoscopy 1997 Colorectal Cancer Screening 1997 Cologuard 2002 Immunochemical Fecal Occult Blood 2002 Zoster Immunization (1 of 2) 2002 Respiratory Syncytial Virus (RSV) Immunization (Adult) (1 - Risk 60-74 years 1-dose series) 2012 AAA Screening Ultrasound 2017 Influenza Immunization (#1) 02/27/202404/28, 05/10/2020, 03/20/2019, Additional history exists SARS-COV-2 Immunization ( season) 2024 03/18/2021, 02/25/2021 DTaP/Tdap/Td Immunization Discontinued 06/28/2006 TdaP Immunization Completed 06/28/2006 Pneumococcal Immunization (50+ years) Completed 05/10/2020, 03/20/2019, 04/02/2015, Additional history exists Pneumococcal Immunization Combined Discontinued 05/10/2020, 03/20/2019, 04/02/2015, Additional history exists PSA Discussion Discontinued 11/27/2022, 02/28, 07/25/2021, Additional history exists Hepatitis B Immunization Aged Out No longer eligible based on patient's age to complete this topic Meningococcal Immunization (ACWY) Aged Out No longer eligible based on patient's age to complete this topic Rotavirus Immunization Aged Out No lo nger eligible based on patient's age to complete this topic Procedures Procedure Name Priority Date/Time Associated Diagnosis Comments PSA SCREEN 11/27/2022 12:00 AM CDT from Last 3 Months or Most Recently Relevant to Health Maintenance Results * PSA SCREEN (11/27/2022 12:00 AM CDT) PSA (PROSTATE SPECIFIC ANTIGEN) 0.50 ng/mL SCAN 11/27/2022 us Provider Scan CHEMISTRY ORDERABLES Final Resul t SCAN from Last 3 Months or Most Recently Relevant to Health Maintenance Insurance MEDICARE C WELLCARE MEDICARE C WELLCARE Advance Directives * Full Code (Latest Code Status on File) Date Activated Date Inactivated Comments 11/27/2021 12:27 AM 11/29/2021 3:00 PM CPR-Full Vibha tment: FULL ARREST: Attempt Resuscitation/CPR wit intubation and mechanical ventilation. PRE-ARREST: Use entire range of life support measures to stabilize the patient. * Full Code Date Activated Date Inactivated Comments 11/17/2021 6:06 AM 11/19/2021 2:31 PM CPR-Full Reji atment: FULL ARREST: Attempt Resuscitation/CPR wit intubation and mechanical ventilation. PRE-ARREST: Use entire range of life support measures to stabilize the patient. Care Teams Aluminum Pourer Relationship Specialty Start Date End Date Jooã Randall [address] [place] [address] PCP - General Family Medicine 07/25/21 Latosha Au III, MD [address] [place] [address] Consulting Physician Urology 03/19/22 Rahul Singh MD [address] [place] [id number] Consulting Physician Oncology 12/24/22 Yordan Singh MD [address] [place] [address] Consulting Physician Pulmonary Disease 10/06/22 Mary Kate Nielsen, [employer], [employer]ODGING FACILITIES ATTENDANT [address] [place] [address] Nurse Practitioner Advanced Practice Nurse 04/13/22 Gasper Antoine MD [address] [address] Consulting Physician Urology 12/13/23
--- OUTSIDE RECORDS SUMMARY | 2024-08-04 09:10 | XMS_ITS | Continuity of Care Document ---
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 Role Phone João Randall MD Unavailable Unavailable Allergies, Adverse Reactions, Alerts Substance Reaction Status Criticality OXYCODONE HCL Active No Information Medications Medication Instructions Dosage Effective Dates (start - stop) Status Comments hydrocodone 10 mg-acetaminophen 325 mg tablet take 1 by Oral route 4 times every day as needed 1 - Active PRN for pain, avoid driving or operate machines, Cialis 5 mg tablet take 1 tablet by oral route every day 5 MG - Active Neurontin 300 mg capsule take 1 capsule by oral route every bedtime - Active avoid driving or operate machines Protonix 40 mg tablet,delayed release take 1 tablet by oral route every day 40 MG - Active Breztri Aerosphere 160 mcg-9mcg-4.8mcg/act uation HFA aerosol inhaler inhale 2 puff by inhalation route 2 times every day in the morning and evening 2.00 puff - Active albuterol sulfate HFA 90 mcg/actuation aerosol inhaler inhale 1 puff by inhalation route every 4 - 6 hours as needed as needed 1 puff - Active PRN for sob Flomax 0.4 mg capsule take 1 capsule by oral route every day 1/2 hour following the same meal each day 0.4 MG - Active Xarelto 20 mg tablet take 1 tablet by oral route every day with the evening meal 20 MG - Active Proscar 5 mg tablet take 1 tablet by oral route every day 5 MG - Active losartan 25 mg tablet take 1 tablet by oral route every day 25 MG - Active Lipitor 40 mg tablet take 1 tablet by oral route every day 40 MG - Active albuterol sulfate 2.5 mg/3 mL (0.083 %) solution for nebulization inhale 3 milliliter by nebulization route every 6 hours as needed 2.5 MG - Active PRN for sob Procedures Procedure Date PREV VISIT, EST, 65 & OVER OFFICE/OUTPATIENT VISIT, EST OFFICE/OUTPATIENT VISIT, EST OFFICE/OUTPATIENT VISIT, EST OFFICE/OUTPATIENT VISIT, EST OFFICE/OUTPATIENT VISIT, EST OFFICE/OUTPATIENT VISIT, EST OFFICE/OUTPATIENT VISIT, EST OFFICE/OUTPATIENT VISIT, EST OFFICE/OUTPATIENT VISIT, EST OFFICE/OUTPATIENT VISIT, EST OFFICE/OUTPATIENT VISIT, EST OFFICE/OUTPATIENT VISIT, EST OFFICE/OUTPATIENT VISIT, EST PREV VISIT, EST, 65 & OVER OFFICE/OUTPATIENT VISIT, EST OFFICE/OUTPATIENT VISIT, EST OFFICE/OUTPATIENT VISIT, EST OFFICE/OUTPATIENT VISIT, EST OFFICE/OUTPATIENT VISIT, EST OFFICE/OUTPATIENT VISIT, EST OFFICE/OUTPATIENT VISIT, EST OFFICE/OUTPATIENT VISIT, EST OFFICE/OUTPATIENT VISIT, EST OFFICE/OUTPATIENT VISIT, EST OFFICE/OUTPATIENT VISIT, EST OFFICE/OUTPATIENT VISIT, EST OFFICE/OUTPATIENT VISIT, EST OFFICE/OUTPATIENT VISIT, EST OFFICE/OUTPATIENT VISIT, EST OFFICE/OUTPATIENT VISIT, EST OFFICE/OUTPATIENT VISIT, EST OFFICE/OUTPATIENT VISIT, EST OFFICE/OUTPATIENT VISIT, EST OFFICE/OUTPATIENT VISIT, EST OFFICE/OUTPATIENT VISIT, EST OFFICE/OUTPATIENT VISIT, EST OFFICE/OUTPATIENT VISIT, EST OFFICE/OUTPATIENT VISIT, EST OFFICE/OUTPATIENT VISIT, EST PREV VISIT, EST, 65 & OVER OFFICE/OUTPATIENT VISIT, EST OFFICE/OUTPATIENT VISIT, EST OFFICE/OUTPATIENT VISIT, EST OFFICE/OUTPATIENT VISIT, EST OFFICE/OUTPATIENT VISIT, EST OFFICE/OUTPATIENT VISIT, EST OFFICE/OUTPATIENT VISIT, EST OFFICE/OUTPATIENT VISIT, EST OFFICE/OUTPATIENT VISIT, EST OFFICE/OUTPATIENT VISIT, EST OFFICE/OUTPATIENT VISIT, EST OFFICE/OUTPATIENT VISIT, EST OFFICE/OUTPATIENT VISIT, EST OFFICE/OUTPATIENT VISIT, EST OFFICE/OUTPATIENT VISIT, EST PREV VISIT, EST, 65 & OVER OFFICE/OUTPATIENT VISIT, EST OFFICE/OUTPATIENT VISIT, EST OFFICE/OUTPATIENT VISIT, EST -2019 OFFICE/OUTPATIENT VISIT, EST OFFICE/OUTPATIENT VISIT, EST OFFICE/OUTPATIENT VISIT, EST OFFICE/OUTPATIENT VISIT, EST OFFICE/OUTPATIENT VISIT, EST -2019 OFFICE/OUTPATIENT VISIT, EST -2019 OFFICE/OUTPATIENT VISIT, EST OFFICE/OUTPATIENT VISIT, EST -2019 OFFICE/OUTPATIENT VISIT, EST OFFICE/OUTPATIENT VISIT, EST -2019 PREV VISIT, EST, 65 & OVER OFFICE/OUTPATIENT VISIT, EST OFFICE/OUTPATIENT VISIT, EST OFFICE/OUTPATIENT VISIT, EST OFFICE/OUTPATIENT VISIT, EST OFFICE/OUTPATIENT VISIT, EST OFFICE/OUTPATIENT VISIT, EST OFFICE/OUTPATIENT VISIT, EST OFFICE/OUTPATIENT VISIT, EST OFFICE/OUTPATIENT VISIT, EST OFFICE/OUTPATIENT VISIT, EST OFFICE/OUTPATIENT VISIT, EST OFFICE/OUTPATIENT VISIT, EST OFFICE/OUTPATIENT VISIT, EST PREV VISIT, EST, 65 & OVER OFFICE/OUTPATIENT VISIT, EST OFFICE/OUTPATIENT VISIT, EST OFFICE/OUTPATIENT VISIT, EST OFFICE/OUTPATIENT VISIT, EST OFFICE/OUTPATIENT VISIT, EST OFFICE/OUTPATIENT VISIT, EST OFFICE/OUTPATIENT VISIT, EST OFFICE/OUTPATIENT VISIT, EST OFFICE/OUTPATIENT VISIT, EST OFFICE/OUTPATIENT VISIT, EST OFFICE/OUTPATIENT VISIT, EST PREV VISIT, EST, 65 & OVER OFFICE/OUTPATIENT VISIT, EST OFFICE/OUTPATIENT VISIT, EST OFFICE/OUTPATIENT VISIT, EST OFFICE/OUTPATIENT VISIT, EST PREV VISIT, EST, AGE 40-64 OFFICE/OUTPATIENT VISIT, EST OFFICE/OUTPATIENT VISIT, EST OFFICE/OUTPATIENT VISIT, EST OFFICE/OUTPATIENT VISIT, EST OFFICE/OUTPATIENT VISIT, EST OFFICE/OUTPATIENT VISIT, EST OFFICE/OUTPATIENT VISIT, EST OFFICE/OUTPATIENT VISIT, EST OFFICE/OUTPATIENT VISIT, EST OFFICE/OUTPATIENT VISIT, EST OFFICE/OUTPATIENT VISIT, EST OFFICE/OUTPATIENT VISIT, EST OFFICE/OUTPATIENT VISIT, EST PREV VISIT, EST, AGE 40-64 OFFICE/OUTPATIENT VISIT, EST OFFICE/OUTPATIENT VISIT, EST OFFICE/OUTPATIENT VISIT, EST OFFICE/OUTPATIENT VISIT, EST OFFICE/OUTPATIENT VISIT, EST OFFICE/OUTPATIENT VISIT, EST OFFICE/OUTPATIENT VISIT, EST OFFICE/OUTPATIENT VISIT, EST PREV VISIT, NEW, AGE 40-64 Advance Directives Directive Yes / No Effective Date File Name No Information Encounters Encounter Description Practice Location Reason(s) For Visit Diagnoses Date Provider Providers Copied on Encounter PREV VISIT, EST, 65 & OVER [facility], [address], [place], [place], [address], [place] tel:[phone] [facility] physical (chief complaint) Encounter for general adult medical exam w abnormal findingsIron deficiency anemiaChronic pain syndromeBPH w/ lower urinary tract symptomCentrilobul ar emphysemaHeadacheT hrombocytosisEssen tial (primary) hypertensionMixed hyperlipidemiaAtri al fibrillation 5 Prakash Moyer. [address], [place], [place], [address] , [place]. tel:[phone] OFFICE/OUTPA TIENT VISIT, [facility], [place], [address], [place], [place], [address], [place] tel:[phone] [facility] pain (chief complaint)a fib (chief complaint)i katia (chief complaint)B PH (chief complaint) Atrial fibrillationChroni c pain syndromeBPH w/ lower urinary tract symptomIron deficiency anemia 4 Prakash Moyer. [address], [place], [place], [address] , [place]. tel:[phone] OFFICE/OUTPA TIENT VISIT, [facility], [place], [address], [place], [place], [address], [place] tel:[phone] [facility] pain (chief complaint)G ERD1 (chief complaint)A fib1 (chief complaint)h earing loss1 (chief complaint) Chronic pain syndromeGERD w/o esophagitisAtrial fibrillationConduc tive hearing loss, bilateral 4 Prakash Moyer. [address], [place], [place], [address] , [place]. tel:[phone] OFFICE/OUTPA TIENT VISIT, [facility], [place], [address], [place], [place], [address], [place] tel:[phone] [facility] COPD1 (chief complaint)a fib1 (chief complaint)p ain (chief complaint) Centrilobular emphysemaChronic pain syndromeAtrial fibrillation 4 Prakash Moyer. [address], [place], [place], [address] , [place]. tel:[phone] OFFICE/OUTPA TIENT VISIT, [facility], [place], [address], [place], [place], [address], [place] tel:[phone] [facility] pain (chief complaint)C OPD1 (chief complaint)h earing loss1 (chief complaint) Centrilobular emphysemaChronic pain syndromeConductive hearing loss, bilateral Sep 4 Prakash Moyer. [address], [place], [place], [address] , [place]. tel:[phone] OFFICE/OUTPA TIENT VISIT, [facility], [place], [address], [place], [place], [address], [place] tel:[phone] [facility] pain (chief complaint) Chronic pain syndrome 4 Prakash Moyer. [address], [place], [place], [address] , [place]. tel:[phone] OFFICE/OUTPA TIENT VISIT, [facility], [place], [address], [place], [place], [address], [place] tel:[phone] [facility] COPD1 (chief complaint)p ain (chief complaint) Chronic pain syndromeCentrilobu lar emphysema 4 Prakash Moyer. [address], [place], [place], [address] , [place]. tel:[phone] OFFICE/OUTPA TIENT VISIT, [facility], [place], [address], [place], [place], [address], [place] tel:[phone] [facility] BPH1 (chief complaint)p ain (chief complaint) BPH w/ lower urinary tract symptomChronic pain syndrome 4 Prakash Connor [address], [place], [place], [address] , [place]. [phone] OFFICE/OUTPA TIENT VISIT, [facility], [place], [address] [place], [address], [place] tel:[phone] [facility] afib1 (chief complaint)B PH1 (chief complaint)b ack pain1 (chief complaint)G ERD1 (chief complaint) BPH w/ lower urinary tract symptomChronic pain syndromeGERD w/o esophagitisAtrial fibrillation 4 Prakash Connor [address], [place], [place], [address] , [place]. [phone] OFFICE/OUTPA TIENT VISIT, [facility], [place], [address] [place], [address], [place] tel:[phone] [facility] pain (chief complaint)B PH1 (chief complaint)H TN (chief complaint)H LP (chief complaint) BPH w/ lower urinary tract symptomChronic pain syndromeMixed hyperlipidemiaEsse ntial (primary) hypertension 4 Prakash Connor [address], [place], [place], [address] , [place]. tel:[phone] OFFICE/OUTPA TIENT VISIT, [facility], [place], [address] [place], [address], [place] tel:[phone] [facility] BPH1 (chief complaint)p ain (chief complaint) BPH w/ lower urinary tract symptomChronic pain syndrome 4 Prakash Connor [address], [place], [place], [address] , [place]. [phone] OFFICE/OUTPA TIENT VISIT, [facility], [place], [address] [place], [address], [place] tel:[phone] [facility] pain (chief complaint) Chronic pain syndrome 4 Prakash Moyer. [address], [place], [place], [address] , [place]. tel:[phone] OFFICE/OUTPA TIENT VISIT, [facility], [place], [address], [place], [place], [address], [place] tel:[phone] [facility] pain (chief complaint)e mphysema1 (chief complaint) Centrilobular emphysemaChronic pain syndromeTobacco useAbnormality of gait 4 Prakash Moyer. [address], [place], [place], [address] , [place]. tel:[phone] PREV VISIT, EST, 65 & OVER [facility], [address], [place], [place], [address], [place] tel:[phone] [facility] Medicine physical (chief complaint) Encounter for general adult medical exam w abnormal findingsBPH with LUTSIron deficiency anemiaChronic pain syndromeMixed hyperlipidemiaEsse ntial (primary) hypertensionCentri lobular emphysemaObstructi ve Sleep Apnea Hypopnea 3 Prakash Moyer. [address], [place], [place], [address] , [place]. [phone] OFFICE/OUTPA TIENT VISIT, [facility], [place], [address], [place], [place], [address], [place] tel:[phone] [facility] pain (chief complaint) Chronic pain syndromeAbnormalit y of gait 3 Prakash Moyer. [address], [place], [place], [address] , [place]. tel:[phone] OFFICE/OUTPA TIENT VISIT, [facility], [place], [address], [place], [place], [address], [place] tel:[phone] [facility] pain1 (chief complaint)B PH1 (chief complaint) Chronic pain syndromeBPH w/ lower urinary tract symptom 3 Prakash Moyer. [address], [place], [place], [address] , [place]. tel:[phone] OFFICE/OUTPA TIENT VISIT, [facility], [place], [address], [place], [place], [address], [place] tel:[phone] [facility] pain (chief complaint)W ell child HPI (chief complaint)a mbulation1 (chief complaint)p neumonia1 (chief complaint) Chronic pain syndromeIron deficiency anemiaAbnormality of gaitAngiodysplasia of stomach and duodenum with bleedingPneumoniaG ERD w/o esophagitis Mar-0 3 Prakash Moyer. [address], [place], [place], [address] , [place]. tel:[phone] OFFICE/OUTPA TIENT VISIT, [facility], [place], [address], [place], [place], [address], [place] tel:[phone] [facility] AVM (chief complaint)p ain (chief complaint)p neumonia1 (chief complaint) Iron deficiency anemiaChronic pain syndromePneumonia Sep-0 3 Prakash Moyer. [address], [place], [place], [address] , [place]. tel:[phone] OFFICE/OUTPA TIENT VISIT, [facility], [place], [address], [place], [place], [address], [place] tel:[phone] [facility] iron deficiency anemia1 (chief complaint)p ain (chief complaint) Abnormality of gaitChronic pain syndromeIron deficiency anemiaAngiodysplas ia of stomach and duodenum with bleeding Jan-0 3 Prakash Moyer. [address], [place], [place], [address] , [place]. tel:[phone] OFFICE/OUTPA TIENT VISIT, [facility], [place], [address], [place], [place], [address], [place] tel:[phone] [facility] iron (chief complaint)p ain (chief complaint) Iron deficiency anemiaChronic pain syndromeAbnormalit y of gait Tommy-0 6-202 3 Randall João. [address], [place], [place], [address] , [place]. tel:[phone] OFFICE/OUTPA TIENT VISIT, [facility], [place], [address], [place], [place], [address], [place] tel:[phone] [facility] anemia1 (chief complaint)b ack pain1 (chief complaint)G ERD1 (chief complaint) Chronic pain syndromeIron deficiency anemiaThrombocytos isGERD w/o esophagitis 3 Prakash João. [address], [place], [place], [address] , [place]. tel:[phone] OFFICE/OUTPA TIENT VISIT, [facility], [place], [address], [place], [place], [address], [place] tel:[phone] [facility] back pain (chief complaint)B PH (chief complaint)a fib (chief complaint)a nemia1 (chief complaint) Atrial fibrillationChroni c pain syndromeBPH w/o lower urinary tract symptomAnemia 3 Randall João. [address], [place], [place], [address] , [place]. tel:[phone] OFFICE/OUTPA TIENT VISIT, [facility], [place], [address], [place], [place], [address], [place] tel:[phone] [facility] emphysema1 (chief complaint)H LP (chief complaint)H TN (chief complaint)p ain (chief complaint) Centrilobular emphysemaChronic pain syndromeEssential (primary) hypertensionMixed hyperlipidemiaAtri al fibrillation 3 Randall João. [address], [place], [place], [address] , [place]. tel:[phone] OFFICE/OUTPA TIENT VISIT, [facility], [place], [address], [place], [place], [address], [place] tel:[phone] [facility] pain (chief complaint)G ERD1 (chief complaint)p olyp1 (chief complaint)C OPD1 (chief complaint) EsophagitisCentril obular emphysemaPolyp of colonChronic pain syndrome 3 Prakash Moyer. [address], [place], [place], [address] , [place]. tel:[phone] OFFICE/OUTPA TIENT VISIT, [facility], [place], [address], [place], [place], [address], [place] tel:[phone] [facility] COPD1 (chief complaint)p ain (chief complaint) Centrilobular emphysemaChronic pain syndrome 3 Prakash Moyer. [address], [place], [place], [address] , [place]. tel:[phone] OFFICE/OUTPA TIENT VISIT, [facility], [place], [address], [place], [place], [address], [place] tel:[phone] [facility] pain (chief complaint)a fib (chief complaint)C OPD1 (chief complaint)p neumonia1 (chief complaint) Chronic pain syndromePneumoniaA nemiaCentrilobular emphysemaAtrial fibrillation 3 Prakash Moyer. [address], [place], [place], [address] , [place]. tel:[phone] OFFICE/OUTPA TIENT VISIT, [facility], [place], [address], [place], [place], [address], [place] tel:[phone] [facility] pneumnia1 (chief complaint)C OPD (chief complaint)a nemia1 (chief complaint)p ain (chief complaint) Centrilobular emphysemaPneumonia AnemiaChronic pain syndromeGERD w/o esophagitis 3 Prakash Moyer. [address], [place], [place], [address] , [place]. tel:[phone] OFFICE/OUTPA TIENT VISIT, [facility], [place], [address], [place], [place], [address], [place] tel:[phone] [facility] lethargy1 (chief complaint) Shortness of breathTachypneaWea ayseess 3 Prakash Moyer. [address], [place], [place], [address] , [place]. [phone] OFFICE/OUTPA TIENT VISIT, [facility], [place], [address], [place], [place], [address], [place] tel:[phone] [facility] pain (chief complaint)a fib (chief complaint)h and pain1 (chief complaint) Primary OA of handChronic pain syndromeAtrial fibrillationTobacc o useOccult blood in stool 2 Prakash Moyer. [address], [place], [place], [address] , [place]. [phone] OFFICE/OUTPA TIENT VISIT, [facility], [place], [address], [place], [place], [address], [place] tel:[phone] [facility] pain1 (chief complaint)G ERD1 (chief complaint)a nemia1 (chief complaint) AnemiaOccult blood in stoolGERD w/o esophagitisChronic pain syndromeThrombocyt osisTobacco use 2 Prakash Moyer. [address], [place], [place], [address] , [place]. [phone] OFFICE/OUTPA TIENT VISIT, [facility], [place], [address] [place], [address], [place] tel:[phone] [facility] phos (chief complaint)B PH1 (chief complaint)a nemia1 (chief complaint)G ERD1 (chief complaint)p ain (chief complaint) BPH w/o lower urinary tract symptomStrokeLeuko cytosisAnemiaThrom bocytosisOther disorders of phosphorus metabolismGERD w/o esophagitisChronic pain syndrome 2 Prakash Moyer. [address], [place], [place], [address] , [place]. [phone] OFFICE/OUTPA TIENT VISIT, [facility], [place], [address], [place], [place], [address], [place] tel:[phone] [facility] BPH1 (chief complaint)g ait1 (chief complaint)p ain (chief complaint) Chronic pain syndromeStrokeAbno rmalities of gaitBPH w/o lower urinary tract symptom Sep-2 2 Prakash Moyer. [address], [place], [place], [address] , [place]. tel:[phone] OFFICE/OUTPA TIENT VISIT, [facility], [place], [address], [place], [place], [address], [place] tel:[phone] [facility] pain (chief complaint)W BC (chief complaint)h yperkalemic 1 (chief complaint)s troke1 (chief complaint) Chronic pain syndromeOther disorders of phosphorus metabolismHyperkal emiaLeukocytosisSt roke 2 Randall João. [address], [place], [place], [address] , [place]. tel:[phone] OFFICE/OUTPA TIENT VISIT, [facility], [place], [address], [place], [place], [address], [place] tel:[phone] [facility] pain (chief complaint) Chronic pain syndrome 2 Randall João. [address], [place], [place], [address] , [place]. tel:[phone] OFFICE/OUTPA TIENT VISIT, [facility], [place], [address], [place], [place], [address], [place] tel:[phone] [facility] BPH1 (chief complaint)C OVID (chief complaint)p ain (chief complaint) Pneumonia due to COVID-19BPH with LUTSEssential (primary) hypertensionChroni c pain syndrome 2 Randall João. [address], [place], [place], [address] , [place]. tel:[phone] OFFICE/OUTPA TIENT VISIT, [facility], [place], [address], [place], [place], [address], [place] tel:[phone] [facility] BPH1 (chief complaint)C OVID1 (chief complaint)H TN (chief complaint) BPH w/ lower urinary tract symptomEssential (primary) hypertensionPneumo yesi due to COVID-19 2 Prakash Connor [address], [place], [place], [address] , [place]. tel:[phone] OFFICE/OUTPA TIENT VISIT, [facility], [place], [address], [place], [place], [address], [place] tel:[phone] [facility] fatigue1 (chief complaint) PneumoniaAcute respiratory failure w/ hypoxiaMalaise 2 Prakash Connor [address], [place], [place], [address] , [place]. tel:[phone] OFFICE/OUTPA TIENT VISIT, [facility], [place], [address], [place], [place], [address], [place] tel:[phone] [facility] pain (chief complaint)p neumonia1 (chief complaint)l eukocytosis 1 (chief complaint)k cl (chief complaint) PneumoniaLeukocyto sisHyperkalemiaOth er disorders of phosphorus metabolismStrokeCh ronic pain syndrome 2 Prakash Connor [address], [place], [place], [address] , [place]. tel:[phone] PREV VISIT, EST, 65 & OVER [facility], [address], [place], [place], [address], [place] tel:[phone] [facility] physical (chief complaint) Encounter for general adult medical exam w abnormal findingsAtrial fibrillationEssent ial (primary) hypertensionHyperl ipidemiaSleep apneaBPH with LUTSEmphysemaStrok eChronic pain syndrome 2 Prakash Connor [address], [place], [place], [address] , [place]. tel:[phone] OFFICE/OUTPA TIENT VISIT, [facility], [place], [address], [place], [place], [address], [place] tel:[phone] [facility] pain (chief complaint)B PH1 (chief complaint)a fib (chief complaint)H TN (chief complaint)h earing loss1 (chief complaint) Chronic pain syndromeBPH with LUTSAtrial fibrillationConduc tive hearing loss, bilateralEssential (primary) hypertension 2 Prakash Moyer. [address], [place], [place], [address] , [place]. tel:[phone] OFFICE/OUTPA TIENT VISIT, [facility], [place], [address], [place], [place], [address], [place] tel:[phone] [facility] pain (chief complaint)H TN (chief complaint)h earing aid (chief complaint)C VA1 (chief complaint) Essential (primary) hypertensionChroni c pain syndromeConductive hearing loss, bilateralStroke 2 Prakash Moyer. [address], [place], [place], [address] , [place]. tel:[phone] OFFICE/OUTPA TIENT VISIT, [facility], [place], [address] [place], [address], [place] tel:[phone] [facility] pain (chief complaint)H TN (chief complaint)H LP (chief complaint)C VA (chief complaint) BPH with LUTSEssential (primary) hypertensionHyperl ipidemiaStrokeAtri al fibrillationChroni c pain syndrome 2 Randall João. [address], [place], [place], [address] , [place]. tel:[phone] OFFICE/OUTPA TIENT VISIT, [facility], [place], [address], [place], [place], [address], [place] tel:[phone] [facility] CVA1 (chief complaint)b ack pain1 (chief complaint) StrokeEssential (primary) hypertensionChroni c pain syndromeHyperlipid emia 1 Prakash Moyer. [address], [place], [place], [address] , . tel:[phone] OFFICE/OUTPA TIENT VISIT, [facility], [place], [address], [place], [place], [address], [place] tel:[phone] [facility] back pain1 (chief complaint)s leep apnea1 (chief complaint)H TN (chief complaint)h earing loss1 (chief complaint) Conductive hearing loss, bilateralSleep apneaChronic pain syndromeEssential (primary) hypertension 1 Prakash Moyer. [address], [place], [place], [address] , [place]. tel: [phone] OFFICE/OUTPA TIENT VISIT, [facility], [place], [address], [place], [place], [address], [place] tel:[phone] [facility] lung nodule1 (chief complaint)p ain (chief complaint) Chronic pain syndromeEmphysema 1 Prakash Moyer. [address], [place], [place], [address] , [place]. tel:[phone] OFFICE/OUTPA TIENT VISIT, EST [facility], [address] [place], [address], [place] tel:[phone] [facility] pain (chief complaint)C OPD1 (chief complaint)s leep apnea1 (chief complaint)t obacco (chief complaint) Tobacco useChronic pain syndromeSleep apneaEmphysema 1 Prakash Moyer. [address], [place], [place], [address] , [place]. tel:[phone] OFFICE/OUTPA TIENT VISIT, [facility], [place], [address] [place], [address], [place] tel:[phone] [facility] pain (chief complaint)t obacco1 (chief complaint) Other spondylosis, lumbar regionTobacco use 1 Prakash Moyer. [address], [place], [place], [address] , [place]. tel:[phone] OFFICE/OUTPA TIENT VISIT, [facility], [place], [address], [place], [place], [address], [place] tel:[phone] [facility] pain1 (chief complaint)E D (chief complaint) Chronic pain syndromeMale erectile dysfunction, unspecified 1 Randall João. [address], [address], [place], [place], [address] , [place]. tel:[phone] OFFICE/OUTPA TIENT VISIT, [facility], [place], [address], [place], [place], [address], [place] tel:[phone] [facility] back pain1 (chief complaint)H LP (chief complaint) Chronic pain syndromeHyperlipid emiaOther spondylosis, lumbar region 1 Prakash João. [address], [address], [place], [place], [address] , [place]. tel:[phone] OFFICE/OUTPA TIENT VISIT, [facility], [place], [address], [place], [place], [address], [place] tel:[phone] [facility] leukocytosi s1 (chief complaint)H LP (chief complaint)b ack pain1 (chief complaint) LeukocytosisHyperl ipidemiaOther spondylosis, lumbar region 1 Randall João. [address], [place], [place], [address] , [place]. tel:[phone] OFFICE/OUTPA TIENT VISIT, [facility], [place], [address], [place], [place], [address], [place] tel:[phone] [facility] back pain1 (chief complaint)B PH1 (chief complaint)H LP (chief complaint) Other spondylosis, lumbar regionBPH with LUTSHyperlipidemia Leukocytosis 1 Randall João. [address], [address], [place], [place], [address] , [place]. tel:[phone] OFFICE/OUTPA TIENT VISIT, [facility], [place], [address], [place], [place], [address], [place] [phone] [facility] pain (chief complaint) Other spondylosis, lumbar regionChronic pain syndrome 1 Prakash Moyer. [address], [place], [place], [address] , [place]. tel:[phone] OFFICE/OUTPA TIENT VISIT, [facility], [address], [place], [place], [address], [place] [phone] [facility] pain (chief complaint) Lumbago with sciatica, right sideChronic pain syndrome 1 Prakash Moyer. [address], [place], [place], [address] , [place]. tel:[phone] PREV VISIT, EST, 65 & OVER [facility], [address], [place], [place], [address], [place] [phone] [facility] physical (chief complaint) Encounter for general adult medical exam w abnormal findingsBPH with LUTSEmphysemaHyper lipidemiaChronic pain syndrome 1 Prakash Moyer. [address], [place], [place], [address] , [place]. tel:[phone] Referring Provider: Annel Frias [address], [place], [place], [address]. tel:[phone] OFFICE/OUTPA TIENT VISIT, [facility], [place], [address], [place], [place], [address], [place] tel:[phone] [facility] pain (chief complaint)B PH (chief complaint) Chronic pain syndromeBPH with LUTS 1 Prakash Moyer. [address], [address], [place], [place], [address] , [place]. [phone] Referring Provider: João Randall [address], [place], [place], [address]. tel:[phone] OFFICE/OUTPA TIENT VISIT, [facility], [place], [address], [place], [place], [address], [place] tel:[phone] [facility] pain (chief complaint)s leep apnea1 (chief complaint) Sleep apneaChronic pain syndrome 0 Prakash Moyer. [address], [place], [place], [address] , [place]. tel:[phone] Referring Provider: Annel Frias [address], [place], [place], [address]. tel:[phone] OFFICE/OUTPA TIENT VISIT, [facility], [place], [address], [place], [place], [address], [place] tel:[phone] [facility] pain (chief complaint) Chronic pain syndrome 0 Prakash Moyer. [address], [place], [place], [address] , [place]. tel:[phone] Referring Provider: Annel Frias [address], [place], [place], [address]. tel:[phone] OFFICE/OUTPA TIENT VISIT, [facility], [place], [address], [place], [place], [address], [place] tel:[phone] [facility] Medicine COPD1 (chief complaint)p ain (chief complaint) Chronic pain syndromeEmphysema 0 Prakash Connor [address], [place], [place], [address] , [place]. tel:[phone] Referring Provider: Annel Frias [address], [place], [place], [address]. tel:[phone] OFFICE/OUTPA TIENT VISIT, [facility], [place], [address], [place], [place], [address], [place] tel:[phone] [facility] Medicine pain (chief complaint)C OPD1 (chief complaint)s leep apnea1 (chief complaint) Chronic pain syndromeEmphysemaS leep apnea Sep- 0 Prakash Connor [address], [place], [place], [address] , [place]. tel:[phone] Referring Provider: Annel Frias [address], [place], [place], [address]. tel:[phone] OFFICE/OUTPA TIENT VISIT, [facility], [place], [address], [place], [place], [address], [place] tel:[phone] [facility] leukocytosi s1 (chief complaint)b ack pain1 (chief complaint)H Lp (chief complaint) LeukocytosisHyperl ipidemiaChronic pain syndromeTobacco use 0 Prakash Moyer. [address], [place], [place], [address] , [place]. tel:[phone] Referring Provider: Annel Frias [address], [place], [place], [address]. tel:[phone] OFFICE/OUTPA TIENT VISIT, [facility], [place], [address], [place], [place], [address], [place] tel:[phone] [facility] thyroid (chief complaint)t obacco1 (chief complaint)b ack pain1 (chief complaint)l eukocytosis 1 (chief complaint) LeukocytosisDisord er of thyroid, unspecifiedTobacco useChronic pain syndrome 0 Prakash Connor [address], [place], [place], [address] , [place]. [phone] Referring Provider: Annel Frias [address], [place], [place], [address]. tel:[phone] OFFICE/OUTPA TIENT VISIT, [facility], [place], [address], [place], [place], [address], [place] tel:[phone] [facility] pain (chief complaint)t obacco1 (chief complaint)w eight1 (chief complaint) Chronic pain syndromeTobacco useAbnormal weight lossLeukocytosis 0 Prakash Connor [address], [place], [place], [address] , [place]. [phone] Referring Provider: Annel Frias [address], [place], [place], [address]. tel:[phone] OFFICE/OUTPA TIENT VISIT, [facility], [place], [address], [place], [place], [address], [place] tel:[phone] [facility] platelet (chief complaint)t hyroid (chief complaint)p ain (chief complaint) Essential thrombocytosisLeuk ocytosisDisorder of thyroid, unspecifiedChronic pain syndromeEncounter for screening for malignant neoplasm of colon 0 Prakash Moyer. [address], [place], [place], [address] , [place]. tel:[phone] Referring Provider: João Randall [address], [place], [place], [address]. tel:[phone] OFFICE/OUTPA TIENT VISIT, [facility], [place], [address], [place], [place], [address], [place] tel:[phone] [facility] pain (chief complaint) Chronic pain syndrome 0 Prakash Moyer. [address], [place], [place], [address] , [place]. tel:[phone] Referring Provider: João Randall [address], [place], [place], [address]. tel:[phone] OFFICE/OUTPA TIENT VISIT, [facility], [place], [address], [place], [place], [address], [place] tel:[phone] [facility] platelet1 (chief complaint)t hyroid (chief complaint)w bc (chief complaint)c hronic pain1 (chief complaint) Chronic pain syndromeEssential thrombocytosisLeuk ocytosisDisorder of thyroid, unspecified Aug- 0 Prakash Moyer. [address], [place], [place], [address] , [place]. tel:[phone] Referring Provider: Annel Frias [address], [place], [place], [address]. tel:[phone] OFFICE/OUTPA TIENT VISIT, [facility], [place], [address], [place], [place], [address], [place] tel:[phone] [facility] Physical (chief complaint)C OPD1 (chief complaint)E D (chief complaint) BPH with LUTSEmphysemaHyper lipidemiaSleep apneaChronic pain syndromeMale erectile dysfunction, unspecified 0 Prakash Moyer. [address], [place], [place], [address] , [place]. tel:[phone] Referring Provider: Annel Frias [address], [place], [place], [address]. tel:[phone] PREV VISIT, EST, 65 & OVER [facility], [address], [place], [place], [address], [place] tel:[phone] [facility] Medicine Physical (chief complaint) Encounter for general adult medical exam w abnormal findingsSleep apneaHyperlipidemi aChronic pain syndromeBPH with LUTS 0 Prakash Moyer. [address], [place], [place], [address] , [place]. tel:[phone] Referring Provider: Annel Frias [address], [place], [place], [address]. tel:[phone] OFFICE/OUTPA TIENT VISIT, [facility], [place], [address], [place], [place], [address], [place] tel:[phone] [facility] BPH1 (chief complaint)c hronic pain1 (chief complaint)f atigue1 (chief complaint)C OPD1 (chief complaint) BPH with LUTSEmphysemaChron ic pain syndromeFatigue 0 Prakash Moyer. [address], [place], [place], [address] , [place]. [phone] Referring Provider: Annel Frias [address], [place], [place], [address]. tel:[phone] OFFICE/OUTPA TIENT VISIT, [facility], [place], [address], [place], [place], [address], [place] tel:[phone] [facility] sleep apnea1 (chief complaint)c hronic pain (chief complaint)H LP (chief complaint) Sleep apneaChronic pain syndromeHyperlipid emia 9 Prakash Moyer. [address], [place], [place], [address] , [place]. tel:[phone] Referring Provider: João Randall, [address], [place], [place], [address]. tel:[phone] OFFICE/OUTPA TIENT VISIT, [facility], [place], [address], [place], [place], [address], [place] tel:[phone] [facility] chronic pain (chief complaint)E D (chief complaint) Chronic pain syndromeMale erectile dysfunction, unspecified 9 Prakash Moyer. [address], [place], [place], [address] , [place]. [phone] OFFICE/OUTPA TIENT VISIT, [facility], [place], [address], [place], [place], [address], [place] tel:[phone] [facility] chronic pain1 (chief complaint)n caroline pain1 (chief complaint) Chronic pain syndrome 9 Randall João. [address], [place], [place], [address] , [place]. [phone] OFFICE/OUTPA TIENT VISIT, [facility], [place], [address], [place], [place], [address], [place] tel:[phone] [facility] chronic pain (chief complaint)E D (chief complaint) Chronic pain syndromeMale erectile dysfunction, unspecified 9 Prakash Moyer. [address], [place], [place], [address] , [place]. [phone] OFFICE/OUTPA TIENT VISIT, [facility], [place], [address], [place], [place], [address], [place] tel:[phone] [facility] chronic pain1 (chief complaint)E D (chief complaint)H LP (chief complaint) Male erectile dysfunction, unspecifiedChronic pain syndromeHyperlipid emia 9 Prakash Moyer. [address], [place], [place], [address] , . tel:[phone] OFFICE/OUTPA TIENT VISIT, [facility], [place], [address], [place], [place], [address], [place] [phone] [facility] chronic pain (chief complaint)B PH1 (chief complaint)E D (chief complaint)s leep apnea1 (chief complaint) Chronic pain syndromeBPH with LUTSMale erectile dysfunction, unspecifiedEmphyse ma 9 Prakash Connor [address], [place], [place], [address] , [place]. tel:[phone] OFFICE/OUTPA TIENT VISIT, [facility], [place], [address], [place], [place], [address], [place] tel:[phone] [facility] chronic pain1 (chief complaint)H LP (chief complaint) Chronic pain syndromeHyperlipid emia 9 Prakash Moyer. [address], [place], [place], [address] , [place]. [phone] Referring Provider: João Randall [address], [place], [place], [address]. tel:[phone] OFFICE/OUTPA TIENT VISIT, [facility], [place], [address], [place], [place], [address], [place] [phone] [facility] chronic pain (chief complaint)E D1 (chief complaint)C OPD1 (chief complaint)C AD (chief complaint) EmphysemaCoronary artery disease of absentee-shawnee coronary artery without angina pectorisHyperlipid emiaChronic pain syndromeMale erectile dysfunction, unspecified 9 Prakash Connor [address], [place], [place], [address] , [place]. tel:[phone] OFFICE/OUTPA TIENT VISIT, [facility], [address], [place], [place], [address], [place] tel:[phone] [facility] chronic pain1 (chief complaint)C OPD (chief complaint)t obacco1 (chief complaint)E D (chief complaint) Chronic pain syndromeEmphysemaM deisi erectile dysfunction, unspecifiedTobacco use 9 Prakash Moyer. [address], [place], [place], [address] , [place]. tel:[phone] OFFICE/OUTPA TIENT VISIT, [facility], [place], [address], [place], [place], [address], [place] tel:[phone] [facility] chronic pain (chief complaint)H LP (chief complaint)i nguinal hernia1 (chief complaint)B PH1 (chief complaint) BPH with LUTSHyperlipidemia Inguinal herniaChronic pain syndrome 9 Prakash Moyer. [address], [place], [place], [address] , [place]. tel:[phone] Referring Provider: João Randall, [address], [place], [place], [address]. tel:[phone] OFFICE/OUTPA TIENT VISIT, [facility], [address], [place], [place], [address], [place] tel:[phone] [facility] HLP (chief complaint)c hronic pain (chief complaint)i nguinal mass1 (chief complaint) Inguinal herniaChronic pain syndromeHyperlipid emia 9 Prakash Moyer. [address], [place], [place], [address] , [place]. tel:[phone] PREV VISIT, EST, 65 & OVER [facility], [address], [place], [place], [address], [place] tel:[phone] [facility] PHysical (chief complaint) Encounter for general adult medical exam w abnormal findingsBPH with LUTSHyperlipidemia Chronic pain syndromeEmphysema Jovanny-0 4-201 9 [address], [place], [place], [address] , [place]. tel:[phone] Referring Provider: Annel Frias [address], [place], [place], [address]. tel:[phone] OFFICE/OUTPA TIENT VISIT, [facility], [place], [address], [place], [place], [address], [place] tel:[phone] [facility] HLP (chief complaint)B PH (chief complaint)c hronic pain (chief complaint) BPH with LUTSChronic pain syndromeHyperlipid emiaEssential (primary) hypertension 8 Prakash Connor [address], [place], [place], [address] , [place]. tel:[phone] Referring Provider: Annel Frias [facility] A, [place], [place], [address]. tel:[phone] OFFICE/OUTPA TIENT VISIT, [facility], [place], [address], [place], [place], [address], [place] tel:[phone] [facility] BPH1 (chief complaint)C OPD1 (chief complaint)c hronic pain (chief complaint)C AD (chief complaint) EmphysemaBPH with LUTSCoronary artery disease of absentee-shawnee coronary artery without angina pectorisPolyp of colonChronic pain syndrome 8 Prakash Connor [address], [place], [place], [address] , [place]. tel:[phone] OFFICE/OUTPA TIENT VISIT, [facility], [place], [address], [place], [place], [address], [place] tel:[phone] [facility] chronic pain1 (chief complaint)B PH1 (chief complaint)c olon polyp1 (chief complaint)s leep apnea1 (chief complaint) EmphysemaBPH with LUTSChronic pain syndromePolyp of colon 8 Prakash Connor [address], [place], [place], [address] , [place]. tel: [phone] OFFICE/OUTPA TIENT VISIT, [facility], [place], [address], [place], [place], [address], [place] tel:[phone] [facility] chronic pain (chief complaint)B PH1 (chief complaint)E D (chief complaint)C OPD1 (chief complaint)b lood (chief complaint)C AD1 (chief complaint) Chronic pain syndromeBPH with LUTSEmphysemaOccul t blood in stoolCoronary artery disease of absentee-shawnee coronary artery without angina pectorisMale erectile dysfunction, unspecified 8 Prakash Moyer. [address], [place], [place], [address] , [place]. tel: [phone] OFFICE/OUTPA TIENT VISIT, [facility], [place], [address], [place], [place], [address], [place] tel:[phone] [facility] COPD1 (chief complaint)C AD1 (chief complaint)b lood stool1 (chief complaint)c hornic pain (chief complaint)H LP (chief complaint) Occult blood in stoolHyperlipidemi aEmphysemaBPH with LUTSChronic pain syndrome 8 Prakash Connor [address], [place], [place], [address] , [place]. tel: [phone] OFFICE/OUTPA TIENT VISIT, [facility], [place], [address], [place], [place], [address], [place] tel:[phone] [facility] BPH (chief complaint)c hronic pain (chief complaint)t obacco1 (chief complaint)C AD (chief complaint) BPH with LUTSChronic pain syndromeTobacco useCoronary artery disease of absentee-shawnee coronary artery without angina pectorisEncounter for screening for malignant neoplasm of colon 8 Prakash Connor [address], [place], [place], [address] , [place]. tel: [phone] Referring Provider: João Randall [address], [place], [place], [address]. tel:[phone] OFFICE/OUTPA TIENT VISIT, [facility], [place], [address], [place], [place], [address], [place] tel:[phone] [facility] COPD1 (chief complaint)t obacco1 (chief complaint)C AD1 (chief complaint)c hronic pain (chief complaint) EmphysemaCoronary artery disease of absentee-shawnee coronary artery without angina pectorisChronic pain syndromeTobacco use 8 Prakash Connor [address], [place], [place], [address] , [place]. tel:[phone] OFFICE/OUTPA TIENT VISIT, [facility], [place], [address], [place], [place], [address], tel:[phone] [facility] chronic pain (chief complaint)E D (chief complaint)H LP (chief complaint)C OPD1 (chief complaint)B PH (chief complaint) HyperlipidemiaCOPD BPH with LUTSChronic pain syndrome 0 8 Prakash Moyer. [address], [place], [place], [address] , [place]. tel:[phone] Referring Provider: João Randall, [address], [place], [place], [address]. tel:[phone] OFFICE/OUTPA TIENT VISIT, [facility], [place], [address], [place], [place], [address], [place] tel:[phone] [facility] chronic pain1 (chief complaint)t obacco1 (chief complaint)s leep apnea1 (chief complaint) Chronic pain syndromeSleep apneaTobacco use 8 Prakash Connor [address], [place], [place], [address] , [place]. tel:[phone] OFFICE/OUTPA TIENT VISIT, [facility], [place], [address], [place], [place], [address], [place] tel:[phone] [facility] chronic pain (chief complaint)H LP (chief complaint) HyperlipidemiaChro layne pain syndrome 8 Prakash Moyer. [address], [place], [place], [address] , [place]. [phone] Referring Provider: Annel Frias [address], [place], [place], [address]. tel:[phone] PREV VISIT, EST, 65 & OVER [facility], [address], [place], [place], [address], [place] tel:[phone] [facility] PHysical (chief complaint) Encounter for general adult medical exam w abnormal findingsCOPDSleep apneaChronic pain syndrome 8 Prakash Moyer. [address], [place], [place], [address] , [place]. [phone] Referring Provider: Annel Frias [address], [place], [place], [address]. tel:[phone] OFFICE/OUTPA TIENT VISIT, [facility], [place], [address], [place], [place], [address], [place] tel:[phone] [facility] COPD (chief complaint)c hronic pain1 (chief complaint) COPDChronic pain syndrome 7 Prakash Moyer. [address], [place], [place], [address] , [place]. [phone] Referring Provider: Annel Frias [address], [place], [place], [address]. tel:[phone] OFFICE/OUTPA TIENT VISIT, [facility], [place], [address], [place], [place], [address], [place] tel:[phone] [facility] COPD1 (chief complaint)B PH (chief complaint)B PH1 (chief complaint)b ack pain1 (chief complaint)H LP (chief complaint) HyperlipidemiaLow back painCOPDSign involving the genitourinary system 7 Prakash Moyer. [address], [place], [place], [address] , [place]. [phone] Referring Provider: João Randall, [address], [place], [place], [address]. tel:[phone] OFFICE/OUTPA TIENT VISIT, [facility], [place], [address], [place], [place], [address], [place] [phone] [facility] chornic pain (chief complaint) Chronic pain syndrome Sam-0 7 Prakash Moyer. [address], [place], [place], [address] , [place]. tel: [phone] Referring Provider: Annel Frias [address], [place], [place], [address]. tel:[phone] PREV VISIT, EST, AGE 40-64 [facility], [address], [place], [place], [address], [place] [phone] [facility] back pain1 (chief complaint)h ep C (chief complaint)P Hysical (chief complaint) Chronic pain syndromeEncounter for screening for other viral diseasesEncounter for general adult medical exam w abnormal findings Sep- 7 Prakash Moyer. [address], [place], [place], [address] , [place]. tel:[phone] Referring Provider: Annel Frias [address], [place], [place], [address]. tel:[phone] OFFICE/OUTPA TIENT VISIT, [facility], [place], [facility] [address], [place], [place], [address], [place] tel:[phone] [facility] back pain1 (chief complaint)E D (chief complaint)h ep c (chief complaint)s leep apnea1 (chief complaint) Low back painOther male erectile dysfunctionSleep apneaEncounter for screening for other viral diseases Aug-3 7 Prakash Moyer. [address], [place], [place], [address] , [place]. tel:[phone] Referring Provider: Annel Frias [address], [place], [place], [address]. tel:[phone] OFFICE/OUTPA TIENT VISIT, [facility], [place], [address], [place], [place], [address], [place] tel:[phone] [facility] COPD1 (chief complaint)c hronic pain1 (chief complaint)E D1 (chief complaint) Other male erectile dysfunctionCOPDChr onic pain syndrome 7 Prakash Moyer. [address], [place], [place], [address] , [place]. tel:[phone] Referring Provider: João Randall, [address], [place], [place], [address]. tel:[phone] OFFICE/OUTPA TIENT VISIT, [facility], [place], [address], [place], [place], [address], [place] tel:[phone] [facility] sleep apnea (chief complaint)c hronic pain (chief complaint)H LP (chief complaint)c opd (chief complaint) Tobacco useSleep apneaHyperlipidemi aChronic pain syndrome 7 Prakash Moyer. [address], [place], [place], [address] , [place]. tel:[phone] Referring Provider: Annel Frias [address], [place], [place], [address]. tel:[phone] OFFICE/OUTPA TIENT VISIT, [facility], [place], [address], [place], [place], [address], [place] tel:[phone] [facility] SLEEP APNEA1 (chief complaint)H LP (chief complaint)b ack pain1 (chief complaint) HyperglycemiaHyper lipidemiaSleep apneaChronic pain syndrome 7 Prakash Moyer. [address], [place], [place], [address] , [place]. tel:[phone] Referring Provider: Annel Frias [address], [place], [place], [address]. tel:[phone] OFFICE/OUTPA TIENT VISIT, [facility], [place], [address], [place], [place], [address], [place] tel:[phone] [facility] back pain1 (chief complaint)p rostate nodule (chief complaint) Low back painBenign neoplasm of prostate 6 Prakash Moyer. [address], [place], [place], [address] , . tel:[phone] Referring Provider: Annel Frias [address], [place], [place], [address]. tel:[phone] OFFICE/OUTPA TIENT VISIT, [facility], [place], [address], [place], [place], [address], [place] tel:[phone] [facility] back pain1 (chief complaint)E D1 (chief complaint)C AD (chief complaint)s leep apnea1 (chief complaint) Chronic pain syndromeSleep apneaHyperlipidemi aOther male erectile dysfunction 6 Prakash Connor [address], [place], [place], [address] , [place]. tel:[phone] Referring Provider: Annel Frias [address], [place], [place], [address]. tel:[phone] OFFICE/OUTPA TIENT VISIT, [facility], [place], [address] [place] [address], [place] tel:[phone] [facility] back pain1 (chief complaint) Chronic pain syndrome 6 Prakash Moyer. [address], [place], [place], [address] , [place]. tel:[phone] Referring Provider: Annel Frias [address], [place], [place], [address]. tel:[phone] OFFICE/OUTPA TIENT VISIT, [facility], [place], [address] [place], [address], [place] tel:[phone] [facility] COPD (chief complaint)c hronic pain (chief complaint)H LP (chief complaint)E D (chief complaint) Chronic pain syndromeOther male erectile dysfunctionCOPDHyp erlipidemia 6 Randall João. [address], [place], [place], [address] , [place]. tel:[phone] Referring Provider: Annel Frias [address], [place], [place], [address]. tel:[phone] OFFICE/OUTPA TIENT VISIT, [facility], [place], [address], [place], [place], [address], [place] tel:[phone] [facility] back pain1 (chief complaint)n evus (chief complaint) Low back painNevus, non-neoplastic 6 Prakash Moyer. [address], [place], [place], [address] , [place]. [phone] Referring Provider: Annel Frias [address], [place], [place], [address]. tel:[phone] OFFICE/OUTPA TIENT VISIT, [facility], [place], [address], [place], [place], [address], [place] tel:[phone] [facility] back pain1 (chief complaint)s leep apnea (chief complaint)n evus1 (chief complaint) Chronic pain syndromeSleep apneaNevus, non-neoplastic 6 Prakash Moyer. [address], [place], [place], [address] , [place]. [phone] Referring Provider: Annel Frias [address], [place], [place], [address]. tel:[phone] OFFICE/OUTPA TIENT VISIT, [facility], [place], [address], [place], [place], [address], [place] tel:[phone] [facility] chronic pain (chief complaint)E D (chief complaint)p rostate nodule (chief complaint) Chronic pain syndromeOther male erectile dysfunctionBenign neoplasm of prostate 6 Prakash Moyer. [address], [place], [place], [address] , [place]. tel:[phone] Referring Provider: João Randall [address], [place], [place], [address]. tel:[phone] OFFICE/OUTPA TIENT VISIT, EST [facility], [address], [place], [place], [address], [place] tel:[phone] [facility] Medicine chrnoic pain (chief complaint)g lucose (chief complaint)H LP (chief complaint)p rostate nodule (chief complaint) Chronic pain syndromeHyperglyce miaHyperlipidemiaV itamin D deficiency, unspecified 6 Prakash Moyer. [address], [place], [place], [address] , [place]. tel:[phone] Referring Provider: Annel Frias [address], [place], [place], [address]. tel:[phone] PREV VISIT, EST, AGE 40-64 [facility], [address], [place], [place], [address], [place] tel:[phone] [facility] PHysical (chief complaint) Encounter for general adult medical exam w abnormal findingsCOPDChroni c pain syndromeHyperlipid emia 6 Prakash Moyer. [address], [place], [place], [address] , [place]. tel:[phone] Referring Provider: Annel Frias [address], [place], [place], [address]. tel:[phone] OFFICE/OUTPA TIENT VISIT, EST [facility], [address], [place], [place], [address], [place] tel:[phone] [facility] back pain (chief complaint) LumbagoOther and unspecified hyperlipidemia 4 Prakash Moyer. [address], [place], [place], [address] , [place]. tel:[phone] Referring Provider: Annel Frias [address], [place], [place], [address]. tel:[phone] OFFICE/OUTPA TIENT VISIT, [facility], [place], [address], [place], [place], [address], [place] tel:[phone] [facility] back pain (chief complaint)C OPD (chief complaint) COPDLumbago 4 Prakash Moyer. [address], [place], [place], [address] , [place]. [phone] Referring Provider: Annel Frias [address], [place], [place], [address]. tel:[phone] OFFICE/OUTPA TIENT VISIT, [facility], [place], [address], [place], [place], [address], [place] tel:[phone] [facility] back pain (chief complaint)h earing loss (chief complaint) LumbagoCentral hearing lossOther and unspecified hyperlipidemia 4 Prakash Moyer. [address], [place], [place], [address] , [place]. tel:[phone] Referring Provider: Annel Frias [address], [place], [place], [address]. tel:[phone] OFFICE/OUTPA TIENT VISIT, [facility], [place], [address], [place], [place], [address], [place] tel:[phone] [facility] back pain (chief complaint)C OPD (chief complaint) LumbagoCOPD 4 Prakash Moyer. [address], [place], [place], [address] , [place]. [phone] Referring Provider: Annel Frias [address], [place], [place], [address]. tel:[phone] OFFICE/OUTPA TIENT VISIT, [facility], [place], [address], [place], [place], [address], [place] tel:[phone] [facility] back pain (chief complaint)C OPD (chief complaint) LumbagoCOPD 4 Prakash Moyer. [address], [place], [place], [address] , [place]. [phone] Referring Provider: João Randall, [address], [place], [place], [address]. tel:[phone] OFFICE/OUTPA TIENT VISIT, [facility], [place], [address], [place], [place], [address], tel:[phone] [facility] back pain (chief complaint)C OPD (chief complaint) Osteoarthritis, GeneralizedLumbago COPD 4 Prakash Moyer. [address], [place], [place], [address] , [place]. tel:[phone] Referring Provider: Annel Frias [address] [facility] [address], [place], [place], [address]. tel:[phone] OFFICE/OUTPA TIENT VISIT, [facility], [place], [address], [place], [place], [address], [place] tel:[phone] [facility] HLP (chief complaint)v itamin d' (chief complaint)b ack pain (chief complaint) Other and unspecified hyperlipidemiaUnsp ecified vitamin d deficiencyOsteoart hritis, GeneralizedLumbago 4 Prakash Moyer. [address], [place], [place], [address] , [place]. [phone] Referring Provider: Annel Frias [address], [place], [place], [address]. tel:[phone] PREV VISIT, NEW, AGE 40-64 [facility], [address], [place], [place], [address], [place] tel:[phone] [facility] PHysical (chief complaint) Routine Medical ExamRoutine Medical Exam 4 Prakash Moyer. [address], [place], [place], [address] , [place]. tel:[phone] Family History Family Member Type Diagnosis Age At Onset Mother Problem (finding) liver cirrhosis Brother Problem (finding) Alive and well Father Problem (finding) of pneumonia Payers Payer name Insurance type Covered libertarian ID George arevalo(s) [facility] [id number] Social History Type Description Quantity Date Captured Comments Alcohol Use Details No Caffeine Use Details Unknown Tobacco Use Status Ex-cigarette smoker 025 Smoking Status Former smoker Sex Male Vital Signs Date / Time: Height Weight BMI Pulse Rate Blood Pressure Temperature Respiratory Rate Body Surface Area Head Circumference BMI percentile Pulse Ox Inhaled Ox 11:58 AM 71.00 in 174.80 lbs 24.3 8 kg/m eter (2) 61 /min 120/70 mm[Hg] 98.3 F 16 /min Chief Complaint And Reason For Visit From encounter dated '07/13/2024 11:52'. physical (chief complaint). Description: Pt needs annual physical Pt has COPD pt is on brztri and he is doing ok Pt has BPH with LUTS he is on proscar and flomax and he sees urology .Pt has chronic low back pain due to DDD Pt is on neurontin and norco PRN and doing ok. 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 Pt notices several times per week randomly Pt denies any vision change. Pt denies any nausea, vomiting pt had lab done which showed iron deficiency anemia again Pt denies any bleeding Plan Of Treatment Date Type Action Status Goal Special diet education compl eted Goal Tobacco cessation counseling completed Goal Tobacco cessation counseling completed Goal Tobacco cessation counseling completed Goal Tobacco cessation counseling completed Goal Tobacco cessation counseling completed Goal Tobacco cessation counseling completed Goal Tobacco cessation counseling completed Goal Tobacco cessation counseling completed Goal Special diet education compl eted Goal Tobacco cessation counseling completed Goal Tobacco cessation counseling completed Referral Ordered: Hematology (related to Iron deficiency anemia) ordered Referral Ordered: Ino Oshea -[facility] : Internal Medicine : Gastroenterology (related to Iron deficiency anemia) ordered Referral Ordered: CT ANGIOGRAPHY, HEAD ordered Referral Ordered: Referrals: Hematology ordered Referral Ordered: Otolaryngology (related to Conductive hearing loss, bilateral) ordered Referral Ordered: Referrals: Otolaryngology. Evaluate and treat ordered Referral Ordered: Ino Oshea -[facility] : Internal Medicine : Gastroenterology (related to Angiodysplasia of stomach and duodenum with bleeding) ordered Referral Ordered: Physical Therapy (related to Abnormality of gait) ordered Referral Ordered: Ivory Lucero -[facility] : Neurological Surgery (related to Chronic pain syndrome) ordered Referral Ordered: Ino Oshea -[facility] : Internal Medicine : Gastroenterology (related to Iron deficiency anemia) ordered Referral Ordered: Hematology (related to Iron deficiency anemia) ordered Referral Referred To: Ino Oshea [facility] [place], [place], [phone] Ordered: Referrals: [facility]opathic Physicians : Internal Medicine : Gastroenterology. Ino Oshea. Evaluate and treat ordered Referral Referred To: Ivory Lucero [address] [facility] [address] [place], [phone] Ordered: Referrals: [facility]opathic Physicians : Neurological Surgery. Ivory Lucero. Evaluate and treat ordered Referral Ordered: Charles Villegas -[facility] : Psychiatry & Neurology : Neurology (related to Stroke) ordered Referral Referred To: Charles Villegas [address], [phone] Ordered: Referrals: [facility] : Psychiatry & Neurology : Neurology. Charles Villegas. Evaluate and treat ordered Referral Ordered: Physical Therapy (related to Sleep apnea) ordered Referral Ordered: HEARING TEST PURE TONE AUDIOMETRY, AIR ordered Referral Ordered: Pain Medicine (related to Chronic pain syndrome) ordered Referral Ordered: Referrals: Pain Medicine. Evaluate and treat ordered Referral Referred To: Bentley Jimenez MD [address]
[place], [address] Ordered: Referrals: Richard. Jimenez MD Evaluate and treat ordered Referral Ordered: Physical Therapy (related to Other spondylosis, lumbar region) ordered Referral Referred To: Physical Therapy Ordered: Referrals: Physical Therapy. Evaluate and treat ordered Referral Ordered: Hematology (related to Leukocytosis) ordered Referral Ordered: LUMBAR XRAY AP AND LAT ONLY ordered Referral Ordered: Referrals: Hematology. Evaluate and treat ordered Referral Referred To: Andrew Meyers MD [address] [place], [place], [address] Ordered: Referrals: Andrew Meyers MD Evaluate and treat ordered Referral Referred To: Harpreet Ling MD [address] [facility]
[address] [place], [place], [address] Ordered: Referrals: Harpreet Ling MD. Evaluate and treat ordered Referral Ordered: SYD VICENTE -[facility] : Surgery (related to BPH with LUTS) ordered Referral Referred To: SYD VICENTE [address] [place], [place], [phone] Ordered: Referrals: [facility]opathic Physicians : Surgery. SYD VICENTE. Evaluate and treat ordered Referral Ordered: COLONOSCOPY AND BIOPSY ordered Referral Ordered: CT THORAX W/O DYE ordered Referral Ordered: Lalit Crews (related to Nevus, non-neoplastic) ordered Referral Referred To: Lalit Crews [place] [id number] [place], [phone] Ordered: Referrals: Lalit Crews. Evaluate and treat ordered Referral Ordered: HEARING TEST, PURE TONE, AIR ordered Referral Referred To: Physical Therapy Ordered: Referral: Physical Therapy. ordered Referral Ordered: Neurosurgery (related to Lumbago) ordered Referral Ordered: Referral: Neurosurgery. Evaluate and treat. ordered Referral Ordered: CHEST X-RAY PA/LAT TWO-VIEWS ordered Referral Ordered: MRI LUMBAR SPINE W/O DYE ordered Referral Ordered: Urology ordered Referral Ordered: Referral: Urology. ordered Referral Ordered: HAND XRAY, TWO VIEW ordered Appointment Fer Benoit BOOKED History Of Present Illness Encounter Date Complaint History Of Prese nt Illness physical Pt needs annual physical Pt has COPD pt is on brztri and he is doing ok Pt has BPH with LUTS he is on proscar and flomax and he sees urology .Pt has chronic low back pain due to DDD Pt is on neurontin and norco PRN and doing ok. 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 Pt notices several times per week randomly Pt denies any vision change. Pt denies any nausea, vomiting pt had lab done which showed iron deficiency anemia again Pt denies any bleeding afib Pt has paroxymal afib. Pt is seeing cardiology and he is back on xarelto. he will do cardiac echo and holter and stress test soon he denies any chest pain pain Pt has chronic s evere low back pain Pt has been having worsening low back pain Pt c/o right sciatica and some leg neuropathy Pt feels bilateral leg weakness ,Pt is ambulating with cane Pt had back injection but did not work. Pt has very poor gait. Pt ambulate with cane. Pt takes neurontin and norco PRN for pain. he has neurostimulator installed recently and is helping his back pain. iron pt has iron defi ciency anemia due to Gi bleeding in the past. Pt received iron infusion last year Pt denies any bleeding BPH Additional infor mation: Pt has BPH .Pt sees urology Pt is on flomax cialis and also proscar .Pt sees urology .Pt doing ok. hearing loss1 Pt has chronic h earing loss. He saw new ENT and will get new hearing aid now He was told that his previous hearing aid did not fit Afib Pt has paroxymal afib. Pt saw cardiology and he is on xarelto sample now due to expense GERD1 Pt has chronic G ERD Pt takes protonix and doing well. Pt needs it refilled pain Pt has chronic s evere low back pain Pt has been having worsening low back pain Pt c/o right sciatica and some leg neuropathy Pt feels bilateral leg weakness ,Pt is ambulating with cane Pt had back injection but did not work. Pt has very poor gait. Pt ambulate with cane. Pt takes neurontin and norco PRN for pain. he has neurostimulator installed recently and is helping his back pain. COPD1 Pt has COPD Pt i s on breztri which works well for him, vs symbicort or incruse .Pt feels less sob. afib pt has paroxymal afib. pt is on xarelto but he is in [employer] and he cannot afford it this month Pt does see cardiology. pain Pt has chronic s evere low back pain Pt has been having worsening low back pain Pt c/o right sciatica and some leg neuropathy Pt feels bilateral leg weakness ,Pt is ambulating with cane Pt had back injection but did not work. Pt has very poor gait. Pt ambulate with cane. Pt takes neurontin and norco PRN for pain. he has neurostimulator installed recently and is helping his back pain. Pt has severe arthritis pain both hand. Pt wants some arthritis medication. pt states that celebrex is helping with hand pain pain Pt has chronic s evere low back pain Pt has been having worsening low back pain Pt c/o right sciatica and some leg neuropathy Pt feels bilateral leg weakness ,Pt is ambulating with cane Pt had back injection but did not work. Pt has very poor gait. Pt ambulate with cane. Pt takes neurontin and norco PRN for pain. he has neurostimulator installed recently and is helping his back pain. Pt has severe arthritis pain both hand. Pt wants some arthritis medication. pt states that celebrex is helping with hand pain COPD1 Pt has COPD and he is on symbicort Pt still feels sob, He just qualified for home oxygen and he will do chest CT soon by pulmonary. Pt has difficulty walking far due to sob. hearing loss1 Pt has chronic b ilateral hearing loss. Pt had hearing study done one year ago and he received hearing aid but did not work. Pt denies any ear pain pain Pt has chronic s evere low back pain Pt has been having worsening low back pain Pt c/o right sciatica and some leg neuropathy Pt feels bilateral leg weakness ,Pt is ambulating with cane Pt had back injection but did not work. Pt has very poor gait. Pt ambulate with cane. Pt takes neurontin and norco PRN for pain. he has neurostimulator installed recently and is helping his back pain. Pt has severe arthritis pain both hand. Pt wants some arthritis medication pain Pt has chronic s evere low back pain Pt has been having worsening low back pain Pt c/o right sciatica and some leg neuropathy Pt feels bilateral leg weakness ,Pt is ambulating with cane Pt had back injection but did not work. Pt has very poor gait. Pt ambulate with cane. Pt takes neurontin and norco PRN for pain. he has neurostimulator installed recently and is helping his dimple pain COPD1 Pt has COPD Pt i s on symbicort now by pulmonary and he needs albuterol refilled. He just had PFT done yesterday pain Pt has chronic s evere low back pain Pt has been having worsening low back pain Pt c/o right sciatica and some leg neuropathy Pt feels bilateral leg weakness ,Pt is ambulating with cane Pt had back injection but did not work. Pt has very poor gait. Pt ambulate with cane. Pt takes neurontin and norco PRN for pain. he has neurostimulator installed recently and is helping his dimple pain BPH1 Pt has BPH with LUTS. Pt is on flomax and also cialis and proscar. Pt still has some urinary difficulty but seems better with the addition of proscar. Pt saw urology recently and he was told that he is on all right medication and he should continue above and he no longer need PSA testing due to his age afib1 Pt has paroxymal afib with history of CVA. Pt has not seen cardiology for a while Pt is on xarelto Pt denies any bleeding Pt denies any chest pain or palpitation BPH1 Pt has BPH with LUTS. Pt is on flomax and also cialis and proscar. Pt still has some urinary difficulty but seems better with the addition of proscar. Pt has masha with urology next month back pain1 Pt has chronic s evere low back pain Pt has been having worsening low back pain Pt c/o right sciatica and some leg neuropathy Pt feels bilateral leg weakness ,Pt is ambulating with cane Pt had back injection but did not work. Pt has very poor gait. Pt ambulate with cane. Pt takes neurontin and norco PRN for pain. he has neurostimulator installed recently and he is having some post op pain as well. GERD1 Pt has chronic G ERD Pt is on protonix and doing ok. Pt has HH Pt denies any dysphasia or abd pain pain Pt has chronic s evere low back pain Pt has been having worsening low back pain Pt c/o right sciatica and some leg neuropathy Pt feels bilateral leg weakness ,Pt is ambulating with cane Pt saw neurosurgery recently and he had some x ray and showed worsening disc disease around L spine area. Pt had back injection but did not work. Pt has very poor gait. Pt ambulate with cane. Pt takes neurontin and norco PRN for pain. He has masha for neurostimulator placement next week BPH1 Pt has BPH with LUTS. Pt is on flomax and also cialis daily and he started proscar last month due to persistent symptoms. pt sees urology Pt states that he has more difficulty with urination recently with slow stream. , Pt also has frequent urination at night as well. Pt c/o dribbling. His urinary symptoms seem better with the addition of proscar. Pt has not made masha with urology yet. HLP Pt has HLP Pt ta kes lipitor pt denies any myalgia HTN Pt has mild HTN Pt takes losartan and his bp is stable .Pt needs refilled. pain Pt has chronic s evere low back pain Pt has been having worsening low back pain Pt c/o right sciatica and some leg neuropathy Pt feels bilateral leg weakness ,Pt is ambulating with cane Pt saw neurosurgery recently and he had some x ray and showed worsening disc disease around L spine area. Pt had back injection but did not work. Pt is doing PT and he will have neurostimulator installed soon. Pt has very poor gait. Pt ambulate with cane. Pt has difficulty using manual wheel chair due to weak upper arm. Pt just got his PMD at home. Pt takes neurontin and norco PRN for pain. Pt did neurostimulator trial which worked great for him. He has much less pain He will go back for permanent stimulator soon. His masha for neurostimulator in 4 weeks BPH1 Pt has BPH with LUTS. Pt is on flomax and also cialis daily. pt sees urology Pt states that he started to have more difficulty with urination recently with slow stream lately, Pt also has frequent urination at night as well. Pt c/o dribbling. Pt wonders if he can take more than one flomax per day. Pt denies any dysuria, burning, urgency pain Pt has chronic s evere low back pain Pt has been having worsening low back pain Pt c/o right sciatica and some leg neuropathy Pt feels bilateral leg weakness ,Pt is ambulating with cane Pt saw neurosurgery recently and he had some x ray and showed worsening disc disease around L spine area. Pt had back injection but did not work. Pt is doing PT and he will have neurostimulator installed soon. Pt has very poor gait. Pt ambulate with cane. Pt has difficulty using manual wheel chair due to weak upper arm. Pt just got his PMD at home. Pt takes neurontin and norco PRN for pain. Pt did neurostimulator trial which worked great for him. He has much less pain He will go back for permanent stimulator soon pain Pt has chronic s evere low back pain Pt has been having worsening low back pain Pt c/o right sciatica and some leg neuropathy Pt feels bilateral leg weakness ,Pt is ambulating with cane Pt saw neurosurgery recently and he had some x ray and showed worsening disc disease around L spine area. Pt had back injection but did not work. Pt is doing PT and he will have neurostimulator installed soon. Pt has very poor gait. Pt ambulate with cane. Pt has difficulty using manual wheel chair due to weak upper arm. Pt just got his PMD at home. Pt takes neurontin and norco PRN for pain emphysema1 Pth as severe em physema. Pt uses advair and incruse and he rarely needs to use albuterol. Pt denies any hemoptysis, worsening sob or cough .Pt no longer smoking Pt had negative LDCT physical Pt needs annual physical Pt has history of CVa due to paroxymal afib without any residual weakness. Pt sees cardiology and neurology. Pt denies any headache. Pt has HTN Pt takes losartan and his bp is stable. Pt has BPH with LUTS. Pt takes flomax and doing ok Pt sees urology. Pt has chronic neck and back pain Pt takes norco and neurontin and doing ok. Pt has COPD .Pt takes incruse and advair he rarely uses albuterol. He has chronic low back pain with unsteady gait. pt is seeing neurosurgery and she will have neurostimulator placed soon. Pt ambulate with walker and he has electric scooter at home. 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 He denies any bleeding pain Pt has chronic s evere low back pain Pt has been having worsening low back pain Pt c/o right sciatica and some leg neuropathy Pt feels bilateral leg weakness ,Pt is ambulating with cane Pt saw neurosurgery recently and he had some x ray and showed worsening disc disease around L spine area. Pt had back injection but did not work. Pt is doing PT and he will have neurostimulator installed soon. Pt has very poor gait. Pt ambulate with cane. Pt has difficulty using manual wheel chair due to weak upper arm BPH1 Pt has BPH with LUTS. Pt takes cialis and flomax and doing ok. Pt states that his urinary symptoms are well controlled. pain1 Pt has chronic s evere low back pain Pt has been having worsening low back pain Pt c/o right sciatica and some leg neuropathy Pt feels bilateral leg weakness ,Pt is ambulating with cane Pt saw neurosurgery recently and he had some x ray and showed worsening disc disease around L spine area. Pt will do back injection soon per neurosurgery. 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 Pt had benign EGD without shepard pt is on protonix/ Pt has daily GERD ambulation1 Pt has ambulatio n issue. Pt has to ambulate with cane. Pt states that numotion does not do electric scooter pneumonia1 Pt had pneumonia ,Pt is s/p abx treatment .Pt denies any cough or hemoptysis Pt had repeat chest x ray which was normal pain Pt has chronic s evere low back pain Pt has been having worsening low back pain Pt c/o right sciatica and some leg neuropathy Pt feels bilateral leg weakness ,Pt is ambulating with cane Pt has masha with neurosurgery in one months. Pt still has not got the scooter yet pneumonia1 Pt has history o f pneumonia Pt denies any chest pain or cough. Pt denies any worsening sob AVM Pt has iron defi ciency anemia and he just received iron infusion x 2 which made him feel worse including weird taste ins his mouth Pt denies any bleeding Pt had negative EGD and colonoscopy but small bowel capsule study showed two small AVM in jejunum. Pt will have EGD with ablation tomorrow pain Pt has chronic s evere low back pain Pt has been having worsening low back pain Pt c/o right sciatica and some leg neuropathy Pt feels bilateral leg weakness ,Pt is ambulating with cane Pt has masha with neurosurgery in one months. 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 pain Pt has chronic s evere low back pain Pt has been having worsening low back pain Pt c/o right sciatica and some leg neuropathy Pt feels bilateral leg weakness ,Pt is ambulating with cane Pt has masha with neurosurgery in 2 months. Pt is waiting for home assessment for PMD pain Pt has chronic s evere low back pain Pt has been having worsening low back pain Pt c/o right sciatica and some leg neuropathy Pt feels bilateral leg weakness ,Pt is ambulating with cane Pt has masha with neurosurgery in 3 months. Pt wants a scooter. Pt states that he feels too weak to push the manual wheelchair iron Pt has iron defi ciency anemia. Pt saw hematology and he will receive iron infusion next week Pt also had small capsule study but result not available yet. back pain1 Pt has chronic s evere low back pain Pt has been having worsening low back pain Pt c/o right sciatica and some leg neuropathy Pt feels bilateral leg weakness ,Pt is ambulating with cane GERD1 Pt has GERD with esophagitis. Pt is on protonix Pt needs refill. Pt doing ok anemia1 pt has iron defi ciency anemia Pt had benign EGD and colonoscopy recently Pt did have positive fecal globin Pt has high platelet. Pt does feel fatigue Pt feels very weak back pain Additional infor mation: Pt has chronic low back pain with neuropathy. Pt takes norco and neurontin. Pt denies any loss of bowel or bladder control or saddle area paresthesia. Pt states that his low back pain is getting worse with neuropathy to both legs. BPH Additional infor mation: pt has BPH with LUTS pt saw urology last month and was told to continue flomax. Pt states that urology did not check his prostate.. afib Pt has paroxymal afib. Pt saw cardiology recently and was told to continue xarelto. Pt denies any chest pain or palpitation anemia1 Pt has mild anem ia Pt denies any blood loss. pain Pt has chronic l ow back pain with neuropathy. Pt takes norco and neurontin. Pt denies any loss of bowel or bladder control or saddle area paresthesia emphysema1 Pt has severe em physema. Pt uses incruse and advair and he is on 24 hour oxygen now and he uses neb PRn for sob. Pt feels worsening sob lately pt saw pulmonary 3 days ago and was told to continue current management. Pt denies any cough HLP Pt has HLP Pt ta kes lipitor Pt denies any myalgia HTN Pt has hTN Pt ta kes losartan and his bp is stable. Pt denies any chest pain. Pt has paroxymal afib Pt is on xarelto Pt sees cardiology .Pt denies any palpitation Pt had holter done recently COPD Pt has emphysema . Pt is on incruse and advair Pt is night time oxygen. Pt has masha with pulmonary next week. Pt uses albuterol neb PRN. Pt denies any fever, chill chest pain, worsening sob polyp1 Pt had colonosco py done which showed tubular adenoma ,Pt denies any GI bleeding pain Pt has chronic l ow back pain with neuropathy. Pt takes norco and neurontin. Pt denies any loss of bowel or bladder control or saddle area paresthesia GERD1 Pt has chronic G ERD. EGD showed reflux esophagitis and HH Pt doing ok with protonix Pt denies any abd pain or GERD while on protonix. COPD1 Pt has COPD. Pt is on incruse and advair and he recently was discharged from hospital recently for pneumonia and he was given albuterol neb machine but he never received albuterol neb solutions Pt denies any cough, hemoptysis, acute sob. etc pain Pt has chronic l ow back pain with neuropathy. Pt takes norco and neurontin. Pt denies any loss of bowel or bladder control or saddle area paresthesia. He only received partial norco from pharmacy due to new insurance. Pt is on neurontin. pneumonia1 Pt denies any ch est pain, cough or hemoptysis Pt had chest x ray done but result not available today COPD1 Pt has emphysema ,Pt started advair last month and he is on incruse and he feels better in terms of breath. Pt denies any hemoptysis, worsening sob or cough afib Pt has paroxsyma l afib. Pt is on xarelto. Pt denies any chest pain or palpitation Pt has masha with cardiology this wednesday pain Pt has chronic l ow back pain with neuropathy. Pt takes norco and neurontin. Pt denies any loss of bowel or bladder control or saddle area paresthesia pain Pt has chronic l ow back pain with neuropathy. Pt takes norco and neurontin. pt needs refill of neurontin anemia1 Pt is anemic Pt had positive fecal globin Pt will have EGD and colonoscopy in two weeks pneumnia1 Pt had atypical pneumonia recently and he was admitted to hospital. He had negative COVID and influenza and legionella testing. Pt was treated with abx and steroid and he is doing better now Pt denies any chest pain or sob COPD pt has severe em physema Pt is on incruse but he is out. Pt feels sob frequently especially with exertion lethargy1 Pt feels very le thargic and also sob for 2-3 days. Pt states that he feels very winded with any physical activity. Pt feels extremely weak overall Pt state that he feels that his leg gives out all the time and he is about to fall all the time Pt has been ambulating with cane Pt denies any fever, chest pain. Pt denies any calf pain. According to his he had some fever as high as 101 last night . pain Pt has chronic n caroline and back pain. Pt denies any worsening pain, Pt denies any loss of bowel or bladder control. Pt takes norco and neurontin and doing ok. Pt denies any saddle area paresthesia. hand pain1 Pt c/o bilateral hand and knuckle pain with swelling Pt denies any paresthesia. Pt denies any injury afib Pt has history o f proximal afib. Pt denies any chest pain, sob. Pt is on xarelto. Pt is seeing cardiology and he received a letter for annual cardiac stress test and also PFt. pt just had LDCT done but result not available yet. anemia1 Pt has anemia an d fecal positive. Pt denies any tomas bleeding GERD Pt has been havi ng GERD symptoms. Pt doing much better now with protonix Pt denies any nausea, vomiting, early satiety pain1 Pt has chronic n caroline and back pain. Pt denies any worsening pain, Pt denies any loss of bowel or bladder control. Pt takes norco and neurontin and doing ok. Pt denies any saddle area paresthesia phos Pt has history o f high phos Repeat phos is ok along with PTH. Pt does have low d. His renal function is ok BPH Pt has BPH with LUTS. Pt doing well with cialis Pt sees urology. Pt needs cialis refilled. Pt saw urologist and was told everything is fine and he supposes to follow up in one year. Pt is on flomax and cialis anemia1 Pt has anemia an d high platelet. Pt denies any bleeding. Pt denies any fatigue or dizziness. GERD Pt has been havi ng GERD recently and he has been taking rolaids. Pt denies any abd pain. nausea, vomiting pain Pt has chronic n caroline and back pain Pt denies any worsening pain .Pt denies any loss of bowel or bladder control. pain pt has chronic l ow back pain without tomas sciatica or any leg numbness or tingling Pt denies any loss of bowel or bladder control. Pt has rather severe low back pain and stiffness. He feels worsening pain in the morning after sleep all night . He takes norco and neurontin and flexeril for pain. Pt denies any saddle area paresthesia, Pt also takes mobic PRN for pain as well. Pt denies any GERD. pt was evaluated by neurosurgery and then referred to pain management but he has not followed up with pain management. BPH1 Pt has BPH with LUTS. Pt takes flomax and also cialis which used to work well but not anymore. Pt notices slow stream and dribbling and some urgency. Pt sees urology but has not seen urology for one year gait1 Pt has chronic b ack and neck pain and he has poor gait due to pain and he has difficulty ambulating very far at home. Pt was evaluated by neurosurgeon and was told no surgical option now. WBC Pt has history o f leukocytosis. Pt denies any fever, Pt was evaluated by hematology and was told ok hyperkalemic1 Pt has high KCL and high phos. Pt denies any chest pain, palpitation, Pt denies any weakness. Pt has not done lab yet stroke1 Pt is s/p stroke due to paroxymal afib. Pt is on xarelto. Pt is seeing cardiology. Pt missed his masha with neurology. Pt denies any acute neurological deficit pain pt has chronic l ow back pain without tomas sciatica or any leg numbness or tingling Pt denies any loss of bowel or bladder control. Pt has rather severe low back pain and stiffness. He feels worsening pain in the morning after sleep all night . He takes norco and neurontin and flexeril for pain. Pt denies any saddle area paresthesia, Pt also takes mobic PRN for pain as well. Pt denies any GERD. pt was evaluated by neurosurgery and then referred to pain management but he has not followed up with pain management. pain pt has chronic l ow back pain without tomas sciatica or any leg numbness or tingling Pt denies any loss of bowel or bladder control. Pt has rather severe low back pain and stiffness. He feels worsening pain in the morning after sleep all night . He takes norco and neurontin and flexeril for pain. Pt denies any saddle area paresthesia pain pt has chronic l ow back pain without tomas sciatica or any leg numbness or tingling Pt denies any loss of bowel or bladder control. Pt has rather severe low back pain and stiffness. He feels worsening pain in the morning after sleep all night . He takes norco and neurontin and flexeril for pain. Pt denies any saddle area paresthesia BPH1 Pt has BPH with LUTS. pt is seeing urology and he is on flomax now. Pt has been having difficulty with urination with dribbling and slow stream as well recently. pt has been going frequently. Pt has some urgency. Pt started cialis 5 mg daily since 3 days ago and he notices significant improvement of his urinary symptoms .Pt denies any dizziness COVID Pt had COVID pne umonia recently. Pt denies any sob or cough or fever or chest pain. His repeat chest x ray is clear now BPH Pt has BPH with LUTS. pt is seeing urology and he is on flomax now. Pt has been having difficulty with urination with dribbling and slow stream as well recently. pt has been going frequently. Pt has some urgency COVID1 Pt has COVID pne umonia recently with respiratory failure. Pt is fully vaccinated without boosters .Pt denies any sob or cough or fever. He feels fine now. Pt did not receive monoclonal antibody. HTN Pt has HTN Pt ta kes losartan and his bp is borderline high. Pt denies any chest pain or headache or dizziness fatigue1 Pt feels very fa tigue with mild productive cough and his oxygen level was 85% this morning. Pt feels extremely lack of energy and he just feels malaise. Pt denies any fever, Pt feels slightly sob with any physical exertion. His current oxygen level is between 88-90 %. His is also sick with similar symptoms. Pt is recovering from pneumonia. pneumonia1 Pt was recently admitted to hospital for non-COVID pneumonia. Pt was discharged yesterday. He is on oral abx currently. He is doing ok. He denies any cough, sob or fever or chest pain leukocytosis1 Pt has leukocyto sis. Pt denies any fever. Pt was evaluated by hematology in the past for leukocytosis without clear diagnosis kcl Pt has borderlin e high KCL and high phos pt denies any chest pain or palpitation or weakness. pain pt has chronic l ow back pain without tomas sciatica or any leg numbness or tingling Pt denies any loss of bowel or bladder control. Pt has rather severe low back pain and stiffness. He feels worsening pain in the morning after sleep all night . He takes norco and neurontin and flexeril for pain. Pt denies any saddle area paresthesia physical Pt needs annual physical Pt has history of CVa with left side motor weakness but improving. Pt states that his speech is improving Pt denies any headache. Pt is gaining more strength. Pt has HTN Pt takes losartan and his bp is stable. Pt has BPH with LUTS. Pt takes flomax and doing ok Pt sees urology. Pt has chronic neck and back pain Pt takes norco and neurontin and doing ok. Pt has COPD .Pt takes incruse and he rarely uses albuterol. Pt needs handicap sticker completed Pt states that if he walks farther, he feels weak around his legs. Pt overall feels much better. Pt denies any headache or vision change, etc. BPH1 Pt has BPH with LUTS. Pt just saw urologist and had prostate exam . He has BPH. He is doing well with flomax. afib Pt has paroxymal afib. Pt takes xarelto. . Pt sees cardiology. Pt denies any bleeding or bruising HTN Pt states that rufus green still has been taking losartan 25 mg daily and his bp has been around 125/80. He denies any orthostasis hearing loss1 Pt has bilateral hearing loss and he is a good candidate for hearing aid. He needs hearing aid form signed pain pt has chronic l ow back pain without tomas sciatica or any leg numbness or tingling Pt denies any loss of bowel or bladder control. Pt has rather severe low back pain and stiffness. He feels worsening pain in the morning after sleep all night . He takes norco and neurontin and flexeril for pain. Pt denies any saddle area paresthesia HTN Pt has HTN, Pt t akes losartan 25 mg daily and he states that his bp has been dropping down to 90/50 sometimes and he feels mild dizziness when that happens. He denies any syncope pain pt has chronic l ow back pain without tomas sciatica or any leg numbness or tingling Pt denies any loss of bowel or bladder control. Pt has rather severe low back pain and stiffness. He feels worsening pain in the morning after sleep all night . He takes norco and neurontin and flexeril for pain. Pt denies any saddle area paresthesia hearing aid Pt has bilateral hearing loss. pt denies any ear pain or drainage Pt denies any sinus congestion CVA1 Pt is s/p recent CVA due to Afib. Pt is on xarelto now. Pt takes ASA Pt is seeing cardiology. Pt has not seen neurology as outpatient yet. Pt states that he is doing much better currently HTN Pt has HTN pt ta kes losartan and his bp is much improved HLP Pt has HLP Pt ta kes lipitor now Pt denies any myalgia Pt needs refill pain pt has chronic l ow back pain without tomas sciatica or any leg numbness or tingling Pt denies any loss of bowel or bladder control. Pt has rather severe low back pain and stiffness. He feels worsening pain in the morning after sleep all night . Pt is seeing neurosurgery and he is doing PT now and will do pain injections soon .Pt is not surgical candidate. Pt has not started pain management yet Pt is doing PT which helps slightly .He had CT L spine done which did show L 2 nerve impingement.. He takes norco and neurontin and flexeril for pain. Pt denies any saddle area paresthesia CVA The risk factors include age > 50. Additional information: Pt is s/p CVA with left side weakness due to most likely paroxymal afib. Pt just saw cardiology and he is off ASA and plavix and he is on xarelto now. Pt is doing home PT. Pt denies any mental status change or worsening symptoms .Pt denies any speech. CVA1 Pt c/o acute ons et of left upper and lower extremity weakness with slurred speech on 06/17/21 with feeling sleepy and he was transferred to ER with acute finding of right side CVA. Pt had negative cardiac echo and carotid doppler study. He is on plavix and ASA now and he is off lovastatin and he started lipitor by hospital. he is currently wearing holter monitor. He is home currently and his speech is improving slowly as well as left side weakness. Pt is doing home PT. Pt denies any headache. his bp has been consistently high since CVA and is around 155/80 range at home per . He denies any vision change.. he denies any left side numbness or tingling .He feels fatigue with slightly poor balance back pain1 pt has chronic l ow back pain without tomas sciatica or any leg numbness or tingling Pt denies any loss of bowel or bladder control. Pt has rather severe low back pain and stiffness. He feels worsening pain in the morning after sleep all night . Pt is seeing neurosurgery and he is doing PT now and will do pain injections soon .Pt is not surgical candidate. Pt has not started pain management yet Pt is doing PT which helps slightly .He had CT L spine done which did show L 2 nerve impingement.. He takes norco and neurontin and flexeril for pain. 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 his cpap machine is being recalled. Pt needs new cpap machine back pain1 pt has chronic l ow back pain without tomas sciatica or any leg numbness or tingling Pt denies any loss of bowel or bladder control. Pt has rather severe low back pain and stiffness. He feels worsening pain in the morning after sleep all night . Pt is seeing neurosurgery and he is doing PT now and will do pain injections soon .Pt is not surgical candidate. Pt has not started pain management yet Pt is doing PT which helps slightly .He had CT L spine done which did show L 2 nerve impingement. HTN Pt has borderlin e HTN Pt denies any chest pain or headache. hearing loss1 Pt has chronic b ilateral hearing loss. Pt had history of loud noise exposure during career. Pt denies any ear pain Pt denies any drainage Pt denies any sinus congestion pain pt has chronic l ow back pain without tomas sciatica or any leg numbness or tingling Pt denies any loss of bowel or bladder control. Pt has rather severe low back pain and stiffness. He feels worsening pain in the morning after sleep all night . Pt is seeing neurosurgery and he is doing PT now and will do pain injections soon .No surgery yet lung nodule1 Pt has stable stew ng nodule and COPD and CAD on chest CT pt denies any hemoptysis, worsening sob or cough Pt uses incruse Pt denies any worsening sob Pt uses albuterol 2-3 times per week tobacco pt just had LDCT for lung CA screening and he received a normal letter Pt no longer smoking COPD Pt has COPD Pt u ses incruse and he rarely needs to use albuterol. 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 Pt has rather severe low back pain and stiffness. He feels worsening pain in the morning after sleep all night . Pt is seeing neurosurgery and he will do CT of L spine and he was told to hold off pain management injection for now until Ct scan pain pt has chronic l ow back pain without tomas sciatica or any leg numbness or tingling Pt denies any loss of bowel or bladder control. Pt has rather severe low back pain and stiffness. He feels worsening pain in the morning after sleep all night .pt has masha with neurosurgery in one week. Pt did talk to pain management and is waiting for neurosurgery masha first before making masha with pain management. tobacco1 Pt has 42 pack y ear tobacco Pt no longer smoking pt does have COPD Pt uses incruse. Pt needs LDCT Pt denies any hemoptysis worsening sob or cough pain1 pt has chronic l ow back pain without tomas sciatica or any leg numbness or tingling Pt denies any loss of bowel or bladder control. Pt has rather severe low back pain and stiffness. He feels worsening pain in the morning after sleep all night .pt has masha with neurosurgery in February. ED Pt has ED. Pt de nies any low libido Pt denies any testicular pain, atrophy or nodule Pt wants refill of sildenafil. Pt states that [employer] is much cheaper back pain1 Pt has chronic l ow back pain. pt denies any sciatica or any loss of bladder or bowel control. Pt states that he has constant low back pain, worse with prolonged walking or standing. MRI of L spine showed postop change with transfer lesions above and below the fixation. pt had L4-S1 fusion 6 years ago. Pt takes norco and neurontin HLP Pt has HLP ,Pt t akes lovastatin pt denies any myalgia Pt needs refilled back pain1 Pt has chronic l ow back pain Pt states that back pain improving since he quit driving pt denies any sciatica or any loss of bladder or bowel control. MRI done at [facility] but result not available today leukocytosis1 Pt has persisten t leukocytosis. Pt is seeing hematology. pt no longer smoking. Pt denies any fever or recurrent infection HLP Pt has HLP Pt ta kes lovastatin. his lipid profile is ok Pt denies any myalgia back pain1 Pt has chronic l ow dimple pain. Pt denies any sciatica or any loss of bladder control . Pt had lumbar spine fusion in the past. Pt takes mobic, neurontin and norco PNR for pain. Pt denies any leg numbness or tingling. Pt states that he notices worsening pain on right side of lumbar spine with radiation down to right buttock recently whenever he walks and is causing problem. he denies any radiating pain down right legs Pt denies any loss of bladder control or leg neuropathy. he feels sharp pain radiating down to right buttock. Pt tried lyrica but not really helping ,Pt states that main pain is around low back area Pt states that he feels like a knife jabbing his low back whenever he walks. Pt states that he can not stand too long without severe pain. 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 Pt thinking about quitting his job BPH1 Pt has BPH with LUTS Pt doing ok with flomax Pt denies any dribbling ,urinary difficulty. Pt denies any ejaculation issue HLP Pt has HLP Pt ta kes lovastatin pt denies any myalgia pain Pt has chronic l ow dimple pain. Pt denies any sciatica or any loss of bladder control . Pt had lumbar spine fusion in the past. Pt takes mobic, neurontin and norco PNR for pain. Pt denies any leg numbness or tingling. Pt states that he notices worsening pain on right side of lumbar spine with radiation down to right buttock recently whenever he walks and is causing problem. he denies any radiating pain down right legs Pt denies any loss of bladder control or leg neuropathy. he feels sharp pain radiating down to right buttock. Pt tried lyrica but not really helping ,Pt states that main pain is around low back area Pt states that he feels like a knife jabbing his low back whenever he walks. Pt states that he can not stand too long without sever pain. pain Pt has chronic l ow dimple pain. Pt denies any sciatica or any loss of bladder control . Pt had lumbar spine fusion in the past. Pt takes mobic, neurontin and norco PNR for pain. Pt denies any leg numbness or tingling. Pt states that he notices worsening pain on right side of lumbar spine with radiation down to right buttock recently whenever he walks and is causing problem. he denies any radiating pain down right legs Pt denies any loss of bladder control or leg neuropathy. he feels sharp pain radiating down to right buttock. physical Pt needs annual physical. Pt has chronic neck and back pain due to DDD, which is getting worse, especially in the morning after waking up. Pt has been taking norco BID for long time ,Pt also takes neurontin Pt has sleep apnea and he uses cpap nightly an doing ok Pt has BPH Pt takes flomax and he just saw urologist and had stable prostate exam .Pt has COPD Pt takes inhalers and is doing ok .Pt als has HLP ,pt doing ok with lovastatin Pt denies any new complaints. BPH Additional infor mation: Pt has BPH. Pt doing ok with flomax. Pt sees urology pt denies any urinary symptoms. pain Pt has chronic l ow dimple pain. Pt denies any sciatica or any loss of bladder control . Pt had lumbar spine fusion in the past. Pt takes mobic, neurontin and norco PNR for pain and doing ok. Pt denies any worsening pain pain Pt has chronic l ow dimple pain. Pt denies any sciatica or any loss of bladder control . Pt had lumbar spine fusion in the past. Pt takes mobic, neurontin and norco PNR for pain and doing ok. 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 pain Pt has chronic l ow dimple pain. Pt denies any sciatica or any loss of bladder control . Pt had lumbar spine fusion in the past. Pt takes mobic, neurontin and norco PNR for pain and doing ok. Pt denies any worsening pain pain Pt has chronic l ow dimple pain. Pt denies any sciatica or any loss of bladder control . Pt had lumbar spine fusion in the past. Pt states that his low back pain has been getting worse lately. Pt has hard time getting out of bed in the morning. X ray showed advanced DDD with post op changes. COPD Pt has COPD Pt s tarted incruse last month and he notices less sob .Pt needs to use less albuterol. Pt denies any hemoptysis pain Pt has chronic l ow dimple pain. Pt denies any sciatica or any loss of bladder control . Pt had lumbar spine fusion in the past. Pt states that his low back pain has been getting worse lately. Pt has hard time getting out of bed in the morning. X ray showed advanced DDD with post op changes. 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 Pt denies any sciatica or any loss of bladder control . Pt had lumbar spine fusion in the past. Pt states that his low back pain has been getting worse lately. Pt has hard time getting out of bed in the morning. Pt has not done x ray yet pt doing ok with current meds . HLp Pt has HLP Pt ta kes lovastatin. Pt needs refill. Pt denies any myalgia. His lipid profile is ok leukocytosis1 Pt has mild leuk ocytosis. 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 Pt denies any chest pain, palpitation. his repeat TSh and T4 and T3 are ok and TFT ok also. Pt denies any dysphagia tobacco1 Pt has not done chest CT yet Pt denies hemoptysis, sob or cough leukocytosis1 Pt has mild and persistent leukocytosis. Pt also high lymp and monocytes. Pt denies any fever. back pain1 Pt has chronic l ow dimple pain. Pt denies any sciatica or any loss of bladder control . Pt had lumbar spine fusion in the past. Pt states that his low back pain has been getting worse lately. Pt has hard time getting out of bed in the morning. Pt takes norco and mobic. Pt denies any numbness. Pt failed ultram. pain Pt has chronic n caroline and back pain Pt denies any worsening pain Pt denies any loss of bladder control Pt takes norco and mobic Pt doing ok. Pt denies any numbness. Pt failed ultram tobacco1 Pt needs LDCT fo r lung CA screening ,Pt denies any hemoptysis, sob or cough Pt no longer smoking weight1 Pt has lost 10 p ounds since two years ago gradually but his weight has been stable recently ,Pt denies any appetite loss, nausea, vomiting, diarrhea, blood ins tool, early satiety abd pain platelet Pt has high plat elet and high CBC recently ,pt denies any fever or bruising or bleeding thyroid Pt has high thyr oid on recent lab Pt denies any neck pain, dysphagia, chest pain or headache pain Pt has chronic n caroline and back pain Pt denies any worsening pain Pt denies any loss of bladder control Pt takes norco and mobic Pt doing ok. Pt denies any numbness pain Pt has chronic n caroline and back pain Pt denies any worsening pain Pt denies any loss of bladder control Pt takes norco and mobic Pt doing ok platelet1 Pt has borderlin e high platelet Pt denies any clotting disorder thyroid Pt has borderlin e high thyroid Pt denies any chest pain or headache Pt denies any palpitation. Pt denies any weight loss or dysphagia wbc Pt has borderlin e high wBc Pt denies any fever, illness. chronic pain1 Pt has chronic n caroline and back pain Pt denies any worsening pain Pt denies any loss of bladder control Pt takes norco and mobic Pt doing ok ED Pt has ED. Pt de nies any testicular pain or atrophy. Pt takes sildenafil and doing ok. Pt denies any chest pain with sex Physical pt has chronic n caroline and back pain Pt has DDD Pt denies any worsening pain, Pt denies any loss of bladder control. Pt takes neurontin, norco and neurontin and doing ok COPD1 Pt has mild COPD Pt uses proair 1-2 per month Pt denies any acute sob ,Pt denies any hemoptysis, worsening sob or cough. Pt no longer smoking Physical Pt needs annual physical. Pt has BPH with LUTS Pt takes flomax daily and doing well. Pt just seen urology last month and had benign exam. Pt is on flomax Pt denies any urinary symptoms. Pt has ED. Pt takes sildenafil and doing well .Pt denies any chest pain with sex . has chronic low back and neck pain Pt denies any worsening pain, Pt denies any loss of bladder control. Pt has HLP, Pt takes lovastatin PT denies any myalgia chronic pain1 Pt has chronic n caroline and back pain Pt denies any loss of bladder control pt denies any worsening pain Pt denies any numbness or arm or leg Pt failed NSIAD and ultram. Pt denies any loss of bladder control. Pt doing well with mobic, neurontin and norco and flexeril. fatigue1 Pt took my advic e and he turned up the setting of his cpap from 5 to 10 and he feels like a new man. pt feels much more energy and refreshed He sleeps much better now COPD1 Pt has COPD Pt n o longer smoking pt rarely uses albuterol. Pt denies any hemoptysis, worsening sob or cough BPH1 Pt has BPH. pt d oing well with flomax. pt denies any urinary hesitancy, urgency, frequency or difficulty with urination sleep apnea1 Pt has sleep chief strategy officer ea pt uses cpap. Pt has been using same setting for several years Pt does snore Pt states that he wakes up in the morning feeling tired for the past 5 months. Pt states that he tends to feel slightly better after getting up for several hours, however, he feels that he is not getting enough rest when he gets up in the morning. chronic pain Pt has chronic n caroline and back pain Pt denies any loss of bladder control pt denies any worsening pain Pt denies any numbness or arm or leg Pt failed NSIAD and ultram. pt notices slightly more right side low back pain recently pt denies any loss of bladder control. Pt doing well with mobic, neurontin and norco and flexeril HLP Pt takes lovasta tin Pt denies any myalgia chronic pain Pt has chronic n caroline and back pain Pt denies any loss of bladder control pt denies any worsening pain Pt denies any numbness or arm or leg Pt failed NSIAD and ultram. pt notices slightly more right side low back pain recently pt denies any loss of bladder control. Pt doing well with mobic, neurontin and norco and flexeril ED Pt has ED, Pt ta kes viagra PRn and doing ok pt denies any chest pain with sex, pt does not use nitrate chronic pain1 Pt has chronic n caroline and back pain Pt denies any loss of bladder control pt denies any worsening pain Pt notices mild numbness left arm and right leg. Pt failed NSIAD and ultram. pt notices slightly more right side low back pain recently pt denies any loss of bladder control neck pain1 Pt has chronic n caroline pain Pt c/o left radiculopathy intermittently ,Pt denies any weakness chronic pain Pt has chronic n caroline and back pain due to ddd. Pt denies any worsening pain. Pt denies any loss of bladder control. Pt doing ok with norco and mobic. pt failed NSAID and ultram ED Pt doing well wi th viagra. Pt denies any chest pain during sex Pt does not take nitrate HLP Pt has HLP Pt ta kes lovastatin. pt denies any myalgia ED Pt states that s ildenafil 50 mg did not help but 100 mg helped him a lot. Pt denies any chest pain during sex Pt denies any prolonged erection chronic pain1 Pt has chronic b ack and neck pain Pt has some arthritis of hand. Pt takes mobic and norco PRN for pain. pt denies any worsening pain Pt denies any loss of bladder control chronic pain Pt has chronic b ack and neck pain Pt has some arthritis of hand. Pt takes mobic and norco PRN for pain. pt denies any worsening pain Pt denies any loss of bladder control BPH1 Pt has BPH. Pt s een urology several months ago and had normal digital prostate exam. He has BPH. He is on flomax and he denies any urinary symptoms Pt denies any ejaculation issue. ED Pt has ED Pt den ies any testicular pain or nodule. Pt wants to try viagra. Pt has good libido sleep apnea1 Pt has sleep chief strategy officer ea. Pt uses CPAP nightly and doing well. Pt denies any fatigue chronic pain1 Pt has chronic n caroline and back pain pt denies any worsening pain Pt denies any loss of bladder control Pt has 5/10 pain. Pt is on mobic Pt failed NSAID HLP Pt has not gone up on his lovastatin yet .Pt denies any myalgia. Pt denies any chest pain chronic pain Pt has chronic n caroline and back pain. Pt denies any worsening pain Pt denies any loss of bladder control. Pt doing ok with mobic and norco PRN for pain. Pt filed Ultram ED1 Pt states that v iagra is not covered . Pt denies any testicular pain or atrophy Pt denies any penile discharge Pt has ED Pt has good libido COPD1 Pt has Ct eviden fouzia of COPD pt only uses ventolin currently. Pt states that he uses ventolin 1-2 per week. Pt denies any hemoptysis, worsening sob or any coughing. Pt has not been using symbicort. Pt denies any acute sob CAD Pt has signs of CAD on CT scan Pt told me he had negative cardiac stress recently. Pt denies any chest pain Pt is back on lovastatin now due to itching with lipitor and also zetia. Pt does see cardiology chronic pain1 Pt has chronic n caroline and back pain Pt denies any worsening pain Pt denies any loss of bladder control. pt has 6/10 pain. Pt takes morbid and norco PRN for pain and doing ok. COPD Pt has COPD. His insurance does not approve for symbicort. Pt has only been using proair only 1-2 per month. Pt denies any coughing, sob or hemoptysis. tobacco1 Pt has more than 30 pack year tobacco history. Pt needs LDCT soon. Pt denies any coughing ED Pt has ED. Pt de nies any testicular pain or nodule. Pt has good libido. BPH1 Pt has BPH with some urinary difficulty. Pt takes flomax. Pt just seen urology. Pt denies any worsening symptoms chronic pain Pt has chronic l ow back pain Pt denies any worsening pain Pt denies any loss of bladder control. pt failed NSAID and ultram. Pt takes norco PRN for pain and doing ok HLP Pt has mild high TG. pt takes lovastatin. His lipid profile is stable. Pt denies any myalgia inguinal hernia1 Pt has left ing uinal hernia. Pt just seen surgeon and he will have surgery next week. Pt denies any worsening pain Pt denies any urinary symptoms or any constipation or bruising HLP Pt has HLP Pt ta kes lovastatin. pt denies any myalgia chronic pain Pt has chronic l ow back and neck pain Pt denies any worsening pain Pt has DDD. Pt denies any loss of bladder control. Pt failed NSAID and ultram. inguinal mass1 Pt notices a bul ge left inguinal mass for 4 weeks. Pt denies any pain. Pt denies any injury. Pt denies any testicular pain. Pt states that the bulge is not reducible. Pt denies any testicular pain or any urinary issue. pt denies any constipation or diarrhea. PHysical Pt needs annual physical. pt has BPH with LUTS pt is on flomax and doing well. pt has chronic neck and back pain. Pt denies any worsening pain. Pt takes mobic and norco PRN for pain and doing ok. Pt denies any loss of bladder control. Pt also has HLP. Pt takes lipitor and zetia which is causing him to feel itchy all over body. Pt denies any chest pain. Pt does not have any known history of CAD. Pt just had negative cardiac stress test patient has COPD. Patient no longer smoking. Patient takes Symbicort daily. Patient rarely uses pro-air. Patient denies any acute shortness of breath.. 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 Pt denies any myalgia. Pt is off lovastatin. BPH Additional infor mation: Pt seen urology at [facility] last month and he was told that his prostate is normally mild swelling but ok for his age. He was not sure if he supposes to take flomax or not. He does have difficulty. chronic pain Pt has chronic b ack and neck pain. Pt failed NSAID and ultram Pt takes norco PRN for pain and also mobic PRn for pain. Pt doing ok. pt denies any loss of bladder control CAD Pt told me he peck d another negative cardiac stress test recently. Pt denies any chest pain. Pt is on zocor, and ? lipitor? Pt is very confused. BPH1 Pt has BPH with urinary symptoms Pt takes flomax and doing ok. pt has appointment with urology at [facility] next week. Pt needs flomax refilled COPD1 Pt has COPD Pt s till smokes here and there. His pulmonary no longer takes his insurance. Pt uses symbicort and he rarely uses albuterol. Pt denies any acute sob chronic pain Pt has chronic n caroline and back pain Pt takes norco prn for pain and doing ok. Pt takes mobic PRN. Pt denies any worsening pain chronic pain1 Pt has chronic n caroline and back pain. Pt denies any worsening pain. pt takes mobic PRN and norco for pain pt failed NSAID and ultram. Pt has 7/10 pain BPH1 Pt has BPH with LUTS Pt takes flomax. Maria G Farooq no longer takes [facility] Pt states that he canot urinate without flomax. Pt also unable to afford viagra colon polyp1 Pt has colon ana paula yp on recent colonoscopy Pt denies any upper GI issue Pt takes mobic PRn and almost daily. pt denies any abd pain. Pt denies any GERD, nausea, vomiting sleep apnea1 Pt has sleep chief strategy officer ea and he uses cpap nightly. Pt also has COPD Pt has masha with pulmonary MD today. Pt doing ok pt denies any acute sob chronic pain Pt has chronic n caroline and back pain due to DDD pt denies any worsening pain Pt denies any loss of bladder control. Pt failed NSAID BPH1 Pt has BPH with LUTS. Pt is on flomax Pt has not heard from Dr. Cummins yet Pt denies any urinary symptoms ED Pt has ED pt nee ds viagra pt denies any chest pain with sex Pt has good libido. Pt did well with viagra COPD1 Pt has COPD Pt q uit smoking Pt uses symbicort Pt has not needed to use albuterol for a while. Pt denies any acute sob blood Pt has positive fecal globin Pt denies any upper GI pain Pt denies any visible bleeding Pt just had colonoscopy which was benign. CAD1 Pt has CAD on Ct scan. Pt denies any chest pain Pt had normal stress test 3 years ago. Pt will do stress test again soon HLP Pt has mild high TG. Pt is on lovastatin Pt denies any myalgia CAD1 Pt has signs of CAd Pt denies any chest pain Pt will have stress test next month Pt takes baby asa daily COPD1 Pt uses symbicor t only Pt states that incruse is too expensive pt uses rescue inhaler 3-4 per week. which is stable. Pt has not needed to use more inhaler Pt has not seen pulmonary for 2 year. Pt still smoking very small amount of cig daily blood stool1 Pt has positive blood in stool. Pt denies any visible blood in stool and he denies any GI issue or weight loss. chornic pain Pt has neck and back pain.. Pt takes norco PRn for pain pt denies any worsening pain Pt denies any loss of bladder control BPH Additional infor mation: Pt has BPH with LUTS. pt takes flomax and doing ok. Pt is noncompliant with urology. Pt denies any acute symptoms with flomax. chronic pain Pt has chronic n caroline and back pain. Pt denies any worsening pain Pt denies any loss of bladder control Pt failed NSIAD and ultram tobacco1 Pt stopped smoki ng. Pt has not been smoked for 2 weeks. Pt has not been using zyban. Pt does not have any urge per patient CAD Pt has signs of mild CAD Pt denies any chest pain. Pt is on baby ASA daily Pt has masha with cardiology today COPD1 Pt has COPD Pt o nly uses symbicort. Pt states that he could not afford incruse. Pt does not use proair at all. he denies any sob now tobacco1 Pt smokes about 1/2 ppd Pt has hard time trying to quit CAD1 Pt has signs of CAD on CT but he denies any chest pain Pt had negative cardiac work up. Pt is on statin now Pt denies any chest pain chronic pain Pt has chronic b ack and neck pain P takes norco and also flexeril PRn for pain and doing ok pt denies any worsening pain or any loss of bladder control chronic pain Pt has chronic n caroline and back pain pt denies any worsening pain. Pt denies any loss of bladder control. Pt takes norco and mobic PRN. ED Pt has ED. Pt de nies any testicular pain or nodule. Pt denies any testicular atrophy. Pt could not afford viagra HLP Pt has HLP. Pt t akes lovastatin. Pt denies any myalgia COPD1 Pt has COPD Pt t akes symbicort and incruse and ven[place]lin PRn. Pt uses ventolin 1-2 per week. Pt still smoking BPH Additional infor mation: Pt has BPH with LUTS. Pt takes flomax. Pt has not seen urology for one year. Pt denies any acute urinary symptoms.. tobacco1 Pt has 40 pack y ear tobacco pt has COPD. Pt uses incurse and ven[place] PRN, Pt unable to quit smoking sleep apnea1 Pt has been usin g CPAP nigthly for at least 5 hours. Pt feels more energy and better rested in the morning chronic pain1 Pt has chornic l ow back and neck pain pt states that his low back pain has been worse and he sometimes has to takes two norco per day. Pt denies any sciatica or any loss of bladder cotnrol chronic pain Pt has chronic n caroline and back pain, Pt has DDD. ,Pt denies any worsening pain ,Pt denies any loss of bladder control HLP Pt has HLP .Pt t akes lovastatin and his lipid profile ok .Pt denies any myalgia PHysical Pt needs annual physical. Pt has chornic neck and back pain. Pt had neck surgery. Pt takes norco PRn for pain. pt denies any worsening pain. Pt has COPD. Pt takes incurse, symbicort and proair. Pt uses proair 1-2 per week. Pt denies any acute sob. Pt denies any loss of bladder control. Pt has sleep apnea and he uses CPAP nightly. Pt doing ok COPD Pt has COPD. Pt no longer smoking. Pt states that he started incruse last month and he has not needed to use proair at all. Pt denies any acute sob chronic pain1 Pt has chronic b ack and neck pain Pt take norco and mobic PRN and doing ok PT denies any worsening pain. Pt denies any loss of bladder control COPD1 Pt has COPD. Pt uses symbicort and he rarely uses albuterol Pt on average uses albuterol 7-8 times per month Pt denies any acute sob BPH BPH1 Pt states that rufus green is on flomax now by cardiology. His prostate exam was fine recenlty by me and also he had prostate exam done by urology and he is on flomax now. He was told prostate exam was normal by urology. Pt has some slow stream Pt doing better with flomax back pain1 Pt has chronic l ow back pain Pt denies any worsening pain pt ashu any loss of bladder control Pt takes norco and mobic PRN HLP Pt has HLP Pt ta kes lovastatin. Pt denies any myalgia. He has mild high tG. Pt is working on low carb diet chornic pain Pt has chronic b ack and neck pain. Pt denies any worsenign pain. Pt takes norco PRn for pain. Pt denies any loss of bladder control back pain1 Pt has chronic n caroline and back pain pt takes norco PRN and mobic every other day. Pt doing ok. Pt denies any stomach upset or worsening pain. Pt denies any loss of bladder control hep C Pt needs hep c s creening. Pt has not done hep C lab yet PHysical Pt needs annual physical. Pt has COPD and he uses symbicort and ventolin PRN. Pt rarely uses venotlin Pt no longer smoking Pt takes lovastatin for HLP Pt has chornic neck and back pain Pt doing ok with mobic and norco PRN. Pt denies any worsening maury Pt denies any loss of bladder control ED Pt has ED. Pt st ates that yohimbine worked but it caused him to feel sweaty, headache and dizziness Pt did not have chest pain. Pt told me he had to stop yohimbine and he threw it away. Pt states that his above feeling went away completely. Pt denies any chest pain, palpitation., sweaty, etc without yohimbine hep c Pt needs hep C s creening. Pt does not use IV drug. sleep apnea1 Pt has sleep chief strategy officer ea. Pt has been compliant with CPAP. Pt feels more energy. back pain1 Pt has chronic n caroline and back pain. Pt denies any worsening pain. pt denies any loss of bowel or bladder control. Pt takes norco for pain PRN. Pt takes mobic every other day now. Pt states that he does not have any gi issue and his pain is well controlled. Pt denies any loss of bowel or bladder control COPD1 Pt has COPD. Pt has granuloma. Pt uses symbicort and albuterol. Pt sees pulmonary. Pt denies any acute SOB. Pt no longer smoking chronic pain1 Pt has chronic b ack and neck pain. Pt states that he does not do well without mobic. Pt takes norco and flexeril PRn. Pt denies any worsening pain. Pt denies any stomach issue with mobic ED1 Pt has ED. Pt peck s goog libido. Pt unable to afford cialis. Pt denies any testicular pain or nodule sleep apnea Relevant history : a BMI of 25.24. Additional information: Pt restartd the CPAP nightly and he feels well with more energy and more rested and less pain. chronic pain Pt has chronic b ack and neck pain. Pt is on norco PRN and doing ok Pt also takes mobic Pt denies any worsening pain Pt denies any loss of bowel or bladder control HLP Pt has mild high TG Pt takes lovastatin. Pt does not have any known CAD. His lipid profie is normal now. Pt also has borderline A1c. No polyuria, polydipsia copd Pt has COPD Pt u ses symbicort and albuterol PRN. Pt see pulmonary. Pt has more than 40 pack year tobacco history and he quit 3 years ago. Pt denies any acute SOB SLEEP APNEA1 Pt has sleep chief strategy officer ea, Pt supposes to use CPAP but he has not. Pt states that he is sleeping fine now without snoring Pt denies any fatigue in the morning. back pain1 Pt has chronic l ow back apin. Pt denies any worsening pain. Pt denies any loss of bowel or bladder control HLP Pt has HLP. Pt i s taking lovastatin. Pt is seeing cardiology but he does not have any CAD. back pain1 Pt has been havi ng worsening low back pain for two weeks. Pt stopped mobic last month. Pt denies any sciatica or any loss of bowel or bladder control. Pt has difficulty standing straight due to back pain. Pt denies any injury. Pt has 7/10 pain prostate nodule Identified risk factors include age > 50 years. Additional information: Pt just seen urology two months ago and had normal prostate exam per pt. Pt denies any urinary symptoms. back pain1 Pt has chronic l ow back pain. Pt had history of neck and back surgery. Pt has DDD. Pt denies any worsening pain, Pt denies any loss of bowel or bladder control. Pt has 7/10 pain. pt states that mobic and norco helps his pain ED1 Pt has ED Pt has good libido. Pt states that cialis works well for him. pt denies any chest pain with sex CAD Pt was evaluted by cardiology in the past but he told me he had negative stress test. Pt is on lovastatin. Pt denies any chest pain or headache. Pt denies any myalgia sleep apnea1 pt has sleepa pn ea. and COPD. Pt is on symbicort and cpAP. pt rarely uses albuterol. Pt does not smoke back pain1 Pt has chronic l ow back pain. Pt had history of back surgery. Pt denies any scaitica. Pt has 6/10 pain. Pt doing well with norco and mobic Pt denies any worsening pain COPD Pt has COPD. Pt uses symbicort and venotolin. Pt no longer smokes. Pt is seeing pulmonary physician and he never uses rescue inhaler since on symbicort. Pt denies any acute SOB chronic pain Pt has chronic l ow back pain. Pt has knee pain Pt is s/p lumbar spine surgery and also knee replacement Pt takes norco and mobic and pain well controlled. HLP pt has mild high TG. Pt takes lovastatin and doing well. Pt denies any myalgia. Pt is on low fat and low carb diet ED Pt has ED Pt has good libido. Pt denies any testicular pain or nodule back pain1 Pt has chronic l ow back pain. Pt denies any worsening pain ,Pt denies any loss of bowel or bladder control. Pt has back stiffness but stable nevus Pt has dark nevu s left temporal area Pt has appointment with plastic surgeon next week sleep apnea Relevant history : a BMI of 24.94. Additional information: Pt has sleep apnea and he uses CPAP and he also uses symbicort and venotlin for his COPD. pt sees pulmonary. Pt rarely uses venotlin. nevus1 Pt notices a nemesio k spot on left temporal area for years but recently changed in color and seems darker. Pt denies any bleeding or pain back pain1 Pt has chronic l ow back pain. Pt denies any loss of bowel or bladder control. Pt takes norco and mobic and doing ok Pt denies any worsening pain. Pt denies any sciatica or any numbness. chronic pain Pt has chronic b ack and knee pain. Pt denies any worsening pain. Pt takes norco and mobic daily and doing ok. Pt denies any stomach issue. Pt denies any loss of bowel or bladder control ED Pt c/o ED Pt den ies any testicular pain or nodule Pt has good libido. Pt has above symptoms for several years prostate nodule Identified risk factors include age > 50 years. Additional information: Pt seen urology and was prostate nodule benign.. chrnoic pain Pt has chronic l ow back pain and knee pain. Pt had back and knee surgery. Pt states that mobic helps Pt denies any GI complaints Pt taks norco for pain PRN and doing ok. Pt denies any worsening pain. Pt denies any sciatica. Pt denies any numbness glucose Pt has high gluc ose. Pt denies any polyuria, polydipsia. HLP Pt has elevated TG Pt is not on any diet prostate nodule Identified risk factors include age > 50 years. Additional information: Pt has prostate nodule. His PSA is ok. Pt told me Dr. Ricardo no longer takes his insuance. He deneis any urinary symptoms. PHysical PT needs annual physical. Pt takes lipitor for HLP. Pt recently had right knee replacement and also back surgery. Pt has chronic back and knee pain. Pt denies any sciatica. Pt denies any loss of bowel or bladder control. Pt has COPD and he uses symbicort daily and albuterol PRN. Pt currently uses albuteorl once per day., Pt states that he wants something for arthritis. Pt used to take motrin which worked well. Pt denies any other complaints Instructions Date Instruction Additional Infor tena Special diet education Related t o Body mass index (BMI) 23.0-23.9, adult Increase physical activity Relat ed to BPH with LUTS Weight gain advised Related to B sabino mass index (BMI) 23.0-23.9, adult Increase physical activity Relat ed to Sleep apnea Weight gain advised Related to B sabino mass index (BMI) 23.0-23.9, adult Increase physical activity Relat ed to Chronic pain syndrome Increase physical activity Relat ed to Chronic pain syndrome Weight gain advised Related to B sabino mass index (BMI) 23.0-23.9, adult Increase physical activity Relat ed to Chronic pain syndrome Weight management Related to Chr onic pain syndrome Increase physical activity Relat ed to Chronic pain syndrome Increase physical activity Relat ed to Chronic pain syndrome Increase activity. Related to Hy perlipidemia Follow a low sodium diet. Relate d to Hyperlipidemia Increase physical activity Relat ed to Chronic pain syndrome Increase physical activity Relat ed to BPH with LUTS Weight management Related to Ing uinal hernia Increase physical activity Relat ed to Encounter for general adult medical exam w abnormal findings Special diet education Related t o Body mass index (BMI) 25.0-25.9, adult Increase physical activity Relat ed to Chronic pain syndrome Increase physical activity Relat ed to Emphysema Increase physical activity Relat ed to Emphysema Increase physical activity Relat ed to Chronic pain syndrome Quit smoking Related to Occul t blood in stool Increase physical activity Relat ed to BPH with LUTS Quit smoking Related to Emphy sema Stop smoking. Related to Hyper lipidemia Prescribed Diet Educ ation/Lifestyle Education Regarding Diet Related to Dietary Surveillance and Counseling Quit smoking Related to Chron ic pain syndrome Prescribed Activity and Exercise Education Related to Dietary Surveillance and Counseling Quit smoking Related to Encou nter for general adult medical exam w abnormal findings Prescribed Activity and Exercise Education Related to Dietary Surveillance and Counseling Prescribed Diet Educ ation/Lifestyle Education Regarding Diet Related to Dietary Surveillance and Counseling Compliant with medic ation instruction Related to COPD Prescribed Diet Educ ation/Lifestyle Education Regarding Diet Related to Dietary Surveillance and Counseling Prescribed Activity and Exercise Education Related to Dietary Surveillance and Counseling Assessments Type Assessment Date assessment Encounter for general adult medi teena exam w abnormal findings assessment Iron deficiency anemia 25 assessment Chronic pain syndrome assessment BPH w/ lower urinary tract sympt om assessment Centrilobular emphysema 025 assessment Headache assessment Thrombocytosis assessment Essential (primary) hypertension assessment Mixed hyperlipidemia assessment Atrial fibrillation Mental Status Date Cognitive Assessment Orientation - Catharpin ed to time, place, person, situation.
[2024-08-04 09:26] LABS: Estimated Glomerular Filt Rate > 60
== END 2024-08-04 08:50 | disposition home or self-care (01) ==
PROVIDERS: PCP Emergency Medicine; Visit Provider Emergency Medicine
DX: R51.9 Headache, unspecified (principal); I25.2 Old myocardial infarction
CPT/HCPCS: 70496; Q9967